=== PATIENT | female | born 1995 | race Caucasian/White ===

== ENCOUNTER → 2020-10-04 13:02 | Outpatient (CLI) | payer OTHER, SELFPAY ==
[2020-10-04 10:15] VITALS: BMI 25.7
[2020-10-06 21:06] LABS: HPV Reflexed? NOT INDICATED
== END ==
LOC: LAB 13:05 → LABSPEC 13:12
PROVIDERS: Visit Provider Nurse Practitioner Women's Health
DX: Z12.4 Encounter for screening for malignant neoplasm of cervix (principal)
CPT/HCPCS: 88175; G0145

== ENCOUNTER → 2021-01-30 18:15 | Emergency (ER) | payer OTHER, SELFPAY ==
[2020-10-04 10:15] VITALS: BMI 25.7
[2021-01-30 18:15] VITALS: BP 136/77; PULSE 85; RESP 16; TEMP 36.4; O2SAT 100; BMI 24.0
--- NOTE | 2021-01-30 18:59 | EDS_ITS ---
HPI HPI - Female History of Present Illness Chief Complaint: Vag Bld, Preg Informant: patient Narrative Narrative: Patient is a 25-year-old previous healthy female who presents to the emergency department for vaginal spotting. She is approximately 6 weeks . This is her first . She was sent in by her IMMIGRATION PATROL INSPECTOR for laboratory testing. She had some mild abdominal cramping with this. She denies any active bleeding. She denies any urinary symptoms. No back pain. No leg swelling or calf pain. She is not any blood thinning medications. She has not had an ultrasound yet due to the early gestation. She denies any chest pain, shortness of breath or lightheadedness. PFSH PFSH Allergy/AdvReac Type Severity Reaction Status Date / Time nitrofurantoin Allergy Intermediate Hives Verified 01/30/21 18:17 amoxicillin Allergy Mild Rash Verified 01/30/21 18:17 clindamycin Allergy Mild Rash Verified 01/30/21 18:17 Social History household members: spouse number of children: 0 current occupational status: employed current occupation: [employer] history of recent travel: No sexually active: Yes Smoking Status: Never smoker alcohol intake: current alcohol intake frequency: a few times a month substance use type: does not use what type of physical activity do you participate in: none seatbelt use: always do you feel safe at home: Yes additional social history: - Yordan BARNETT ROS ED Constitutional Constitutional ED: Denies chills or fever(s) Eyes Eyes: Denies change in vision ENT ENT ED: Denies epistaxis or rhinorrhea Cardiovascular Cardiovascular: Denies chest pain or palpitations Respiratory/Chest Respiratory/Chest: Denies cough, dyspnea or dyspnea on exertion Gastrointestinal Gastrointestinal: Reports abdominal pain; Denies diarrhea, nausea or vomiting Genitourinary Genitourinary ED: Denies dysuria, hematuria or urinary frequency Musculoskeletal Musculoskeletal: Denies back pain or neck pain Integumentary Denies rash Neurologic Neurologic: Denies dizziness, headache(s) or weakness EXAM Physical Exam Const Vital Signs: 01/30/21 18:15 Temperature 97.6 F L Temperature Source Temporal Pulse Rate 85 Respiratory Rate 16 Blood Pressure 136/77 H Blood Pressure Mean 96 Pulse Ox 100 Oxygen Delivery Method Room Air Positive well nourished and well developed General Appearance ED: well developed and NAD HEENT Reports normocephalic and head/scalp atraumatic Eyes PERRL and EOMs intact bilaterally Neck supple Resp normal respiratory effort and clear to auscultation bilaterally Auscultation: Negative for rales, rhonchi or wheezes Cardio regular rate, regular rhythm and no murmurs GI normal to inspection, nondistended, normoactive bowel sounds and non-tender Palpation: soft; Negative for guarding or rebound tenderness present Back/Spine no CVA tenderness Extremity normal to inspection General Extremety ED: Negative for edema or tenderness General Extremity: Negative for edema Neuro oriented x3, CN's II-XII intact bilaterally and no sensory deficits noted Sensorium / Orientation: alert Motor Exam: strength 5/5 throughout Psych mental status grossly normal Skin no rashes or lesions noted MDM MDM MDM Narrative Medical decision making narrative: Patient presents to the emerge department for vaginal spotting at 6 weeks . Upon arrival to the emergency department vital signs within normal limits. She is in no acute distress. Her IMMIGRATION PATROL INSPECTOR wanted her to have lab test done. Patient was found out actually not supposed to have come to the emergency department but just to have her lab work done. Patient had medical screening exam and she is stable for discharge to have this lab work done as an outpatient. Discharge Plan Triage Chief Complaint: Vag Bld, Preg ED Provider: Greyson Timmons Dx/Rx/DC Orders Clinical Impression: Vaginal bleeding in Disposition Disposition: Home, self care
--- NOTE | 2021-01-30 19:01 | ED.RN ---
REGISTRATION CALLED AND STATED THAT THIS PT HAS AN ORDER FOR LAB WORK FROM HER DR. PT SHOULD NOT HAVE BEEN SEEN IN THE ED.
== END | disposition home or self-care (01) ==
PROVIDERS: Emergency Provider Emergency Medicine
DX: O20.9 Hemorrhage in early pregnancy, unspecified (principal); Z3A.01 Less than 8 weeks gestation of pregnancy
CPT/HCPCS: 99281; A4216

== ENCOUNTER → 2021-01-30 19:04 | Outpatient (CLI) | payer OTHER, SELFPAY ==
[2021-01-30 18:15] VITALS: BMI 24.0
== END ==
PROVIDERS: Visit Provider Nurse Practitioner Women's Health
DX: O20.0 Threatened abortion (principal); Z3A.00 Weeks of gestation of pregnancy not specified
CPT/HCPCS: 84702; 86850; 86900; 86901

== ENCOUNTER → 2021-01-31 14:34 | Outpatient (CLI) | payer OTHER, SELFPAY ==
[2021-01-30 18:15] VITALS: BMI 24.0
--- NOTE | 2021-01-31 14:37 | US_ITS ---
STUDY: FIRST TRIMESTER OBSTETRICAL ULTRASOUND REASON FOR EXAM: Female, 25 years old viability LMP: 12/16/2020 TECHNIQUE: Transabdominal real-time exam grayscale image documentation. Transvaginal ultrasound was required for adequate visualization of the uterus and adnexal areas. TECHNICAL QUALITY: Adequate. PRIOR ULTRASOUND: None. FINDINGS: There is visualization of a single gestational sac in a normal intrauterine position. The mean sac diameter (MSD) measures 2.53 cm, indicating an estimated gestational age (EGA) of 7 weeks, 4 days. The gestational sac shape is within normal limits. There is a visualized yolk sac. The yolk sac measures 3.2 mm. The placenta is not visualized secondary to early gestational age. There is visualization of a live embryo. The crown-rump length (CRL) measures 0.42 cm, indicating an estimated gestational age (EGA) of 6 weeks, 2 days. There is demonstrated cardiac activity with a heart rate of 117 bpm. The estimated gestation age (EGA) by LMP is 6 weeks, 4 days. The estimated date of delivery (MARBIN) by LMP is 09/22/2021. The estimated gestation age (EGA) by US is 6 weeks, 6 days. The estimated date of delivery (MARBIN) by US is 09/20/2021. The uterus measures 9.0 x 7.0 x 5.7 cm. There is no demonstrated uterine fibroid. The cervix is closed. The right ovary measures 2.9 x 3.0 x 1.4 cm. There is no right ovarian cyst. There is no visualized right adnexal mass or complex lesion. Normal DOPPLER flow. The left ovary measures 3.0 x 2.2 x 1.9 cm. There is no left ovarian cyst. There is no visualized left adnexal mass or complex lesion. Normal DOPPLER flow. There is no fluid in the cul de sac. US/Transvaginal w/Preg US IMPRESSION: Single living intrauterine fetus of 6 weeks and 6 days with an MARBIN of 09/20/2021. No demonstrated intrauterine abnormality. Normal ovaries bilaterally no adnexal masses or free fluid. Electronically Signed: Soraya Flores MD at 15:59 EDT , Service support ,
== END ==
PROVIDERS: PCP Family Medicine; Referring Provider Nurse Practitioner Women's Health; Visit Provider Nurse Practitioner Women's Health
DX: O46.90 Antepartum hemorrhage, unspecified, unspecified trimester (principal); Z3A.00 Weeks of gestation of pregnancy not specified
CPT/HCPCS: 76817

== ENCOUNTER → 2021-02-01 16:51 | Outpatient (CLI) | payer OTHER, SELFPAY ==
[2021-01-30 18:15] VITALS: BMI 24.0
== END ==
PROVIDERS: PCP Family Medicine; Referring Provider Nurse Practitioner Women's Health; Visit Provider Nurse Practitioner Women's Health
DX: O20.0 Threatened abortion (principal); Z3A.00 Weeks of gestation of pregnancy not specified
CPT/HCPCS: 36415; 84702

== ENCOUNTER → 2021-02-12 13:42 | Outpatient (CLI) | payer OTHER, SELFPAY ==
[2021-01-30 18:15] VITALS: BMI 24.0
[2021-02-12 13:51] VITALS: BP 120/65; PULSE 114; RESP 16; TEMP 35.8; O2SAT 98; BMI 24.9
[2021-02-12] MEDS: 0.9% NaCl Peripheral Flush Adult/Peds IV (14:06)
[2021-02-12] MEDS: Ondansetron 4 MG/2 ML Vial IV (14:08)
[2021-02-12] MEDS: Dextrose 5%-Lactated Ringers 1,000 ML 999 ML IV (14:11)
[2021-02-12 15:21] VITALS: BP 105/55; PULSE 80; RESP 16; TEMP 35.9; O2SAT 100
== END ==
PROVIDERS: PCP Family Medicine; Referring Provider Obstetrics & Gynecology; Visit Provider Obstetrics & Gynecology
DX: E86.0 Dehydration (principal)
CPT/HCPCS: 96365; 96375; A4216; J2405

== ENCOUNTER → 2021-02-21 12:20 | Outpatient (CLI) | payer OTHER, SELFPAY ==
[2021-02-21 09:20] VITALS: BMI 24.9
[2021-02-23 03:07] LABS: Chlamydia By Nucleic Acid AMP Negative (Negative)
[2021-02-23 10:41] LABS: Gonococcus By Nucleic Acid AMP Negative (Negative)
== END ==
PROVIDERS: PCP Family Medicine; Referring Provider Obstetrics & Gynecology; Visit Provider Obstetrics & Gynecology
DX: Z34.00 Encounter for supervision of normal first pregnancy, unspecified trimester (principal)
CPT/HCPCS: 87491; 87591

== ENCOUNTER → 2021-03-07 12:30 | Outpatient (CLI) | payer OTHER, SELFPAY ==
[2021-02-21 09:20] VITALS: BMI 24.9
[2021-03-07 13:24] LABS: Absolute Lymphocyte Count 2.48 X10^3/uL (0.83-4.51); Absolute Neutrophil Count 5.4 X10^3/uL (2.0-7.7); Basophil# 0.03 X10^3/uL; Basophil% 0.4 % (0-1); Eosinophil# 0.01 X10^3/uL; Eosinophils% 0.1 % (0-5); Hematocrit 38.1 % (37-47); Hemoglobin 12.6 g/dL (12.0-15.0); Lymphocyte # 2.48 X10^3/ul (0.83-4.51); Lymphocyte % 29.6 % (19-41); Mean Corp Hgb Conc 33.1 g/dL (32-36); Mean Corpuscular Hgb 28.2 pg (27.0-32.0); Mean Corpuscular Volume 85.2 fL (81-99); Mean Platelet Vol. 10.9 fl (6.2-12.0); Monocyte# 0.47 X10^3/uL; Monocyte% 5.6 % (0-10); NRBC Flagged by Analyzer 0 % (0-5); Neutrophil # 5.38 X10^3/uL (2.7-7.7); Neutrophil % 64.1 % (47-70); Platelet Count 280 K/mm3 (150-450); RBC Distribution Width CV 11.9 % (11.6-14.6); RBC Distribution Width SD 36.6 fl (35.1-43.9); Red Blood Count 4.47 M/mm3 (4.2-5.4); White Blood Count 8.4 K/mm3 (4.4-11.0)
[2021-03-07 13:36] LABS: NATERA MAILED SPECIMEN
[2021-03-07 13:38] LABS: Prothrombin Time (Protime)PT. 12.2 SECONDS (11.7-14.9)
[2021-03-07 13:39] LABS: Partial Thromboplast Time 26.9 Seconds (24.1-36.2)
[2021-03-07 13:54] LABS: ALB/GLOB Ratio 0.9 RATIO (0.9-2.4); AST(SGOT) 13 U/L (15-37); Alanine Aminotransfer ALT/SGPT 12 U/L (13-56); Albumin, Serum 3.3 g/dL (3.2-5.0); Alkaline Phosphatase 45 U/L (45-117); Anion Gap 5 (5-15); BUN 7 mg/dL (7-18); BUN/Creat Ratio 9.7 RATIO (10-20); Calcium,Total 8.7 mg/dL (8.5-10.1); Chloride 106 mmol/L (98-107); Creatinine, Serum 0.72 mg/dL (0.55-1.02); EST Glomerular Filtration Rate 104 mL/min (>60); Est Glom Filt Rate - Afr Amer 126 mL/min (>60); Globulin 3.5 g/dL (2.2-4.2); Glucose 63 mg/dL (74-106); Potassium 3.4 mmol/L (3.5-5.1); Protein, Total 6.8 g/dL (6.4-8.2); Sodium Level 137 mmol/L (136-145)
[2021-03-07 14:00] LABS: Amphetamine Urine VISTA NEGATIVE (<1000 ng/mL); Barbiturate Urine VISTA NEGATIVE (< 200 ng/mL); Benzodiazepine Urine VISTA NEGATIVE (< 200 ng/mL); Cocaine Urine VISTA NEGATIVE (< 300 ng/mL); Ecstacy Urine VISTA NEGATIVE (< 500 ng/mL); Methadone Urine VISTA NEGATIVE (< 300 ng/mL); PCP Urine VISTA NEGATIVE (< 25 ng/mL); THC Urine VISTA NEGATIVE (< 50 ng/mL); Vista UDS pH Range 6
[2021-03-07 14:32] LABS: HIV - WCH Non-Reactive (Nonreactive); Hepatitis B Surface Antigen Non-Reactive (Nonreactive); Hepatitis C Antibody Non-Reactive (Nonreactive); Rubella IgG Reactive (Nonreactive); Syphilis Antibodies Non-reactive
== END ==
PROVIDERS: PCP Family Medicine; Referring Provider Obstetrics & Gynecology; Visit Provider Obstetrics & Gynecology
DX: Z34.00 Encounter for supervision of normal first pregnancy, unspecified trimester (principal); Z83.2 Family history of diseases of the blood and blood-forming organs and certain disorders involving the immune mechanism
CPT/HCPCS: 36415; 80053; 80307; 85025; 85610; 85730; 86703; 86762; 86780; 86803; 86850; 86900; 86901; 87086; 87088; 87340

== ENCOUNTER → 2021-06-11 11:04 | Outpatient (CLI) | payer OTHER, SELFPAY ==
[2021-06-11 11:59] LABS: Absolute Lymphocyte Count 2.29 X10^3/uL (0.83-4.51); Absolute Neutrophil Count 5.7 X10^3/uL (2.0-7.7); Basophil# 0.02 X10^3/uL; Basophil% 0.2 % (0-1); Eosinophil# 0.02 X10^3/uL; Eosinophils% 0.2 % (0-5); Hematocrit 34.2 % (37-47); Hemoglobin 11.4 g/dL (12.0-15.0); Lymphocyte # 2.29 X10^3/ul (0.83-4.51); Lymphocyte % 26.5 % (19-41); Mean Corp Hgb Conc 33.3 g/dL (32-36); Mean Corpuscular Hgb 30.2 pg (27.0-32.0); Mean Corpuscular Volume 90.7 fL (81-99); Mean Platelet Vol. 10.7 fl (6.2-12.0); Monocyte# 0.62 X10^3/uL; Monocyte% 7.2 % (0-10); NRBC Flagged by Analyzer 0 % (0-5); Neutrophil # 5.65 X10^3/uL (2.7-7.7); Neutrophil % 65.3 % (47-70); Platelet Count 230 K/mm3 (150-450); RBC Distribution Width SD 42.8 fl (35.1-43.9); Red Blood Count 3.77 M/mm3 (4.2-5.4); White Blood Count 8.7 K/mm3 (4.4-11.0)
[2021-06-11 12:09] LABS: Glucose Challenge Gest 1H 50g 106 mg/dL (70-140)
== END ==
PROVIDERS: PCP Family Medicine; Referring Provider Obstetrics & Gynecology; Visit Provider Obstetrics & Gynecology
DX: Z34.00 Encounter for supervision of normal first pregnancy, unspecified trimester (principal)
CPT/HCPCS: 36415; 82950; 85025

== ENCOUNTER 2021-06-16 22:55 | Outpatient (CLI) | payer OTHER, SELFPAY ==
[2021-06-16 23:20] VITALS: BP 110/73; PULSE 86; TEMP 35.9
[2021-06-16 23:28] VITALS: BMI 25.9
--- NOTE | 2021-06-17 21:08 | OB.TRI.PN_ITS ---
Progress Notes Date of Service: 06/16/21 Progress Note: Patient presents for triage evaluation secondary to fall with minimal abdominal involvemtn FHT: 140 Moderate variability reactive no decelerations category I tracing [place]: no regular Contractions Assessment and plan: abdominal trauma minimal, good fm was initially decrease at home Reactive NST, reassuring maternal and status patient discharged to home to follow-up as scheduled. See problem list details for additional plan information. Charges/Coding Procedures Urinary/Genital 52xxx-59xxx: 04992-57 non-stress test Interp
== END 2021-06-16 23:55 | disposition home or self-care (01) ==
LOC: WPOUT 23:15 → WP 23:16
PROVIDERS: PCP Family Medicine; Visit Provider Obstetrics & Gynecology
DX: O9A.219 Injury, poisoning and certain other consequences of external causes complicating pregnancy, unspecified trimester (principal); S39.91XA Unspecified injury of abdomen, initial encounter; Z3A.00 Weeks of gestation of pregnancy not specified; W19.XXXA Unspecified fall, initial encounter
CPT/HCPCS: 59025; 59050; 99218; G0378

== ENCOUNTER → 2021-06-26 10:34 | Outpatient (CLI) | payer OTHER, SELFPAY ==
[2021-06-26 11:08] LABS: Absolute Lymphocyte Count 2.19 X10^3/uL (0.83-4.51); Absolute Neutrophil Count 6.5 X10^3/uL (2.0-7.7); Basophil# 0.03 X10^3/uL; Basophil% 0.3 % (0-1); Eosinophil# 0.03 X10^3/uL; Eosinophils% 0.3 % (0-5); Hemoglobin 11.3 g/dL (12.0-15.0); Lymphocyte # 2.19 X10^3/ul (0.83-4.51); Lymphocyte % 23.9 % (19-41); Mean Corp Hgb Conc 33.2 g/dL (32-36); Mean Corpuscular Hgb 30.3 pg (27.0-32.0); Mean Corpuscular Volume 91.2 fL (81-99); Monocyte# 0.41 X10^3/uL; Monocyte% 4.5 % (0-10); NRBC Flagged by Analyzer 0 % (0-5); Neutrophil # 6.45 X10^3/uL (2.7-7.7); Neutrophil % 70.5 % (47-70); Platelet Count 244 K/mm3 (150-450); RBC Distribution Width CV 12.7 % (11.6-14.6); RBC Distribution Width SD 42.4 fl (35.1-43.9); Red Blood Count 3.73 M/mm3 (4.2-5.4); White Blood Count 9.2 K/mm3 (4.4-11.0)
[2021-06-26 11:29] LABS: Glucose Challenge Gest 1H 50g 142 mg/dL (70-140)
== END ==
PROVIDERS: PCP Family Medicine; Visit Provider Obstetrics & Gynecology
DX: Z34.90 Encounter for supervision of normal pregnancy, unspecified, unspecified trimester (principal)
CPT/HCPCS: 36415; 82950; 85025

== ENCOUNTER → 2021-07-02 06:53 | Outpatient (CLI) | payer OTHER, SELFPAY ==
[2021-07-02 07:59] LABS: Glucose GTT-Gestation. Fasting 85 mg/dL (<105)
[2021-07-02 10:24] LABS: Glucose GTT-Gestational 1 Hr 140 mg/dL (<190)
[2021-07-02 10:45] LABS: Glucose GTT-Gestational 2 Hr 113 mg/dL (<165)
[2021-07-02 12:40] LABS: Glucose GTT-Gestational 3 Hr 115 L (<145)
== END ==
PROVIDERS: PCP Family Medicine; Referring Provider Nurse Practitioner Women's Health; Visit Provider Nurse Practitioner Women's Health
DX: Z13.1 Encounter for screening for diabetes mellitus (principal)
CPT/HCPCS: 36415; 82951; 82952

== ENCOUNTER 2021-08-16 10:50 | Outpatient (CLI) | payer OTHER, SELFPAY ==
[2021-08-16 11:01] VITALS: BMI 28.5
[2021-08-16 11:14] VITALS: BP 126/78; PULSE 116; TEMP 36.6
[2021-08-16 11:14] LABS: Bacteria 0 SEEN /hpf (None Seen); Mucous, Urine 0 SEEN /hpf (<or=2+); Squamous Epithelial Cells - UA 0 SEEN /hpf (5-10); White Blood Cells 0 SEEN /hpf (0-5)
[2021-08-16 11:17] VITALS: PULSE 99; O2SAT 97
[2021-08-16 11:23] LABS: Color, Urine Yellow (Yellow); Glucose, Dipstick Normal (Normal); Ketone-Dipstick Negative (Negative); Leukocyte Esterase-Dipstick Negative /ul (Negative); Nitrite-Dipstick Negative (Negative); Occult Blood-Urine 10 /ul (Negative); Protein-Dipstick Negative (Negative); Specific Gravity, Urine 1.015 (1.002-1.030); Urine Bilirubin Dipstick Negative (Negative); Urine Clarity Sl. Cloudy (Clear); Urine Urobilinogen Normal (Normal)
[2021-08-16 11:31] LABS: Red Blood Cells-Urine 0-5 SEEN /hpf (0-5)
[2021-08-16 11:41] LABS: ROM Internal Control Test YES-OK TO RESULT pt. (Internal QC); ROM Patient Test Negative (Negative)
--- NOTE | 2021-08-16 12:17 | OB.TRI.HP_ITS ---
HPI - General HPI Narrative DONTE ST, is a 25 y/o F who presents@35 weeks with leaking fluid without labor contractions. Maternal Data Information MARBIN Calculator Estimated Delivery Date Method Current WG Current Estimate 09/20/21 Ultrasound #1 35w 0d Other Estimates 09/22/21 LMP (Certain) 34w 5d PFSH PFSH Medical History Abnormal glucose affecting Allergy/AdvReac Type Severity Reaction Status Date / Time nitrofurantoin Allergy Intermediate Hives Verified 08/06/21 12:10 amoxicillin Allergy Mild Rash Verified 08/06/21 12:10 clindamycin Allergy Mild Rash Verified 08/06/21 12:10 Social History adopted: No household members: spouse number of children: 0 current occupational status: employed current occupation: [employer] pets and animals: Yes pets and animals: dog(s) history of recent travel: No sexually active: Yes Smoking Status: Never smoker alcohol intake: current alcohol intake frequency: a few times a month details: none with substance use type: does not use what type of physical activity do you participate in: none seatbelt use: always do you feel safe at home: Yes additional social history: - Yordan History 1 Elective abortions Hx Para Spontaneous abortions Hx # Term Pregnancies Ectopic pregnancies Hx # Pregnancies Multiple births # of living children Visit Details Expected Delivery Route/Plan Labor Preferences- CB/BF classes: scheduled labor support person: Yordan labor intervention preferences: [] pain management options preferred: epidural cut cord/dad catch: cord : yes PP control planned: discussed discussed possible routes of delivery and associated risks: [] special requests: [] Plans covid status: non immune, counseled regarding risk of covid in vs vaccination and considering vaccination flu vaccine: given tdap vaccine: given rhogam: NA LARC form signed: yes movement and labor precautions reviewed. Problem list reviewed and updated with the most current plan of care details and appropriate orders placed. Relevant counseling for the gestational age provided. Continue routine care and follow up unless otherwise noted in visit notes/problem list details OB Flowsheet Initial Weight: 140 lb Date -?-?-?-?-?-?-?-?-?-?-?-?- EGA Weight BP Urine Prot -?-?-?-?-?-?-?-?-?-?-?-?- Glucose FHR FuHt Pres Dilation -?-?-?-?-?-?-?-?-?-?-?-?- Effaced St Visit Note 02/21/21 -?-?-?-?-?-?-?-?-?-?-?-?- 9w 6d 142 lb 4 oz (+2 lb 4 oz) 124/70 -?-?-?-?-?-?-?-?-?-?-?-?- 160 -?-?-?-?-?-?-?-?-?-?-?-?- GP - CRL 26mm co nsistent with LMP 03/21/21 -?-?-?-?-?-?-?-?-?-?-?-?- 13w 6d 140 lb 4 oz (+4 oz) 116/80 Negative -?-?-?-?-?-?-?-?-?-?-?-?- Negative 145 -?-?-?-?-?-?-?-?-?-?-?-?- GP - no bleeding . Occasional cramping. Order sent for anatomy and MFM consult. 04/16/21 -?-?-?-?-?-?-?-?-?-?-?-?- 17w 4d 142 lb (+2 lb) 118/62 -?-?-?-?-?-?-?-?-?-?-?-?- 145 -?-?-?-?-?-?-?-?-?-?-?-?- SM- strugglin wi th constipation 05/14/21 -?-?-?-?-?-?-?-?-?-?-?-?- 21w 4d 145 lb 6 oz (+5 lb 6 oz) 130/72 Negative -?-?-?-?-?-?-?-?-?-?-?-?- Negative 145 -?-?-?-?-?-?-?-?-?-?-?-?- SM- no v lof goo d fm no regular ctx 06/11/21 -?-?-?-?-?-?-?-?--?-?-?-?- 25w 4d 149 lb 4 oz (+9 lb 4 oz) 124/70 Negative -?-?-?-?-?-?-?-?-?-?-?-?- Negative 140 -?-?-?-?-?-?-?-?-?-?-?-?- SM- no vb lof go od fm nor egular ctx SM- no vb lof good fm nor eg ular ctx late blood draw and she needs a repeat 06/26/21 -?-?-?-?-?-?-?-?-?-?-?-?- 27w 5d 153 lb 2 oz (+13 lb 2 oz) 128/66 Trace -?-?-?-?-?-?-?-?-?-?-?-?- Negative 153 28 -?-?-?-?-?-?-?-?-?-?-?-?- -No VB, LOF. G ood Fm. 28 wk labs, larc, tdap. 07/09/21 -?-?-?-?-?-?-?-?-?-?-?-?- 29w 4d 154 lb (+14 lb) 112/76 Negative -?-?-?-?-?-?-?-?-?-?-?-?- Negative 145 29 -?-?-?-?-?-?-?-?-?-?-?-?- - no vb lof go od fm no regular ctx 07/23/21 -?-?-?-?-?-?-?-?-?-?-?-?- 31w 4d 160 lb 4 oz (+20 lb 4 oz) 114/70 Trace -?-?-?-?-?-?-?-?-?-?-?-?- Negative 147 31 Cephalic -?-?-?-?-?-?-?-?-?-?-?-?- -NO VB, LOF. G ood FM. No CTX 08/06/21 -?-?-?-?-?-?-?-?-?-?-?-?- 33w 4d 163 lb (+23 lb) 112/78 Negative -?-?-?-?-?-?-?-?-?-?-?-?- Negative 145 34 Cephalic -?-?-?-?-?-?-?-?-?-?-?-?- SM- n ovb lof go od fm no reuglar ctx some irregular 08/16/21 -?-?-?-?-?-?-?-?-?-?-?-?- 35w 0d 166 lb 3.657 oz (+26 lb 3.657 oz) 126/78 126/78 Negative mg/dl (Nega tive) -?-?-?-?-?-?-?-?-?-?-?-?- 140 -?-?-?-?-?-?-?-?-?-?-?-?- triage visit ROS Constitutional Constitutional: Reports systems reviewed and no addt'l complaints, except as documented Gastrointestinal Gastrointestinal: Denies bloating, constipation, cramping, diarrhea, nausea or vomiting Genitourinary Genitourinary: Reports other Details: Denies vaginal odor, vaginal bleeding, or vaginal discharge ; Denies difficulty urinating or flank pain Physical Exam HEENT normocephalic Resp normal respiratory effort and normal air movement no CVA tenderness External Female Exam: normal appearance of the urethra; Negative for external swelling Speculum Exam - Cervix: cervical os closed Amniotic Fluid: ROM+plus negative - and other Lynsey 18. no leaking on exam Extremity normal to inspection General Extremity: edema bilateral (trace ) NST FHR Rate Baby A Baseline: 140 Variability:: Moderate Accelerations:: 15 x 15 Decelerations:: None NST Reactive:: Yes FHR Category:: Category I Assessment & Plan (1) False labor: COMMENT: Lynsey 18 in triage rom + neg PLAN: Patient presents for triage evaluation secondary to leaking fluid FHT: Moderate variability reactive no decelerations category I tracing [place]: irregular Contractions Assessment and plan: Reactive NST, reassuring maternal and status patient discharged to home to follow-up in 1 week See problem list details for additional plan information. (2) Abnormal glucose affecting : COMMENT: normal 3 hr GTT (3) History of tetanus, diphtheria, and acellular pertussis booster vaccination (Tdap): COMMENT: 06/26/21 (4) Supervision of normal first , antepartum: COMMENT: PRR MARBIN 09/20/21 girl Maisyn Spouse Lars (5) : QUALIFIERS: Weeks of gestation: 29 weeks Qualified Code(s): Z3A.29 - 29 weeks gestation of COMMENT: declines carrier LR genetics girl. declined AFP screen. NL anatomy Charges/Coding Multi Select Codes Visit Charges Office Visit/Consults: 40211 OV L3 Est Urinary/Genital Urinary/Genital CPT Codes: 11657-53 non-stress test Interp
--- NOTE | 2021-08-29 21:07 | PCM.PN.OB ---
Subjective Subjective Annette is a 21 y/o @ 35 weeks 0 days presenting with the complaint of leaking fluid. no vaginal bleeding, dec fm, or frequent contractions Objective Data Objective Data Vital Signs: Vital Signs Temp Pulse BP Pulse Ox 97.8 F 99 126/78 H 97 08/16/21 11:14 08/16/21 11:17 08/16/21 11:14 08/16/21 11:17 Weight: 166 lb 3.657 oz Body Mass Index (BMI) 28.5 Lab / Micro Data Micro: Microbiology 08/16/21 12:15 Genital vaginal Group B Streptococcus Culture - Final Group B Beta Streptococcus is not isolated. ROS Constitutional Constitutional: Reports systems reviewed and no addt'l complaints, except as documented Gastrointestinal Gastrointestinal: Denies bloating, constipation, cramping, diarrhea, nausea or vomiting Genitourinary Genitourinary: Reports other Details: Denies vaginal odor, vaginal bleeding, or vaginal discharge ; Denies difficulty urinating or flank pain Physical Exam HEENT normocephalic Resp normal respiratory effort and normal air movement no CVA tenderness Extremity normal to inspection General Extremity: edema bilateral (trace ) NST FHR Rate Baby A Baseline: 140 Variability:: Moderate Accelerations:: 15 x 15 Decelerations:: None NST Reactive:: Yes FHR Category:: Category I Charges/Coding Multi Select Codes Visit Charges Office Visit/Consults: 06581 OV L3 Est Urinary/Genital Urinary/Genital CPT Codes: 76649-60 non-stress test Interp
[2021-09-24] VITALS (71 sets, daily range): BP systolic 110–181; BP diastolic 55–97; PULSE 76–169; TEMP 36.2–37.3; O2SAT 82–100
[2021-09-25 00:13] VITALS: BP 120/63; PULSE 100
[2021-09-25 03:15] VITALS: BP 123/75; PULSE 96
[2021-09-25 08:47] VITALS: BP 126/73; PULSE 93
== END 2021-08-16 12:25 | disposition home or self-care (01) ==
LOC: WPOUT 10:53 → WP 10:53
PROVIDERS: PCP Family Medicine; Visit Provider Obstetrics & Gynecology
DX: O47.00 False labor before 37 completed weeks of gestation, unspecified trimester (principal); O99.810 Abnormal glucose complicating pregnancy; Z3A.35 35 weeks gestation of pregnancy; Z23 Encounter for immunization
CPT/HCPCS: 59025; 59050; 81001; 84112; 87081; 99218; G0378

== ENCOUNTER 2021-09-24 07:45 | Inpatient (IN) | payer OTHER, SELFPAY ==
[2021-09-24 05:11] VITALS: BMI 30.2
--- NOTE | 2021-09-24 08:22 | HP.PCM.OB_ITS ---
HPI - General General Date of Admission: 09/24/21 HPI Narr[address] DONTE ST, is a 26 F who presents IAL made change to 3 cm with regualr ctx. Maternal Data Information MARBIN Calculator Estimated Delivery Date Method Current WG Current Estimate 09/20/21 Ultrasound #1 40w 4d Other Estimates 09/22/21 LMP (Certain) 40w 2d PFSH PFSH Medical History Abnormal glucose affecting Home Medications famotidine 20 mg tablet 20 mg PO BID 08/28/21 [History Last Taken Unknown] Allergy/AdvReac Type Severity Reaction Status Date / Time nitrofurantoin Allergy Intermediate Hives Verified 09/24/21 05:19 amoxicillin Allergy Mild Rash Verified 09/24/21 05:19 clindamycin Allergy Mild Rash Verified 09/24/21 05:19 Social History adopted: No household members: spouse number of children: 0 current occupational status: employed current occupation: [employer] pets and animals: Yes pets and animals: dog(s) history of recent travel: No sexually active: Yes Smoking Status: Never smoker alcohol intake: current alcohol intake frequency: a few times a month details: none with substance use type: does not use what type of physical activity do you participate in: none seatbelt use: always do you feel safe at home: Yes additional social history: - Yordan History 1 Elective abortions Hx Para Spontaneous abortions Hx # Term Pregnancies Ectopic pregnancies Hx # Pregnancies Multiple births # of living children Visit Details Expected Delivery Route/Plan Labor Preferences- CB/BF classes: scheduled labor support person: Yordan labor intervention preferences: [] pain management options preferred: epidural cut cord/dad catch: cord : yes PP control planned: discussed discussed possible routes of delivery and associated risks: [] special requests: [] Plans covid status: non immune, counseled regarding risk of covid in vs vaccination and considering vaccination flu vaccine: given tdap vaccine: given rhogam: NA LARC form signed: yes movement and labor precautions reviewed. Problem list reviewed and updated with the most current plan of care details and appropriate orders placed. Relevant counseling for the gestational age provided. Continue routine care and follow up unless otherwise noted in visit notes/problem list details OB Flowsheet Initial Weight: 140 lb Date -?-?-?-?-?-?-?-?-?-?-?-?- EGA Weight BP Urine Prot -?-?-?-?-?-?-?-?-?-?-?-?- Glucose FHR FuHt Pres Dilation -?-?-?-?-?-?-?-?-?-?-?-?- Effaced St Visit Note 02/21/21 -?-?-?-?-?-?-?-?-?-?-?-?- 9w 6d 142 lb 4 oz (+2 lb 4 oz) 124/70 -?-?-?-?-?-?-?-?-?-?-?-?- 160 -?-?-?-?-?-?-?-?-?-?-?-?- GP - CRL 26mm co nsistent with LMP 03/21/21 -?-?-?-?-?-?-?-?-?-?-?-?- 13w 6d 140 lb 4 oz (+4 oz) 116/80 Negative -?-?-?-?-?-?-?-?-?-?-?-?- Negative 145 -?-?-?-?-?-?-?-?-?-?-?-?- GP - no bleeding . Occasional cramping. Order sent for anatomy and MFM consult. 04/16/21 -?-?-?-?-?-?-?-?-?-?-?-?- 17w 4d 142 lb (+2 lb) 118/62 -?-?-?-?-?-?-?-?-?-?-?-?- 145 -?-?-?-?--?-?-?-?-?-?-?-?- SM- strugglin wi th constipation 05/14/21 -?-?-?-?-?-?-?-?-?-?-?-?- 21w 4d 145 lb 6 oz (+5 lb 6 oz) 130/72 Negative -?-?-?-?-?-?-?-?-?-?-?-?- Negative 145 -?-?-?-?-?-?-?-?-?-?-?-?- SM- no v lof goo d fm no regular ctx 06/11/21 -?-?-?-?-?-?-?-?-?-?-?-?- 25w 4d 149 lb 4 oz (+9 lb 4 oz) 124/70 Negative -?-?-?-?-?-?-?-?-?-?-?-?- Negative 140 -?-?-?-?-?-?-?-?-?-?-?-?- SM- no vb lof go od fm nor egular ctx SM- no vb lof good fm nor eg ular ctx late blood draw and she needs a repeat 06/26/21 -?-?-?-?-?-?-?-?-?-?-?-?- 27w 5d 153 lb 2 oz (+13 lb 2 oz) 128/66 Trace -?-?-?-?-?-?-?-?-?-?-?-?- Negative 153 28 -?-?-?-?-?-?-?-?-?-?-?-?- MH-No VB, LOF. G ood Fm. 28 wk labs, larc, tdap. 07/09/21 -?-?-?-?-?-?-?-?-?-?-?-?- 29w 4d 154 lb (+14 lb) 112/76 Negative -?-?-?-?-?-?-?-?-?-?-?-?- Negative 145 29 -?-?-?-?-?-?-?-?-?-?-?-?- SM- no vb lof go od fm no regular ctx 07/23/21 -?-?-?-?-?-?-?-?-?-?-?-?- 31w 4d 160 lb 4 oz (+20 lb 4 oz) 114/70 Trace -?-?-?-?-?-?-?-?-?-?-?-?- Negative 147 31 Cephalic -?-?-?-?-?-?-?-?-?-?-?-?- MH-NO VB, LOF. G ood FM. No CTX 08/06/21 -?-?-?-?-?-?-?-?-?-?-?-?- 33w 4d 163 lb (+23 lb) 112/78 Negative -?-?-?-?-?-?-?-?-?-?-?-?- Negative 145 34 Cephalic -?-?-?-?-?-?--?-?-?-?-?-?- SM- n ovb lof go od fm no reuglar ctx some irregular 08/16/21 -?-?-?-?-?-?-?-?-?-?-?-?- 35w 0d 166 lb 3.657 oz (+26 lb 3.657 oz) 126/78 126/78 135/82 122/77 Negative mg/dl (Nega tive) -?-?-?-?-?-?-?-?-?-?-?-?- 140 -?-?-?-?-?-?-?-?-?-?-?-?- triage visit 08/21/21 -?-?-?-?-?-?-?-?-?-?-?-?- 35w 5d 170 lb (+30 lb) 138/80 Negative -?-?-?-?-?-?-?-?-?-?-?-?- Negative 145 37 Cephalic -?-?-?-?-?-?-?-?-?-?-?-?- SM- no vb lof go od fm nor egular ctx 08/28/21 -?-?-?-?-?-?-?-?-?-?-?-?- 36w 5d 173 lb 2 oz (+33 lb 2 oz) 138/80 Negative -?-?-?-?-?-?-?-?-?-?-?-?- Negative 145 36 Cephalic 0 -?-?-?-?-?-?-?-?-?-?-?-?- 50 -3 JV- no lof , vaginal bleeding, or dec fm. was in triage on 08/16 with possible LOF. amnisure was neg and gbs was neg, and AUDI was normal 09/03/21 -?-?-?-?-?-?-?-?-?-?-?-?- 37w 4d 174 lb 8 oz (+34 lb 8 oz) 130/78 Negative -?-?-?-?-?-?-?-?-?-?-?-?- Negative 137 36 Cephalic 1 -?-?-?-?-?-?-?-?-?-?-?-?- 50 -3 JV- no lof ,v aginal bleeding, or dec fm GBS is negative. 09/10/21 -?-?-?-?-?-?-?-?-?-?-?-?- 38w 4d 176 lb (+36 lb) 92/70 -?-?-?-?-?-?-?-?-?-?-?-?- 125 38 Cephalic 1 -?-?-?-?-?-?-?-?-?-?-?-?- SM- no vb lof go od fm no regular ctx 09/17/21 -?-?-?-?-?-?-?-?-?-?-?-?- 39w 4d 174 lb (+34 lb) 130/82 Negative -?-?-?-?-?-?-?-?-?-?-?-?- Negative 125 39 Cephalic -?-?-?-?-?-?-?-?-?-?-?-?- SM- no vb lof go od fm no reuglar ctx 09/24/21 -?-?-?-?-?-?-?-?--?-?-?-?- 40w 4d 176 lb (+36 lb) -?-?-?-?-?-?-?-?-?-?-?-?- -?-?-?-?-?-?-?-?-?-?-?-?- NST FHR Rate Baby A Baseline: 140 Variability:: Moderate Accelerations:: 15 x 15 Decelerations:: None NST Reactive:: Yes FHR Category:: Category I Uterine Activity:: q3-5 ROS Constitutional Constitutional: Reports systems reviewed and no addt'l complaints, except as documented ENT HEENT: Reports systems reviewed and no addt'l complaints, except as documented Cardiovascular Cardiovascular: Reports systems reviewed and no addt'l complaints, except as documented Respiratory/Chest Respiratory/Chest: Reports systems reviewed and no addt'l complaints, except as documented Gastrointestinal Gastrointestinal: Reports systems reviewed and no addt'l complaints, except as documented and nausea; Denies abdominal pain Genitourinary Genitourinary: Reports systems reviewed and no addt'l complaints, except as documented, contractions Details: present and frequency (regular ) and movement Details: present Musculoskeletal Musculoskeletal: Reports systems reviewed and no addt'l complaints, except as documented Integumentary Integumentary: Reports as per HPI Neurologic Neurologic: Reports systems reviewed and no addt'l complaints, except as documented Endocrine Endocrinology: Reports systems reviewed and no addt'l complaints, except as documented Vital Signs Vital Signs Vital Signs: Weight Weight: 176 lb Body Mass Index (BMI) 30.2 Physical Exam Const alert, oriented x3 and healthy appearing Constitutional Narrative: uncomfortable with contractions HEENT normocephalic and moist oral mucous membranes Head and Scalp: atraumatic Neck full ROM, no lymphadenopathy, supple and thyroid normal General: trachea midline Thyroid: thyroid normal Lymph Lymphatic: no lymphadenopathy noted Chest inspection of chest normal Resp normal respiratory effort Cardio regular rate GI normal to inspection, nondistended, normoactive bowel sounds, soft to palpation and non-tender Inspection: gravid external exam normal Bimanual Exam - Vag & Uterus: uterus non-tender Manual OB Exam: estimated gestational size appropriate, presentation cephalic, dilated, effaced and station Extremity normal to inspection General Extremity: Negative for edema Skin no rashes or lesions noted Neuro deep tendon reflexes 2+ bilaterally Motor Exam: strength 5/5 throughout and clonus absent Psych mental status grossly normal Labs Labs Labs: Blood Type A POSITIVE Antibody Screen NEGATIVE Hct 34.0 % (37-47) L Hgb 11.3 g/dL (12.0-15.0) L Obstetrics US Syphilis Total Ab Non-reactive Rubella IgG Antibody Reactive (Nonreactive) Hep Bs Antigen Non-Reactive (Nonreactive) Neisseria gonorrhoeae DNA ([place]) Negative (Negative) HIV 1&2 Antibody Non-Reactive (Nonreactive) Glucose 1 Hr 50 gm 142 mg/dL (70-140) H Assessment & Plan (1) Abnormal glucose affecting : COMMENT: normal 3 hr GTT (2) Supervision of normal first , antepartum: COMMENT: PRR MARBIN 09/20/21 girl Maisyn Spouse Lars (3) : QUALIFIERS: Weeks of gestation: 39 weeks Qualified Code(s): Z 3A.39 - 39 weeks gestation of COMMENT: declines carrier LR genetics girl. declined AFP screen. NL anatomy; GBS NEG (4) Active labor at term: COMMENT: IAL admit exp management, AROM PRN, Pit PRN. Epi PRN
[2021-09-24] MEDS: Lactated Ringers 1,000 ML 50 ML IV (08:25)
[2021-09-24 08:36] LABS: Absolute Lymphocyte Count 2.54 X10^3/uL (0.83-4.51); Absolute Neutrophil Count 6.6 X10^3/uL (2.0-7.7); Basophil# 0.02 X10^3/uL; Basophil% 0.2 % (0-1); Eosinophil# 0.02 X10^3/uL; Eosinophils% 0.2 % (0-5); Hematocrit 35.5 % (37-47); Hemoglobin 10.9 g/dL (12.0-15.0); Lymphocyte # 2.54 X10^3/ul (0.83-4.51); Lymphocyte % 25.9 % (19-41); Mean Corp Hgb Conc 30.7 g/dL (32-36); Mean Corpuscular Volume 81.4 fL (81-99); Mean Platelet Vol. 12.2 fl (6.2-12.0); Monocyte# 0.62 X10^3/uL; Monocyte% 6.3 % (0-10); NRBC Flagged by Analyzer 0 % (0-5); Neutrophil # 6.56 X10^3/uL (2.7-7.7); Platelet Count 210 K/mm3 (150-450); RBC Distribution Width SD 41.2 fl (35.1-43.9); Red Blood Count 4.36 M/mm3 (4.2-5.4); White Blood Count 9.8 K/mm3 (4.4-11.0)
[2021-09-24] MEDS: Lactated Ringers 500 ML 999 ML IV ×4 (11:17→18:38)
[2021-09-24] MEDS: fentaNYL-bupivacaine (epidural) 100 ML BAG EPIDURAL ×2 (12:33→17:31)
[2021-09-24] MEDS: Lactated Ringers 1,000 ML 200 ML IV (16:36)
[2021-09-24] MEDS: Ondansetron 4 MG/2 ML Vial IV (16:51)
[2021-09-24] MEDS: Oxytocin 30 units/NS 500 ml 30 UNITS/500 ML IV.SOLN 334 UNITS IV (19:00)
--- NOTE | 2021-09-24 19:27 | OP.PCM_ITS ---
Assessment & Plan (1) Active labor at term: COMMENT: IAL admit exp management, AROM PRN, Pit PRN. Epi PRN (2) Abnormal glucose affecting : COMMENT: normal 3 hr GTT (3) Supervision of normal first , antepartum: COMMENT: PRR MARBIN 09/20/21 girl Ronak Spouse Lars (4) : QUALIFIERS: Weeks of gestation: 39 weeks Qualified Code(s): Z3A.39 - 39 weeks gestation of COMMENT: declines carrier LR genetics girl. declined AFP screen. NL anatomy; GBS NEG (5) Vaginal delivery: COMMENT: IAL covid SM girl Ronak (6) COVID-19 affecting , antepartum: COMMENT: pos at delivery, asymptomatic Maternal Data Information MARBIN Calculator Estimated Delivery Date Method Current WG Current Estimate 09/20/21 Ultrasound #1 40w 4d Other Estimates 09/22/21 LMP (Certain) 40w 2d Vaginal Delivery Operative Information Date of Procedure: 09/24/21 Pre-Operative Diagnosis: IAL Post-Operative Diagnosis: same Surgery / Procedure Performed: Spontaneous Vaginal Delivery Type of Anesthesia: Epidural Special Medications: none Estimated Blood Loss: 600 Fluids Replaced: crystalloid Findings Description of Procedure: Patient began pushing and delivered the head in the RYAN presentation. The head was delivered atraumatically . The anterior and posterior shoulders delivered without complication followed by the rest of the and the was placed on the maternal abdomen. Delayed cord clamping was employed for approximately 60 seconds. Cord was clamped and cut and gentle traction was applied to the cord and the placenta delivered spontaneously immediately following it was noted to be intact with three-vessel cord. The perineum and vagina were inspected and noted to have a secondd egree laceration repaired in the usual fashion, significant swelling noted with increased blood loss, but repaired. EBL was 600. Patient and tolerated delivery well. Presentation: RYAN Amniotic Membrane Rupture Type: Artificial Amniotic Fluid Description: Clear Placental Delivery Description: Spontaneous Placenta Disposition: [facility] Cord Vessel Description: 3 Vessels Cord Entanglement: None Delayed Cord Clamping: Yes Post Vaginal Delivery Medications Given After Delivery: IV Pitocin Episiotomy Description: None Laceration: None Complication Complications: None Procedures Urinary/Genital [id number]: [id number] Vaginal Delivery [facility]
--- NOTE | 2021-09-24 19:30 | PCM.DC ---
Discharge Instructions Diet Discharge Diet: No restrictions Activity Discharge Activity: Return to Normal Activity, May Not Drive (while taking narcotic pain medications.) and May Shower May resume sexual activity in: 4-6 weeks Dressing / Incision Call your doctor if your incision/area has: Continuous Slow Oozing, Sudden Increased Bleeding, Increased Pain/ Swelling, Increased Redness and Foul Smelling Discharge Follow Up Care Please Follow Up With: Chloe Reynoso MD When: Call [phone] to make an appointment with your doctor in 6 weeks. If you had elevated blood pressure or 4th degree laceration, you will need to be seen in 2 weeks. Test Results: Test results from this visit will be discussed in further detail at your follow-up appointment, if applicable. Discharge Plan Admission Admit Date/Time: 09/24/21 07:45 Attending Provider: Chloe Reynoso Primary Care Provider: José Manuel Kern Discharge Orders/Prescriptions Referrals / Follow Up: José Manuel Kern MD [Primary Care Provider] - Disposition Disposition (needs filled in before D/C Order can be placed): Home, Self Care
[2021-09-24] MEDS: Naproxen 500 MG Tablet PO (20:52)
--- NOTE | 2021-09-24 20:58 | PLAC_PTH ---
PATIENT: DONTE ST LOC: WP U#:[id number] AGE/SX: 26/F ROOM: WP011 RE09/24/[address]: Dr. Chloe Reynoso MD : 1995 BED: 1 DIS: 09/26/2021 SPEC #: [id number] RECD: 09/25/21 09:37 STATUS: JEFFREY PIERCE #: [id number] EVELYN: 09/24/21 20:[address]: Chloe Reynoso DEPT: SURGICAL PATHOLOGY RECD BY: Nereyda Riggs ENTERED: 09/25/21 09:38 SP TYPE: PLACENTA OTHR DR: Dr. José Manuel Kern MD Tissues: Placenta, NOS Procedures: Surgery Specimen Level V HEADER OPERATION: Vaginal delivery PRE-OP DIAGNOSIS: Elevated FHR TISSUE SUBMITTED: Placenta MICROSCOPIC DIAGNOSIS Scruggs placenta (482 gm): Umbilical cord ? trivascular with no evidence of inflammation. Placental membranes ? occasional macrophages suggestive of meconium staining. Placental disc ? mild Claritza-Draron change and mildly increased intraparenchymal microcalcifications and fibrin plaques. AM:fredi 09/27/2021 MICROSCOPIC DESCRIPTION Slides are reviewed. GROSS DESCRIPTION SPECIMEN: PLACENTA / CLINICAL INFORMATION: A. Weight: 3.175 kg B. Gestational Age: 40 weeks C. Sex: Female PLACENTAL WEIGHT (POST FIXATION): 482 gm PLACENTAL DIMENSIONS: 17 x 16 x 3 cm PLACENTAL SHAPE: Usual ovoid PLACENTAL WEIGHT FOR GESTATIONAL AGE: Within 10-99th percentile MEMBRANES - Present A. Insertion: Marginal B. Site of rupture from edge: At edge of placental disc C. Color of membrane: Contreras-chavez D. Abnormalities: None UMBILICAL CORD - Present A. Color: Contreras-chavez B. Insertion: Slightly eccentric C. Length: 28 cm D. Diameter: 1.5 cm E. Number of vessels: Three F. Abnormalities: None PLACENTAL DISC - Present A. Color of surface: Contreras-chavez B. surface abnormalities: None C. Maternal cotyledons: Intact with minimal tears D. Attached retro placental clot: No clot E. Cut surface: Dark red and spongy F. Lesions: None G. Separate clot: Absent SECTIONS SUBMITTED: 1. Umbilical cord ( end notched) 2. Umbilical cord, placental end 3. Membrane roll 4. Placental disc, and maternal surfaces 5. Placental disc, and maternal surfaces 6. Placental disc, and maternal surfaces AM:fredi 09/26/2021 TC:5 CPT: 11902
[2021-09-24] MEDS: 0.9% Saline Lock 10 ML Syringe IV (21:35)
[2021-09-24 22:15] LABS: Pathology Specimen OB SEE PATHOLOGY REPORT
[2021-09-25] VITALS (8 sets, daily range): BP systolic 120–133; BP diastolic 63–83; PULSE 90–100; RESP 16–18; TEMP 36.5–37.1; O2SAT 97–99
[2021-09-25] MEDS: Acetaminophen 500 MG Tablet 1000 MG PO (00:24)
[2021-09-25] MEDS: Naproxen 500 MG Tablet PO ×2 (06:33→20:35)
--- NOTE | 2021-09-25 10:39 | PCM.PN.OB ---
Subjective Subjective Patient doing well without complaints. Tolerating PO. Ambulating and voiding without difficulty. feeding well. Denies chest pain, shortness of breath, calf pain/swelling, fevers, chills, lightheadedness. Objective Data Objective Data Vital Signs: Vital Signs Temp Pulse Resp BP Pulse Ox 97.7 F L 93 18 126/73 H 99 09/25/21 08:52 09/25/21 08:52 09/25/21 08:52 09/25/21 08:52 09/25/21 08:52 Oxygen Delivery Method Room Air Weight: 176 lb Body Mass Index (BMI) 30.2 Intake & Output: Intake and Output for Last 24 Hours 09/23/21 09/24/21 09/25/21 23:59 23:59 23:59 Intake Total 4176.67 / 4176.67 Output Total 600 / 600 800 / 800 Balance 3576.67 / 3576.67 -800 / -800 Lab / Micro Data Result Diagrams: 09/24/21 07:25 Labs: Laboratory Results - last 24 hr 09/24/21 10:50: COVID-19 ([place]) Detected Micro: Microbiology 09/24/21 07:20 Nasal Secretion SARS-CoV-2 Antigen (Rapid) - Final SARS-CoV-2 (COVID 19) ROS Constitutional Constitutional: Reports systems reviewed and no addt'l complaints, except as documented Cardiovascular Cardiovascular: Reports systems reviewed and no addt'l complaints, except as documented Respiratory/Chest Respiratory/Chest: Reports systems reviewed and no addt'l complaints, except as documented Gastrointestinal Gastrointestinal: Reports systems reviewed and no addt'l complaints, except as documented Physical Exam Const alert, oriented x3 and no apparent distress HEENT Head and Scalp: atraumatic Resp normal respiratory effort GI soft to palpation and non-tender Bimanual Exam - Vag & Uterus: uterus non-tender Uterus Palpation: uterus fundus firm (below Umbilicus) Assessment & Plan (1) COVID-19 affecting , antepartum: COMMENT: pos at delivery, asymptomatic (2) Vaginal delivery: COMMENT: IAL covid SM girl Maisyn PLAN: s/p PPD # 1 1. routine post delivery care 2. breast feeding- support given 3. rh positive 4. rubella immune contact precautions for covid
[2021-09-26 01:06] VITALS: BP 137/84; PULSE 100; RESP 16; TEMP 36.6
[2021-09-26 01:07] VITALS: BP 137/84; PULSE 100
--- NOTE | 2021-09-26 07:45 | PCM.PN.OB ---
Subjective Subjective Patient doing well without complaints. Tolerating PO. Ambulating and voiding without difficulty. Feeding well. Nipple discomfort noted. Denies chest pain, shortness of breath, calf pain/swelling, fevers, chills, lightheadedness. Objective Data Objective Data Vital Signs: Vital Signs Temp Pulse Resp BP Pulse Ox 97.8 F 100 16 137/84 H 99 09/26/21 01:06 09/26/21 01:07 09/26/21 01:06 09/26/21 01:07 09/25/21 08:52 Oxygen Delivery Method Room Air Weight: 176 lb Body Mass Index (BMI) 30.2 Intake & Output: Intake and Output for Last 24 Hours 09/24/21 09/25/21 09/26/21 23:59 23:59 23:59 Intake Total 4176.67 / 4176.67 Output Total 600 / 600 800 / 800 Balance 3576.67 / 3576.67 -800 / -800 Lab / Micro Data Result Diagrams: 09/24/21 07:25 Micro: Microbiology 09/24/21 07:20 Nasal Secretion SARS-CoV-2 Antigen (Rapid) - Final SARS-CoV-2 (COVID 19) Physical Exam Const oriented x3 General Appearance: cooperative Exam Limitations: no limitations HEENT normocephalic Eyes General Eye: normal appearance of both eyes Neck full ROM General: normal visual inspection Resp normal respiratory effort Effort and Inspection: able to speak in complete sentences Psych mental status grossly normal Appearance: grossly normal Attitude: calm and engaged Activity / Motor Behavior: appropriate eye contact Speech: normal speech Mood & Affect: euthymic mood Thought Process: normal thought process Thought Content: normal thought content Judgement: judgement good Assessment & Plan (1) Vaginal delivery: COMMENT: IAL covid SM girl Maisyn (2) COVID-19 affecting , antepartum: COMMENT: pos at delivery, asymptomatic PLAN: s/p PPD # 2 1. routine post delivery care 2. breast feeding- support given 3. rh positive 4. rubella immune 5. nipple cream ordered. 6. home today
[2021-09-26 08:06] VITALS: BP 126/77; PULSE 82; RESP 16; TEMP 36.9
[2021-09-26 15:24] VITALS: BP 131/74; PULSE 102; RESP 16; TEMP 36.5
[2021-09-26 15:25] VITALS: BP 131/74; PULSE 102
== END 2021-09-26 16:00 | disposition home or self-care (01) | DRG 807 ==
LOC: WPOUT 07:49 → WP 07:49
PROVIDERS: Admitting Provider Obstetrics & Gynecology; PCP Family Medicine; Referring Provider Obstetrics & Gynecology; Visit Provider Obstetrics & Gynecology
DX: O99.814 Abnormal glucose complicating childbirth (principal); Z37.0 Single live birth; O70.1 Second degree perineal laceration during delivery; Z3A.39 39 weeks gestation of pregnancy; Z86.16 Personal history of COVID-19
CPT/HCPCS: 59025; 59050; 85025; 86850; 86900; 86901; 87426; 87635; 88307; 99218; J7120; A4216; G0378; J2405; U0003; U0005

== ENCOUNTER → 2023-03-20 | Outpatient (CLI) | payer BC, SELFPAY ==
[2023-03-20 15:40] LABS: NATERA MAILED SPECIMEN
== END | disposition home or self-care (01) ==
PROVIDERS: PCP Family Medicine; Referring Provider Obstetrics & Gynecology; Visit Provider Obstetrics & Gynecology
DX: Z34.90 Encounter for supervision of normal pregnancy, unspecified, unspecified trimester (principal)
CPT/HCPCS: 36415; 87086; 87088

== ENCOUNTER → 2023-03-25 | Outpatient (CLI) | payer BC, SELFPAY ==
--- NOTE | 2023-03-25 15:57 | US_ITS ---
INDICATION: dating EXAMINATION: Ultrasound US OB Less Than 14 Weeks TECHNIQUE: Transabdominal pelvic ultrasound was performed. Grayscale, spectral waveform, and color flow Doppler evaluation of the adnexa. COMPARISON: LMP: [Unknown Beta-hCG: Unknown FINDINGS: UTERUS: 15.2 x 10.3 x 5.9 cm. RIGHT OVARY: 2.7 x 2.8 x 1.5 cm. Normal. LEFT OVARY: 2.4 x 2.1 x 0.9 cm. Normal. FREE FLUID: None. INTRAUTERINE GESTATIONAL SAC(s) (size/shape): Single. 5.7 cm. YOLK SAC: 5 mm POLE: Identified CRL 3.5 cm. ESTIMATED GESTATION AGE: 10 weeks 1 day. HEART MOTION: 162 bpm. PLACENTA: Posterior located with a 1 cm cystic area. SUBCHORIONIC HEMORRHAGE: None. AMNIOTIC FLUID: Qualitatively normal. US/Init OB < 14Wks US IMPRESSION: Single live intrauterine . Estimated gestational age is 10 weeks 1 day. Electronically Signed: Avelino Baca DO at 17:52 EDT ,
== END | disposition home or self-care (01) ==
PROVIDERS: PCP Family Medicine; Referring Provider Obstetrics & Gynecology; Visit Provider Obstetrics & Gynecology
DX: Z34.90 Encounter for supervision of normal pregnancy, unspecified, unspecified trimester (principal); Z3A.00 Weeks of gestation of pregnancy not specified
CPT/HCPCS: 76801

== ENCOUNTER → 2023-04-14 | Outpatient (CLI) | payer BC, SELFPAY | END | disposition home or self-care (01) | LOC: LABSPEC 13:44 | PROVIDERS: PCP Family Medicine; Referring Provider Registered Nurse; Visit Provider Registered Nurse | DX: Z34.90 Encounter for supervision of normal pregnancy, unspecified, unspecified trimester (principal) | CPT/HCPCS: 87591 ==

== ENCOUNTER → 2023-04-22 | Outpatient (CLI) | payer BC, SELFPAY ==
[2023-04-22 15:11] LABS: Absolute Lymphocyte Count 3.29 X10^3/uL (0.83-4.51); Absolute Neutrophil Count 7.5 X10^3/uL (2.0-7.7); Basophil# 0.03 X10^3/uL; Basophil% 0.3 % (0-1); Eosinophil# 0.02 X10^3/uL; Eosinophils% 0.2 % (0-5); Hematocrit 38.8 % (37-47); Hemoglobin 13.1 g/dL (12.0-15.0); Lymphocyte # 3.29 X10^3/ul (0.83-4.51); Lymphocyte % 28.7 % (19-41); Mean Corp Hgb Conc 33.8 g/dL (32-36); Mean Corpuscular Volume 85.8 fL (81-99); Mean Platelet Vol. 10.4 fl (6.2-12.0); Monocyte# 0.58 X10^3/uL; Monocyte% 5.1 % (0-10); NRBC Flagged by Analyzer 0 % (0-5); Neutrophil # 7.52 X10^3/uL (2.7-7.7); Neutrophil % 65.4 % (47-70); Platelet Count 286 K/mm3 (150-450); RBC Distribution Width CV 13.3 % (11.6-14.6); RBC Distribution Width SD 41.5 fl (35.1-43.9); Red Blood Count 4.52 M/mm3 (4.2-5.4); White Blood Count 11.5 K/mm3 (4.4-11.0)
[2023-04-22 17:57] LABS: HIV - WCH Non-Reactive (Nonreactive); Hepatitis B Surface Antigen Non-Reactive (Nonreactive); Hepatitis C Antibody Non-Reactive (Nonreactive); Rubella IgG Reactive (Nonreactive); Syphilis Antibodies Non-reactive
== END | disposition home or self-care (01) ==
LOC: LAB 14:34
PROVIDERS: PCP Family Medicine; Referring Provider Obstetrics & Gynecology; Visit Provider Obstetrics & Gynecology
DX: Z34.90 Encounter for supervision of normal pregnancy, unspecified, unspecified trimester (principal)
CPT/HCPCS: 36415; 85025; 86703; 86762; 86780; 86803; 86850; 86900; 86901; 87340

== ENCOUNTER → 2023-06-09 | Outpatient (CLI) | payer BC, SELFPAY ==
[2023-06-11 22:06] LABS: Chlamydia By Nucleic Acid AMP Negative (Negative); Gonococcus By Nucleic Acid AMP Negative (Negative)
== END | disposition home or self-care (01) ==
LOC: LABSPEC 13:28
PROVIDERS: PCP Family Medicine; Referring Provider Registered Nurse; Visit Provider Registered Nurse
DX: O09.90 Supervision of high risk pregnancy, unspecified, unspecified trimester (principal); Z3A.00 Weeks of gestation of pregnancy not specified
CPT/HCPCS: 87491; 87591

== ENCOUNTER → 2023-06-18 | Outpatient (CLI) | payer BC, SELFPAY ==
--- NOTE | 2023-06-18 18:20 | US_ITS ---
STUDY: RENAL ULTRASOUND - COMPLETE REASON FOR EXAM: Female, 27 years old. GROSS HEMATURIA- RT FLANK PAIN TECHNIQUE: Ultrasound evaluation of the kidneys was performed with real-time and static ku-scale imaging. COMPARISON: None. FINDINGS: RIGHT KIDNEY: Normal location of the right kidney, which is normal in size. The right kidney measures 11.1 cm. There is a normal cortex of the right kidney. The renal cortex measures 1.2 cm. There is no right renal mass or cyst. 2 mm echogenic focus the midsection right kidney may represent nonobstructing stone. 6 mm echogenic focus lower pole right kidney may represent a nonobstructing stone. There is an extra-renal pelvis of the right kidney. There is no distention of the renal calyces. DISTAL RIGHT URETER: There is non-visualization of the distal right ureter. There is no demonstrated right ureterovesical junction calculus. There is a visualized right ureteral jet. LEFT KIDNEY: Normal location of the left kidney, which is normal in size. The left kidney measures 11.6 cm. There is a normal cortex of the left kidney. The renal cortex measures 1.3 cm. There is no left renal mass or cyst. There are no left renal calculi. There is no left hydronephrosis. DISTAL LEFT URETER: There is non-visualization of the distal left ureter. There is no demonstrated left ureterovesical junction calculus. There is a visualized left ureteral jet. BLADDER: The distended urinary bladder has a volume of 22 ml. The empty urinary bladder has a volume of 1 ml. There is a normal wall thickness of the distended urinary bladder. There is no demonstrated mass within the urinary bladder. There are no demonstrated bladder calculi. US/Kidney and Bladder IMPRESSION: Mild right hydronephrosis. Possibly nonobstructing right renal stones Electronically Signed: Jian Villa MD at 19:35 EDT ,
== END | disposition home or self-care (01) ==
PROVIDERS: PCP Family Medicine; Referring Provider Obstetrics & Gynecology; Visit Provider Obstetrics & Gynecology
DX: R10.9 Unspecified abdominal pain (principal)
CPT/HCPCS: 76770; 87086

== ENCOUNTER 2023-06-25 21:30 | Outpatient (CLI) | payer BC, SELFPAY ==
[2023-06-25] VITALS (29 sets, daily range): BP systolic 115; BP diastolic 69; PULSE 89–118; TEMP 36.9; O2SAT 80–99; BMI 28.8
[2023-06-25 22:08] LABS: Color, Urine Yellow (Yellow); Glucose, Dipstick Normal (Normal); Ketone-Dipstick Negative (Negative); Leukocyte Esterase-Dipstick 25 /ul (Negative); Nitrite-Dipstick Negative (Negative); Occult Blood-Urine 250 /ul (Negative); Protein-Dipstick 30 mg/dl (Negative); Urine Bilirubin Dipstick Negative (Negative); Urine Clarity Cloudy (Clear); Urine Urobilinogen Normal (Normal); Urine pH 6.5 (5.0 - 8.0)
[2023-06-25] MEDS: Ondansetron 4 MG/2 ML Vial IV (22:32)
[2023-06-25] MEDS: Lactated Ringers 1,000 ML 999 ML IV ×2 (22:35→23:34)
[2023-06-25] MEDS: Morphine 4 MG/ML Syringe IV (22:36)
[2023-06-26] VITALS (16 sets, daily range): BP systolic 112–123; BP diastolic 66–71; PULSE 88–119; TEMP 36.4–37.1; O2SAT 89–98
[2023-06-26 00:18] LABS: ROM Internal Control Test YES-OK TO RESULT pt. (Internal QC); ROM Patient Test Negative (Negative); Record Kit Lot#, ROM+ K1409
[2023-06-26] MEDS: Lactated Ringers 1,000 ML 150 ML IV ×2 (01:14→07:59)
[2023-06-26] MEDS: Ondansetron 4 MG/2 ML Vial IV ×2 (02:37→06:44)
[2023-06-26] MEDS: Morphine 4 MG/ML Syringe IV ×2 (02:39→06:47)
[2023-06-26] MEDS: Acetaminophen 500 MG Tablet 1000 MG PO (08:03)
[2023-06-26 08:12] LABS: Absolute Lymphocyte Count 2.24 X10^3/uL (0.83-4.51); Absolute Neutrophil Count 12.5 X10^3/uL (2.0-7.7); Basophil# 0.02 X10^3/uL; Basophil% 0.1 % (0-1); Hematocrit 30.7 % (37-47); Hemoglobin 9.8 g/dL (12.0-15.0); Lymphocyte # 2.24 X10^3/ul (0.83-4.51); Lymphocyte % 14.3 % (19-41); Mean Corp Hgb Conc 31.9 g/dL (32-36); Mean Corpuscular Hgb 27.8 pg (27.0-32.0); Mean Platelet Vol. 10.8 fl (6.2-12.0); Monocyte# 0.86 X10^3/uL; Monocyte% 5.5 % (0-10); NRBC Flagged by Analyzer 0 % (0-5); Neutrophil # 12.47 X10^3/uL (2.7-7.7); Neutrophil % 79.5 % (47-70); Platelet Count 244 K/mm3 (150-450); RBC Distribution Width CV 12.2 % (11.6-14.6); RBC Distribution Width SD 38.9 fl (35.1-43.9); Red Blood Count 3.53 M/mm3 (4.2-5.4); White Blood Count 15.7 K/mm3 (4.4-11.0)
[2023-06-26 08:25] LABS: Anion Gap 6 (5-15); BUN 7 mg/dL (7-18); BUN/Creat Ratio 10.4 RATIO (10-20); Chloride 110 mmol/L (98-107); Creatinine, Serum 0.68 mg/dL (0.55-1.02); EST Glomerular Filtration Rate 111 mL/min (>60); Est Glom Filt Rate - Afr Amer 134 mL/min (>60); Estimated Creatinine Clearance 107.31 ml/min; Glucose 102 mg/dL (74-106); Potassium 3.5 mmol/L (3.5-5.1); Sodium Level 139 mmol/L (136-145)
--- NOTE | 2023-06-26 08:39 | US_ITS ---
STUDY: RENAL ULTRASOUND - COMPLETE REASON FOR EXAM: Female, 27 years old. kidney stones? Right flank pain. TECHNIQUE: Ultrasound evaluation of the kidneys was performed with real-time and static ku-scale imaging. COMPARISON: Comparison is made with prior study dated June 18, 2023. FINDINGS: RIGHT KIDNEY: Normal location of the right kidney, which is normal in size. The right kidney measures 13.1 cm x 5.2 cm x 5 cm. There is a normal cortex of the right kidney. The renal cortex measures 1.4 cm. There is no right renal mass or cyst. There are no right renal calculi. Yrer-jh-iisemsrb right hydronephrosis. DISTAL RIGHT URETER: There is non-visualization of the distal right ureter. There is no demonstrated right ureterovesical junction calculus. There is a visualized right ureteral jet. LEFT KIDNEY: Normal location of the left kidney, which is normal in size. The left kidney measures 11.6 cm x 5.3 cm x 5.8 cm. There is a normal cortex of the left kidney. The renal cortex measures 1.6 cm. There is no left renal mass or cyst. There are no left renal calculi. There is no left hydronephrosis. DISTAL LEFT URETER: There is non-visualization of the distal left ureter. There is no demonstrated left ureterovesical junction calculus. There is a visualized left ureteral jet. BLADDER: The distended urinary bladder has a volume of 160 ml. Mild degree of bladder wall thickening. There is no demonstrated mass within the urinary bladder. There are no demonstrated bladder calculi. US/Kidney and Bladder IMPRESSION: Kydb-me-bumpnwtb degree of right hydronephrosis. Mild bladder wall thickening. Electronically Signed: Roscoe Salmeron MD at 12:29 EDT ,
[2023-06-26] MEDS: oxyCODONE 5 MG Tablet PO (10:42)
--- NOTE | 2023-06-27 10:04 | OB.TRI.HP_ITS ---
HPI - General General Date of Admission: 06/26/[address], is a 27 F who presents with right flank pain an hematuria. she has been seen by Dr Sol and renal ultrasound didn't show any kidney stones, howevere there is a high suspicion due to pain. she received IVFs and pain medicine overnight and is feeling better. she denies any vaginal bleeding or abnormal discharge. Maternal Data Information MARBIN Calculator Estimated Delivery Date Method Current WG Current Estimate 10/15/23 LMP (Certain) 24w 2d Other Estimates 10/20/23 Ultrasound #1 23w 4d PFSH PFSH Medical History Abnormal glucose affecting depression Home Medications prochlorperazine maleate 5 mg tablet (Compazine) 5 mg PO TID PRN nausea and vomiting #30 tabs 02/24/23 [Rx Last Taken Unknown] vitamins no.85-iron 10 mg-folate no.1 1 mg-dha 200 mg capsule (Prenate Pixie) 1 cap PO DAILY #30 caps 03/20/23 [Rx Last Taken 06/25/23 09:00] acetaminophen 500 mg tablet (Tylenol Extra Strength) 1,000 mg PO Q6H PRN pain 06/25/23 [History Last Taken 06/25/23] oxycodone 5 mg tablet 5 mg PO Q4H PRN pain 7 days #28 tabs 06/26/23 [Rx Last Taken Unknown] Allergy/AdvReac Type Severity Reaction Status Date / Time nitrofurantoin Allergy Intermediate Hives Verified 06/25/23 21:33 amoxicillin Allergy Mild Rash Verified 06/25/23 21:33 clindamycin Allergy Mild unknown Verified 06/25/23 21:33 Social History adopted: No household members: spouse and children number of children: 1 current occupational status: employed current occupation: [employer] pets and animals: Yes pets and animals: dog(s) history of recent travel: Yes ([place]) out of state: Yes out of country: No sexually active: Yes Smoking Status: Never smoker alcohol intake: current alcohol intake frequency: a few times a month details: none with substance use type: does not use well-balanced diet: daily or most days caffeine: Yes Type: carbonated beverages Number of servings: 1 eating out: 4 or more times/week during the past year weight has: remained stable what type of physical activity do you participate in: walking frequency: 5-6 times per week duration: 30-45 minutes/day jordyn/religious: Faith seatbelt use: always do you feel safe at home: Yes 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 Date Name GA/Weeks Outcome Route Bth Weight Infant Gen Labor Lgth Anesthesia Del Locatn Provider FOB 09/24/21 Ronak 40 live - full term Female [facility] Edgardo Delivery Date: 09/24/21 Last Updated by: Nieves Aparicio IOL Covid Visit Details Expected Delivery Route/Plan Labor Preferences- CB/BF classes: [] labor support person: [] labor intervention preferences: [] pain management options preferred: [] cut cord/dad catch: [] : [] PP control planned: [] discussed possible routes of delivery and associated risks: [] special requests: [] Plans Covid status: discussed Flu vaccine: [] Tdap vaccine: [] Rhogam: [] LARC form signed: [] Problem list reviewed and updated with the most current plan of care details and appropriate orders placed. Relevant counseling for the gestational age provided. Continue routine care and follow up unless otherwise noted in visit notes/problem list details OB Flowsheet Initial Weight: Not Recorded Date -?-?-?-?-?-?-?-?-?-?-?-?- EGA Weight BP Urine Prot -?-?-?-?-?-?-?-?-?-?-?-?- Glucose FHR FuHt Pres Dilation -?-?-?-?-?-?-?-?-?-?-?-?- Effaced St Visit Note 03/20/23 -?-?-?-?-?-?-?-?-?-?-?-?- 10w 1d 154 lb 6 oz 116/77 -?-?-?-?-?-?-?-?-?-?-?-?- -?-?-?-?-?-?-?-?-?-?-?-?- JV- handheld ult rasound shows CRL of 29.3 (9weeks 5 days) has formal ultrasound scheduled for friday. wants nIPT. JV- handheld ultrasound show s heart tones and CRL of 29.3 (9weeks 5 days) has formal ultrasound scheduled for friday. wants nIPT. 04/14/23 -?-?-?-?-?-?-?-?-?-?-?-?- 13w 5d 154 lb 114/75 Negative -?-?-?-?-?-?-?-?-?-?-?-?- Negative 150 -?-?-?-?-?-?-?-?-?-?-?-?- LC- no vb/crampi ng. discussed and declines AFP. mfm us ordered. to obtained nob labs today. normal nipt.GIRL! 05/12/23 -?-?-?-?-?-?-?-?-?-?-?-?- 17w 5d 160 lb 4 oz 124/76 Nega tive -?-?-?-?-?-?-?-?-?-?-?-?- Negative 150 -?-?-?-?-?-?-?-?-?-?-?-?- SM- no vb lof go od fm no regular ctx 06/09/23 -?-?-?-?-?-?-?-?-?-?-?-?- 21w 5d 168 lb 104/68 Negative -?-?-?-?-?-?-?-?-?-?-?-?- Negative 155 -?-?-?-?-?-?-?-?-?-?-?-?- LC- no vb/crampi ng. feeling flutters. low lying placenta, pelvic rest advised. LC- no vb/cramping. feeling flutters. low lying placenta, pelvic rest advised. gc/ct obtained today. 06/18/23 -?-?-?-?-?-?-?-?-?-?-?-?- 23w 0d 169 lb 110/70 Negative -?-?-?-?-?-?-?-?-?-?-?-?- Negative 0 -?-?-?-?-?-?-?-?-?-?-?-?- JV- no lof, vagi nal bleeding, or dec fm. pt presents for right flank pain and large blood on dip. cx closed, ordering renal ultrasound. urine sent for culture. ROS Constitutional Constitutional: Reports systems reviewed and no addt'l complaints, except as documented Gastrointestinal Gastrointestinal: Reports as per HPI Physical Exam Const alert, oriented x3 and no apparent distress HEENT Head and Scalp: normocephalic and atraumatic Neck full ROM and no lymphadenopathy Chest inspection of chest normal Resp normal respiratory effort GI GI Narrative: gravid, abdomen nontender, AGA Narrative: right lower cloth finishing range back tender to percussion, not directly over kidney NST FHR Rate Baby A Baseline: 140 Variability:: Moderate Decelerations:: None Uterine Activity:: no regular Assessment & Plan (1) Kidney stone complicating : COMMENT: not seen on renal ultrasound but high suspicion due to presentation. della Sol. dc home with oxy, recommend oral fluid and tylenol. reviewed precautions (2) Flank pain: COMMENT: s/p triage eval with IVFs repeat renal US shows mild-moderate hydronephrosis. urine culture sent, afebrile. discussed with oscar and radiologist, plan hydration and oral pain control, would order CT only if febrile or signs of increasing pain PLAN: Plan monitored overnight with IV and then oral pain control, IVFs. repeat renal ultrasound done and discussed findings with Dr Shetty and Dr Salmeron. suspect stone is passing, reviewed precautions for needing incresaed intervention or ct scan, reocmmend supportive care at this time. urine culture sent. no antibiotics recommended at this time per urology. Charges/Coding Multi Select Codes Visit Charges Office Visit/Consults: 16673 OV L3 Est
== END 2023-06-26 13:39 | disposition home or self-care (01) ==
LOC: WPOUT 21:33 → WP 21:34
PROVIDERS: Obstetrics & Gynecology; PCP Family Medicine; Referring Provider Obstetrics & Gynecology; Visit Provider Obstetrics & Gynecology
DX: O99.891 Other specified diseases and conditions complicating pregnancy (principal); N20.0 Calculus of kidney; R10.9 Unspecified abdominal pain; Z3A.24 24 weeks gestation of pregnancy
CPT/HCPCS: 96375 ×2; 96365; 96366; 59050; 76770; 80048; 81002; 84112; 85025; 87086; 87088; 99221; J7120; G0378; J2405

== ENCOUNTER 2023-06-27 10:42 | Emergency (ER) | payer BC, SELFPAY ==
[2023-06-27 10:48] VITALS: BP 128/79; PULSE 102; RESP 14; TEMP 36.6; O2SAT 97; BMI 28.3
--- NOTE | 2023-06-27 10:55 | CT_ITS ---
STUDY: CT ABDOMEN AND PELVIS WITHOUT CONTRAST REASON FOR EXAM: Female, 27 years old. Kidney stone with . The patient was shielded appropriately. RADIATION DOSAGE (If Supplied By Facility): CTDIvol = ( 7.56 ) mGy, DLP = ( 398.30 ) mGycm TECHNIQUE: Transaxial images were obtained from the dome of the diaphragm to the symphysis pubis without oral contrast, and without intravenous contrast. Sagittal and coronal images were reconstructed. Individualized dose optimization techniques were used for this CT. COMPARISON: None. FINDINGS: The visualized lung bases are unremarkable. The visualized portions of the heart are within normal limits. Normal liver. Mildly distended gallbladder. Normal spleen. Normal pancreas. Normal bilateral adrenal glands. Moderate degree of right hydronephrosis and right hydroureter due to a 5.5 mm calculus in the midportion of the right ureter. No obstructive calculus is seen. Normal left kidney. Normal visualized stomach. Normal small intestine. Normal colon. The appendix is visualized and appears normal. Normal abdominal aorta. Normal inferior vena cava. Normal retroperitoneum. Normal urinary bladder. Intrauterine gestation is seen. There is a small umbilical hernia containing fat. Normal osseous structures. CT/Abdomen/Pelvis without Cont IMPRESSION: Moderate degree of right hydronephrosis and right hydroureter due to a 5.5 mm calculus in the midportion of the right ureter. Intrauterine gestation is seen.. Electronically Signed: Roscoe Salmeron MD at 12:41 EDT ,
--- NOTE | 2023-06-27 11:04 | EDS_ITS ---
HPI History of Present Illness Chief Complaint: Flank Pain Narrative Narrative: 27-year-old female, G2, P1 at approximately 24 weeks gestation presents at the direction of her HEEL NAIL RASPER for right-sided flank pain. She has been treated as a kidney stone complicating for the last week. She is been having right flank pain. She states that 3 days ago, she was overnight on labor and delivery for nausea, vomiting, and right flank pain. She developed a fever. She states that she initially saw Dr. Edna Moss and had an ultrasound that showed nonobstructing renal stones. She had another ultrasound for her right flank pain which she states did not show anything. She has vomited 3 times without any blood in her emesis over the last 24 hours. She took Compazine prior to arrival which controlled her symptoms. Her HEEL NAIL RASPER, Dr. Matilde Aburto, called to the emergency department stating that the patient needs CT imaging for her right flank pain along with a CBC and CMP. Patient denies any exacerbating or alleviating factors. No vaginal bleeding. [facility] Medical History Abnormal glucose affecting depression Home Medications prochlorperazine maleate 5 mg tablet (Compazine) 5 mg PO TID PRN nausea and vomiting #30 tabs 02/24/23 [Rx Last Taken Unknown] vitamins no.85-iron 10 mg-folate no.1 1 mg-dha 200 mg capsule (Prenate Pixie) 1 cap PO DAILY #30 caps 03/20/23 [Rx Last Taken 06/25/23 09:00] acetaminophen 500 mg tablet (Tylenol Extra Strength) 1,000 mg PO Q6H PRN pain 06/25/23 [History Last Taken 06/25/23] oxycodone 5 mg tablet 5 mg PO Q4H PRN pain 7 days #28 tabs 06/26/23 [Rx Last Taken Unknown] Allergy/AdvReac Type Severity Reaction Status Date / Time nitrofurantoin Allergy Intermediate Hives Verified 06/27/23 10:48 amoxicillin Allergy Mild Rash Verified 06/27/23 10:48 clindamycin Allergy Mild unknown Verified 06/27/23 10:48 Social History adopted: No household members: spouse and children number of children: 1 current occupational status: employed current occupation: [employer] pets and animals: Yes pets and animals: dog(s) history of recent travel: Yes ([place]) out of state: Yes out of country: No sexually active: Yes Smoking Status: Never smoker alcohol intake: current alcohol intake frequency: a few times a month details: none with substance use type: does not use well-balanced diet: daily or most days caffeine: Yes Type: carbonated beverages Number of servings: 1 eating out: 4 or more times/week during the past year weight has: remained stable what type of physical activity do you participate in: walking frequency: 5-6 times per week duration: 30-45 minutes/day jordyn/synagogue: [employer] seatbelt use: always do you feel safe at home: Yes 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 HEENT: No sore throat. No neck pain. No loss of vision. No rhinorrhea. Cardiovascular: No chest pain. No palpitations. No pedal edema. Respiratory: No cough, no shortness of breath. Abdominal: No abdominal pain. Positive nausea and vomiting 3 times in the last 24 hours. Genitourinary: No dysuria. No hematuria. Positive right flank pain. Musculoskeletal: No myalgias. No arthralgias. Neurologic: No headaches. No dizziness. No lightheadedness. Skin: No rash. No change in color. Psychiatric: No depression. No anxiety. EXAM Physical Exam Narrative Exam Narrative: Afebrile. Vital signs noted. HEENT: Normocephalic. Atraumatic. PERRL, EOMI. Neck soft and supple. No point tenderness or step off. Cardiovascular: Regular rate and rhythm. No murmurs, rubs, or gallops appreciated. Respiratory: No tachypnea. Lungs clear to auscultation bilaterally. Gastrointestinal: Abdomen soft, nontender, with normoactive bowel sounds. Gravid uterus. No rebound or guarding. Neurological: Awake. Alert. Nonfocal, nonlateralizing. Skin: No rash. Normal color. No pallor. Musculoskeletal: No pedal edema. Full range of motion extremities. Const Vital Signs: 06/27/23 10:48 06/27/23 10:56 Temperature 98 F Temperature Source Temporal Pulse Rate 102 H Respiratory Rate 14 Respiratory Pattern Normal Blood Pressure 128/79 H Blood Pressure Mean 95 Pulse Ox 97 Oxygen Delivery Method Room Air MDM MDM MDM Narrative Medical decision making narrative: Reviewed the patient's prior records. I ordered the CT scan, CBC, and CMP and she will be bolused normal saline. She declined any antiemetics at this time. I discussed with the patient and her any radiation risk with CT scanning, but do feel that is clinically indicated as requested by her HEEL NAIL RASPER. I reviewed her laboratory work from today and she has elevated white count of 15.2 which could possibly be demargination from her nausea and vomiting. Hemoglobin stable at 10.8, platelet count normal at 287. She is slightly hypokalemic at 3.4 but has a BUN normal at 7 and creatinine 0.86. AST is slightly low at 13 as well as ALT low at 9. CT report of the abdomen pelvis without contrast is still pending. She has been unable to produce a urine sample as of yet. However, I received a call from Dr. Matilde Aburto who states that she had the urologist, Dr. Shetty reviewed the CT scan. It was thought that she requires transfer to a tertiary care [facility] because she will require intervention for her obstructing kidney stone/ureteral stone. HEEL NAIL RASPER requested that she be discharged from the emergency department and taken directly to labor and delivery for transfer. Disposition is discharged to labor and delivery in stable condition. History & Record Review Discussion w/independent historian: Patient and Family Additional record(s) reviewed:: Prior ED visit and Prior labs Lab Data Attestation: I reviewed the patient's lab results. Labs: Laboratory Results - last 24 hr 06/27/23 11:07 WBC 15.2 H RBC 3.90 L Hgb 10.8 L Hct 34.5 L MCV 88.5 MCH 27.7 MCHC 31.3 L RDW Std Deviation 40.1 RDW Coeff of Rahel 12.4 Plt Count 287 MPV 10.4 Immature Gran % (Auto) 0.600 Neut % (Auto) 81.7 H Lymph % (Auto) 12.7 L [place] % (Auto) 4.7 Eos % (Auto) 0.0 Baso % (Auto) 0.3 Absolute Neuts (auto) 12.4 H Absolute Lymphs (auto) 1.94 Nucleated RBC % 0 Sodium 140 Potassium 3.4 L Chloride 111 H Carbon Dioxide 23.0 Anion Gap 6 BUN 7 Creatinine 0.86 Estim Creat Clear Calc 84.85 Est GFR (MDRD) Af Amer 101 Est GFR (MDRD) Non-Af 83 BUN/Creatinine Ratio 8.1 L Glucose 94 Calcium 8.2 L Total Bilirubin 0.30 AST 13 L ALT 9 L Alkaline Phosphatase 70 Total Protein 6.1 L Albumin 2.5 L Globulin 3.6 Albumin/Globulin Ratio 0.7 L Discharge Plan Triage Chief Complaint: Flank Pain ED Provider: Frank Guy Dx/Rx/DC Orders Clinical Impression: , Kidney stone complicating Instructions: ED Kidney Stone w/ Colic, ED Established ... Prescriptions: No Action Prenate Pixie 10 mg iron- 1 mg-200 mg capsule 1 cap PO DAILY Qty: 30 12RF acetaminophen [Tylenol Extra Strength] 500 mg tablet 1,000 mg PO Q6H PRN (Reason: pain) prochlorperazine maleate [Compazine] 5 mg tablet 5 mg PO TID PRN (Reason: nausea and vomiting) Qty: 30 2RF oxycodone 5 mg tablet 5 mg PO Q4H PRN (Reason: pain) 7 Days Qty: 28 0RF Primary Care Provider: José Manuel Kern Referrals: José Manuel Kern MD [Primary Care Provider] - Activity Restrictions/Additional Instructions: Report immediately to labor and delivery. Disposition Disposition: Home, Self Care
[2023-06-27 11:15] LABS: Absolute Lymphocyte Count 1.94 X10^3/uL (0.83-4.51); Absolute Neutrophil Count 12.4 X10^3/uL (2.0-7.7); Basophil# 0.05 X10^3/uL; Basophil% 0.3 % (0-1); Hematocrit 34.5 % (37-47); Hemoglobin 10.8 g/dL (12.0-15.0); Lymphocyte # 1.94 X10^3/ul (0.83-4.51); Lymphocyte % 12.7 % (19-41); Mean Corp Hgb Conc 31.3 g/dL (32-36); Mean Corpuscular Hgb 27.7 pg (27.0-32.0); Mean Corpuscular Volume 88.5 fL (81-99); Mean Platelet Vol. 10.4 fl (6.2-12.0); Monocyte# 0.71 X10^3/uL; Monocyte% 4.7 % (0-10); NRBC Flagged by Analyzer 0 % (0-5); Neutrophil # 12.44 X10^3/uL (2.7-7.7); Neutrophil % 81.7 % (47-70); Platelet Count 287 K/mm3 (150-450); RBC Distribution Width CV 12.4 % (11.6-14.6); RBC Distribution Width SD 40.1 fl (35.1-43.9); White Blood Count 15.2 K/mm3 (4.4-11.0)
[2023-06-27] MEDS: 0.9% Normal Saline (1000mL) 1,000 ML 999 ML IV (11:29)
[2023-06-27 11:32] LABS: ALB/GLOB Ratio 0.7 RATIO (0.9-2.4); AST(SGOT) 13 U/L (15-37); Alanine Aminotransfer ALT/SGPT 9 U/L (13-56); Albumin, Serum 2.5 g/dL (3.2-5.0); Alkaline Phosphatase 70 U/L (45-117); Anion Gap 6 (5-15); BUN 7 mg/dL (7-18); BUN/Creat Ratio 8.1 RATIO (10-20); Calcium,Total 8.2 mg/dL (8.5-10.1); Chloride 111 mmol/L (98-107); Creatinine, Serum 0.86 mg/dL (0.55-1.02); EST Glomerular Filtration Rate 83 mL/min (>60); Est Glom Filt Rate - Afr Amer 101 mL/min (>60); Estimated Creatinine Clearance 84.85 ml/min; Globulin 3.6 g/dL (2.2-4.2); Glucose 94 mg/dL (74-106); Potassium 3.4 mmol/L (3.5-5.1); Protein, Total 6.1 g/dL (6.4-8.2); Sodium Level 140 mmol/L (136-145)
--- NOTE | 2023-06-27 12:31 | ED.RN ---
PT GOING TO OB, PER PROVIDER LEAVE IN IV ACCESS.
[2023-06-27 12:40] VITALS: BP 109/77; PULSE 101; RESP 14; O2SAT 97
== END 2023-06-27 12:41 | disposition home or self-care (01) ==
PROVIDERS: Emergency Provider Emergency Medicine; PCP Family Medicine; Visit Provider Emergency Medicine
DX: O99.891 Other specified diseases and conditions complicating pregnancy (principal); N20.0 Calculus of kidney; Z3A.24 24 weeks gestation of pregnancy
CPT/HCPCS: 74176; 80053; 85025; 99284; J7030; A4216

== ENCOUNTER 2023-06-27 12:45 | Outpatient (CLI) | payer BC, SELFPAY ==
[2023-06-27 13:05] VITALS: BP 131/79; PULSE 104; TEMP 37.2; O2SAT 98
[2023-06-27 13:14] VITALS: BMI 28.3
[2023-06-27] MEDS: 0.9% Saline Lock 10 ML Syringe IV (13:30)
[2023-06-27] MEDS: Lactated Ringers 1,000 ML 999 ML IV (13:30)
--- NOTE | 2023-06-27 13:30 | OB.TRI.HP_ITS ---
HPI - General HPI Narrative DONTE ST, is a 27 F who presents with kidney stone- increasing pain, nausea, and on ct imaging 5.5 mm stone seen. Maternal Data Information MARBIN Calculator Estimated Delivery Date Method Current WG Current Estimate 10/15/23 LMP (Certain) 24w 2d Other Estimates 10/20/23 Ultrasound #1 23w 4d PFSH PFSH Medical History Abnormal glucose affecting depression Home Medications prochlorperazine maleate 5 mg tablet (Compazine) 5 mg PO TID PRN nausea and vomiting #30 tabs 02/24/23 [Rx Last Taken 06/27/23 08:00] vitamins no.85-iron 10 mg-folate no.1 1 mg-dha 200 mg capsule (Prenate Pixie) 1 cap PO DAILY #30 caps 03/20/23 [Rx Last Taken 06/26/23 20:00] acetaminophen 500 mg tablet (Tylenol Extra Strength) 1,000 mg PO Q6H PRN pain 06/25/23 [History Last Taken 06/27/23 10:00] oxycodone 5 mg tablet 5 mg PO Q4H PRN pain 7 days #28 tabs 06/26/23 [Rx Last Taken 06/27/23 10:00] Allergy/AdvReac Type Severity Reaction Status Date / Time nitrofurantoin Allergy Intermediate Hives Verified 06/27/23 13:24 amoxicillin Allergy Mild Rash Verified 06/27/23 13:24 clindamycin Allergy Mild unknown Verified 06/27/23 13:24 Social History adopted: No household members: spouse and children number of children: 1 current occupational status: employed current occupation: [employer] pets and animals: Yes pets and animals: dog(s) history of recent travel: Yes ([place]) out of state: Yes out of country: No sexually active: Yes Smoking Status: Never smoker alcohol intake: current alcohol intake frequency: a few times a month details: none with substance use type: does not use well-balanced diet: daily or most days caffeine: Yes Type: carbonated beverages Number of servings: 1 eating out: 4 or more times/week during the past year weight has: remained stable what type of physical activity do you participate in: walking frequency: 5-6 times per week duration: 30-45 minutes/day jordyn/baptism: [employer] seatbelt use: always do you feel safe at home: Yes 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 Date Name GA/Weeks Outcome Route Bth Weight Infant Gen Labor Lgth Anesthesia Del Locatn Provider FOB 09/24/21 Ronak 40 live - full term Female [facility] Edgardo Delivery Date: 09/24/21 Last Updated by: Nieves Aparicio IOL Covid Visit Details Expected Delivery Route/Plan Labor Preferences- CB/BF classes: [] labor support person: [] labor intervention preferences: [] pain management options preferred: [] cut cord/dad catch: [] : [] PP control planned: [] discussed possible routes of delivery and associated risks: [] special requests: [] Plans Covid status: discussed Flu vaccine: [] Tdap vaccine: [] Rhogam: [] LARC form signed: [] Problem list reviewed and updated with the most current plan of care details and appropriate orders placed. Relevant counseling for the gestational age provided. Continue routine care and follow up unless otherwise noted in visit notes/problem list details OB Flowsheet Initial Weight: Not Recorded Date -?-?-?-?-?-?-?-?-?-?-?-?- EGA Weight BP Urine Prot -?-?-?-?-?-?-?-?-?-?-?-?- Glucose FHR FuHt Pres Dilation -?-?-?-?-?-?-?-?-?-?-?-?- Effaced St Visit Note 03/20/23 -?-?-?-?-?-?-?-?-?-?-?-?- 10w 1d 154 lb 6 oz 116/77 -?-?-?-?-?-?-?-?-?-?-?-?- -?-?-?-?-?-?-?-?-?-?-?-?- JV- handheld ult rasound shows CRL of 29.3 (9weeks 5 days) has formal ultrasound scheduled for friday. wants nIPT. JV- handheld ultrasound show s heart tones and CRL of 29.3 (9weeks 5 days) has formal ultrasound scheduled for friday. wants nIPT. 04/14/23 -?-?-?-?-?-?-?-?-?--?-?-?- 13w 5d 154 lb 114/75 Negative -?-?-?-?-?-?-?-?-?-?-?-?- Negative 150 -?-?-?-?-?-?-?-?-?-?-?-?- LC- no vb/crampi ng. discussed and declines AFP. mfm us ordered. to obtained nob labs today. normal nipt.GIRL! 05/12/23 -?-?-?-?-?-?-?-?-?-?-?-?- 17w 5d 160 lb 4 oz 124/76 Nega tive -?-?-?-?-?-?-?-?-?-?-?--?- Negative 150 -?-?-?-?-?-?-?-?-?-?-?-?- SM- no vb lof go od fm no regular ctx 06/09/23 -?-?-?-?-?-?-?-?-?-?-?-?- 21w 5d 168 lb 104/68 Negative -?-?-?-?-?-?-?-?-?-?-?-?- Negative 155 -?-?-?-?-?-?-?-?-?-?-?-?- LC- no vb/crampi ng. feeling flutters. low lying placenta, pelvic rest advised. LC- no vb/cramping. feeling flutters. low lying placenta, pelvic rest advised. gc/ct obtained today. 06/18/23 -?-?-?-?-?-?-?-?-?-?-?-?- 23w 0d 169 lb 110/70 Negative -?-?-?-?-?-?-?-?-?-?-?-?- Negative 0 -?-?-?-?-?-?-?-?-?-?-?-?- JV- no lof, vagi nal bleeding, or dec fm. pt presents for right flank pain and large blood on dip. cx closed, ordering renal ultrasound. urine sent for culture. ROS Constitutional Constitutional: Reports systems reviewed and no addt'l complaints, except as documented Gastrointestinal Gastrointestinal: Reports as per HPI Physical Exam Const alert, oriented x3 and no apparent distress HEENT Head and Scalp: normocephalic and atraumatic Neck full ROM and no lymphadenopathy Chest inspection of chest normal Resp normal respiratory effort GI GI Narrative: gravid, abdomen nontender, AGA Narrative: right lower lockstitch back maker to percussion, not directly over kidney Assessment & Plan (1) Kidney stone complicating : COMMENT: 5.[address] scan, urology recommending transport for possible removal (2) Flank pain: (3) Low lying placenta without hemorrhage, antepartum: COMMENT: 0.5 cm, pelvic rest, repeat US at 28 weeks (4) H/O depression, currently : COMMENT: off celexa. counseling encouraged. (5) Supervision of high-risk : COMMENT: PRR (GCC) , MARBIN 10/15/23, girl Alejandra UNIQUE Maria Victoriaarina Yordan (6) : QUALIFIERS: Weeks of gestation: 17 weeks Qualified Code(s): Z3A.17 - 17 weeks gestation of COMMENT: nl NIPT and declined carrier testing, ntd. anatomy reviewed. PLAN: Plan will transport to [facility] for further management and evaluation Charges/Coding Multi Select Codes Visit Charges Observation E&M Codin Initial observation care L3
[2023-06-27] MEDS: Lactated Ringers 1,000 ML 200 ML IV (14:29)
== END 2023-06-27 14:45 | disposition short-term general hospital (02) ==
LOC: WPOUT 12:59 → WP 12:59
PROVIDERS: PCP Family Medicine; Visit Provider Advanced Practice Midwife
DX: O99.891 Other specified diseases and conditions complicating pregnancy (principal); N20.0 Calculus of kidney; O44.42 Low lying placenta NOS or without hemorrhage, second trimester; R10.9 Unspecified abdominal pain; Z3A.17 17 weeks gestation of pregnancy
CPT/HCPCS: 96365; 96366 ×2; 59025; 59050; 99221; J7120; A4216; G0378

== ENCOUNTER → 2023-07-14 | Outpatient (CLI) | payer BC, SELFPAY ==
[2023-07-14 10:07] LABS: Absolute Lymphocyte Count 2.91 X10^3/uL (0.83-4.51); Absolute Neutrophil Count 7.1 X10^3/uL (2.0-7.7); Basophil# 0.04 X10^3/uL; Basophil% 0.4 % (0-1); Eosinophil# 0.09 X10^3/uL; Eosinophils% 0.8 % (0-5); Hematocrit 33.3 % (37-47); Hemoglobin 10.2 g/dL (12.0-15.0); Lymphocyte # 2.91 X10^3/ul (0.83-4.51); Lymphocyte % 26.8 % (19-41); Mean Corp Hgb Conc 30.6 g/dL (32-36); Mean Corpuscular Hgb 27.6 pg (27.0-32.0); Mean Corpuscular Volume 90.2 fL (81-99); Mean Platelet Vol. 9.9 fl (6.2-12.0); Monocyte# 0.54 X10^3/uL; NRBC Flagged by Analyzer 0 % (0-5); Neutrophil # 7.13 X10^3/uL (2.7-7.7); Neutrophil % 65.7 % (47-70); Platelet Count 327 K/mm3 (150-450); RBC Distribution Width CV 13.2 % (11.6-14.6); RBC Distribution Width SD 42.7 fl (35.1-43.9); Red Blood Count 3.69 M/mm3 (4.2-5.4); White Blood Count 10.9 K/mm3 (4.4-11.0)
[2023-07-14 10:26] LABS: Glucose Challenge Gest 1H 50g 162 mg/dL (70-140)
[2023-07-14 11:00] LABS: HIV - WCH Non-Reactive (Nonreactive); Syphilis Antibodies Non-reactive
== END | disposition home or self-care (01) ==
LOC: PAVLAB 09:35
PROVIDERS: PCP Family Medicine; Referring Provider Registered Nurse; Visit Provider Registered Nurse
DX: O09.90 Supervision of high risk pregnancy, unspecified, unspecified trimester (principal); Z3A.00 Weeks of gestation of pregnancy not specified
CPT/HCPCS: 36415; 82950; 85025; 86703; 86780

== ENCOUNTER → 2023-07-28 | Outpatient (CLI) | payer BC, SELFPAY ==
[2023-07-28 08:10] LABS: Glucose GTT-Gestation. Fasting 90 mg/dL (<105)
[2023-07-28 08:54] LABS: Glucose GTT-Gestational 1 Hr 179 mg/dL (<190)
[2023-07-28 10:51] LABS: Glucose GTT-Gestational 2 Hr 96 mg/dL (<165)
[2023-07-28 11:33] LABS: Glucose GTT-Gestational 3 Hr 128 L (<145)
== END | disposition home or self-care (01) ==
LOC: LAB 07:06
PROVIDERS: PCP Family Medicine; Referring Provider Nurse Practitioner Women's Health; Visit Provider Nurse Practitioner Women's Health
DX: Z13.1 Encounter for screening for diabetes mellitus (principal)
CPT/HCPCS: 36415; 82951; 82952

== ENCOUNTER → 2023-09-23 | Outpatient (CLI) | payer BC, SELFPAY ==
--- OUTSIDE RECORDS SUMMARY | 2023-09-23 17:33 | XMS RPT_ITS | CCD ---
Author Name Unknown Address [address] [facility] [address] [place] [address] Organization [facility] Care Team Providers Care Sheet Manufacturing Supervisor Name Role Phone José Manuel Espinoza Unavailable Unavailable José Manuel Espinoza Unavailable Unavailable José Manuel Espinoza Unavailable Unavailable Ms. Donte Brown Attending Unava ilable Erlin, Dr. José Manuel Adames Primary Care Unavailab le Unavailable Primary Care Provider UnavailCHRISTIANO Sterling Attending Unavailable SOPHIA ESTEVEZ Admitting Unavailable SARATH MEADE Consulting Unavailable Sarath Meade MD Unavailable [phone] José Manuel Espinoza MD Primary Care Provider [phone] Greyson Davis MD Unavailable GREYSON DAVIS Attending Unavailable JOSÉ MANUEL ESPINOZA Primary Care Unavailable GABE MURO Attending Unavailable SARATH MEADE Attending Unavailable CHRISTIANO ARCE Admitting Unavailable CHRISTIANO ARCE Attending Unavailable BRYCE PRIMARY CAREMD Primary Care Unavailable MILIND SINHA Attending Unavailable BRENNA GEE Referring UnavailLYUDMILA Johnson Attending Unavailable NO PRIMARY CAREMD Primary Care Unavailable BRENNA GEE Referring Unavailjarad reyes Allergies Allergy Classification Reported Allergen(s) Allergy Type Date of Onset Reaction(s) Facility (6 sources) amoxicillin; Translations: [amoxicillin] Drug Allergy 04-24-2021 [facility] Repository (1 source) erythromycin; Translations: [erythromycin] Drug Allergy [facility] Repository (5 sources) Clindamycin; Translations: [CLINDAMYCIN] Drug Allergy 04-24-2021 [facility] (5 sources) Nitrofurantoin; Translations: [NITROFURANTOIN] Drug Allergy 04-24-2021 [facility] Medications Current Medications Medication Drug Class(es) Dates Sig (Normalized) Sig (Original) phenazopyridine hydrochloride 100 mg oral tablet (3 sources) Start: 06-27-2023 End: 06-30-2023 phenazopyridine (Pyridium) 100 MG tablet Vit-Fe Fumarate-FA ( VITAMINS PO) (4 sources) take 1 tablet by mouth once daily Vit-Fe Fumarate-FA ( VITAMINS PO) Take 1 tablet by mouth daily. 0 Active Completed/Discontinued Medications Medication Drug Class(es) Dates Sig (Normalized) Sig (Original) acetaminophen 325 mg oral tablet (6 sources) Start: 06-27-2023 End: 06-30-2023 take 1 tablet by mouth every four hours as needed for pain 650 mg, Oral, Every 4 hours PRN, mild pain (1-3), Fever GREATER than 100.5 F (38 C), Starting on 06/27/23 at 1611, Maximum dose of acetaminophen is 4000 mg from all sources in 24 hours. Problems Problem Classification Problem Date Documented Date Episodic/Chronic Calculus of urinary tract (14 sources) Calculus of kidney; Translations: [Kidney stone] Onset: 06-27-2023 Episodic Other ear and sense organ disorders (1 source) Unspecified hearing loss, bilateral; Translations: [Unspecified hearing loss, bilateral] Onset: 10-18-2022 Chronic Other upper respiratory infections (1 source) Acute pharyngitis, unspecified; Translations: [Acute pharyngitis, unspecified] Onset: 10-18-2022 Episodic Otitis media and related conditions (1 source) Unspecified nonsuppurative otitis media, bilateral; Translations: [Unspecified nonsuppurative otitis media, bilateral] Onset: 10-18-2022 Episodic Residual codes; unclassified (2 sources) Gestation period, 26 weeks; Translations: [26 weeks gestation of ] Onset: 07-11-2023 07-11-2023 Episodic Unclassified (1 source) Cough, unspecified; Translations: [Cough, unspecified] Onset: 10-18-2022 Unclassified (2 sources) Procedure; Translations: [Procedure] Onset: 07-11-2023 Results Test Name Value Interpretation Reference Range Facil ity Vital Signs Date Time Vital Sign Value Performing Clinician Faci lity 07-11-2023 10:19-0500 Body height 162.6 cm Greyson Davis MD Work Phone: [facility] [employer] 07-11-2023 10:19-0500 Body mass index (BMI) [Ratio] 28.32 kg/m2 Greyson Davis MD Work Phone: [facility] [employer] 07-11-2023 10:19-0500 Body weight 74.84 kg Greyson Davis MD Work Phone: [facility] [employer] 07-11-2023 10:19-0500 Diastolic blood pressure 68 mm[Hg] Greyosn Davis MD Work Phone: [facility] [employer] 07-11-2023 10:19-0500 Heart rate 91 /min Greyson Davis MD Work Phone: [facility] [employer] 07-11-2023 10:19-0500 Systolic blood pressure 118 mm[Hg] Greyson Davis MD Work Phone: [facility] [employer] 06-30-2023 08:35-0500 Body temperature 98.29 [degF] Christiano Arce MD Work Phone: [facility] [employer] 06-30-2023 08:35-0500 Diastolic blood pressure 76 mm[Hg] Christiano Arce MD Work Phone: [facility] [employer] 06-30-2023 08:35-0500 Heart rate 95 /min Christiano Arce MD Work Phone: [facility] [employer] [facility] 06-30-2023 08:35-0500 Respiratory rate 16 /min Christiano Arce MD Work Phone: [facility] [employer] [facility] 06-30-2023 08:35-0500 SaO2% (BldA) [Mass fraction] 98 % Christiano Arce MD Work Phone: [facility] [employer] 06-30-2023 08:35-0500 Systolic blood pressure 120 mm[Hg] Christiano Arce MD Work Phone: [facility] [employer] 06-27-2023 18:15-0400 Body height 162.6 cm Christiano Arce MD Work Phone: [facility] [employer] [facility] 06-27-2023 18:15-0400 Body mass index (BMI) [Ratio] 28.32 kg/m2 Christiano Arce MD Work Phone: [facility] 06-27-2023 18:150400 Body weight 74.84 kg Christiano Arce MD Work Phone: [facility] Encounters Encounter Date Encounter Type Care Provider Facility Start: 07-21-2023 End: 07-21-2023 ambulatory NO PRIMARY CARE [facility] Start: 07-11-2023 End: 07-11-2023 ambulatory GREYSON DAVIS [facility] Start: 07-11-2023 End: 07-11-2023 Office outpatient visit 10 minutes Greyson Davis MD Work Phone: [facility] Procedures Date Procedure Procedure Detail Performing Clinician Start: 06-30-2023 Us preg uterus real time f/u trnsabdl per fetus Ericka Arrieta DO Work Phone: Start: 06-30-2023 Basic metabolic pane l calcium total Kay Colin MD Work Phone: Start: 06-29-2023 FL GUIDANCE OR USE O NLY - NON-RESULTABLE Kay Colin MD Work Phone: Start: 06-29-2023 End: 06-29-2023 Cysto/uretero w/lithotripsy &indwell stent insrt Sarath Meade MD Work Phone: Start: 06-29-2023 Basic metabolic pane l calcium total Kay Colin MD Work Phone: Start: 06-28-2023 Basic metabolic pane l calcium total Kay Colin MD Work Phone: Start: 06-28-2023 Basic metabolic pane l calcium total Elisabeth Faith DO Work Phone: Start: 06-27-2023 Antibody screen CHRISTIANO ARCE Plan of Treatment Date Care Activity Detail Author Start: 2055 RSV Immunization age d 60 or older (1 - 1-dose 60+ series) RSV Immunization aged 60 or older (1 - 1-dose 60+ series) [facility] Start: 2045 Zoster Vaccines (1 of 2) Zoster Vacc josiah (1 of 2) [facility] Start: 06-26-2031 DTaP/Tdap/Td Vaccine s (2 - Td or Tdap) DTaP/Tdap/Td Vaccines (2 - Td or Tdap) [facility] Start: 07-11-2023 End: 07-11-2023 Patient encounter procedure 07/11/2023 10:20 AM EST Procedure Visit [facility] [address] [place] [address] Greyson Davis MD [address] [place] [address] [facility] Start: 04-25-2023 Influenza vaccination Influenza Vacc ine (#1) [facility] Start: 2016 Screening for malign ant neoplasm of cervix Pap Smear [facility] Start: 2014 DTaP/Tdap/Td Vaccine s (1 - Tdap) DTaP/Tdap/Td Vaccines (1 - Tdap) [facility] Start: 2013 Hepatitis C screening Hepatitis C Sc reening [facility] Start: 2007 Depression Screening Depression Scre ening [facility] Start: 1996 MMR Vaccines (1 of 1 - Standard series) MMR Vaccines (1 of 1 - Standard series) [facility] Start: 1996 Varicella vaccination Varicell a Vaccines (1 of 2 - 2-dose childhood series) [facility] Start: 02-17-1996 COVID-19 Vaccine (#1) COVID-19 Vacci ne (#1) [facility] Start: 1995 Hepatitis B Vaccines (1 of 3 - 3-dose series) Hepatitis B Vaccines (1 of 3 - 3-dose series) [facility] Start: 1995 HIV screening HIV Screening [facility] alejandra Calculi Analysis(Stone) [facility] Work Phone: Payers Date Payer Category Payer Unknown [id number] 2017 Unknown 1995 Unknown [id number] 1995 Unknown [id number] 1995 Unknown 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 smoking consumption unknown [facility] Start: 1995 Sex Assigned At Not on file [facility] Start: 06-27-2023 End: 06-29-2023 Gender identity Not on file [facility] Start: 06-27-2023 Tobacco smoking status IDIS Never sm oked tobacco [facility] Start: 06-27-2023 Tobacco use and exposure Smoke less tobacco non-user [facility] Start: 06-29-2023 Alcohol intake Ex-drinker (finding) [facility] Start: 06-27-2023 End: 06-29-2023 History of Social function [facility] In the past 12 month s, has lack of transportation kept you from medical appointments or from getting medications? No [facility] In the past 12 month s, was there a time when you were not able to pay the mortgage or rent on time? No [facility] Start: 01-22-2023 [facility] Procedure Code Equipment Code Equipment Origin al Text Equipment Identifier Dates Stent Uret 6fr 2 6cm Wo Gw - [id number] Start: 06-29-2023 Clinical Notes 06-27-2023 to 07-11-2023 Greyson Davis MD - 07/11/2023 10:20 AM ESTTelephone Encounter - Peyton Mathias RN - 06/30/2023 4:40 PM ESTTelephone Encounter - Peyton Mathias RN - 06/30/2023 4:40 PM ESTDischarge Instructions Note Date & Type Note Facility 07-11-2023 Note Cystoscopy and stent removal Procedure Note Pre-operative Diagnosis: Ureteral calculus, 26 weeks (24 weeks at the time of the surgical procedure) Post-operative Diagnosis: Ureteral calculus Procedure Details The risks, benefits, complications, treatment options, and expected outcomes were discussed with the patient. The patient concurred with the proposed plan, giving informed consent. A female rn medical surgical was present for the entire procedure. A proper time-out was performed. UROJET 6 ML NDC 77648-982-31 LOT # [id number] S1 EXPIRES 02/2025 Administered by Greyson Davis MD Pt tolerated well Cystoscopy was performed without incident. The patient was placed in the lithotomy position, prepped with Betadine, and draped in the usual sterile fashion. Lidocaine jelly was instilled into the urethra to effect local anesthesia. The sheathed digital flexible cystoscope was passed into the bladder without incident Findings: Urethra: normal without stenosis or evidence for urethral diverticulum Bladder: No tumors, diverticulae, stones, or mucosal abnormalities were seen Ureteral orifices: STENT REMOVED AND DISPOSED Specimens: None Complications: None. Patient tolerated the procedure well Plan: The patient is currently 26 weeks (EDC 10/15/23). She had no identifiable evidence for labor with any of the interventions. She is to contact her vendor management specialist if she has any episodes of flank pain following the stent removal This is her first stone. Therefore we will hold off on metabolic testing at this time. Increase fluid intake Greyson Davis M.D. 07/11/2023 06/29/2023: Right ureteroscopy, laser lithotripsy, stone extraction, stent insertion (24 weeks ) [facility] 07-11-2023 History of Presen t illness Narrative Cystoscopy and stent removal Procedure Note Pre-operative Diagnosis: Ureteral calculus, 26 weeks (24 weeks at the time of the surgical procedure) Post-operative Diagnosis: Ureteral calculus Procedure Details The risks, benefits, complications, treatment options, and expected outcomes were discussed with the patient. The patient concurred with the proposed plan, giving informed consent. A female rn medical surgical was present for the entire procedure. A proper time-out was performed. UROJET 6 ML NDC [id number] LOT # [id number] S1 EXPIRES 02/2025 Administered by Greyson Davis MD Pt tolerated well Cystoscopy was performed without incident. The patient was placed in the lithotomy position, prepped with Betadine, and draped in the usual sterile fashion. Lidocaine jelly was instilled into the urethra to effect local anesthesia. The sheathed digital flexible cystoscope was passed into the bladder without incident Findings: Urethra: normal without stenosis or evidence for urethral diverticulum Bladder: No tumors, diverticulae, stones, or mucosal abnormalities were seen Ureteral orifices: STENT REMOVED AND DISPOSED Specimens: None Complications: None. Patient tolerated the procedure well Plan: The patient is currently 26 weeks (EDC 10/15/23). She had no identifiable evidence for labor with any of the interventions. She is to contact her vendor management specialist if she has any episodes of flank pain following the stent removal This is her first stone. Therefore we will hold off on metabolic testing at this time. Increase fluid intake Greyson Davis M.D. 07/11/2023 06/29/2023: Right ureteroscopy, laser lithotripsy, stone extraction, stent insertion (24 weeks ) documented in this encounter [facility] [employer] 06-30-2023 Telephone encounter Note S: Patient spoke with [facility] nurse regarding URETEROSCOPY 06/29/23- incontinence and frequency issues B: Onset of symptoms/concern: one day A: Pt had cystoscopy with ureteroscopy and stent placement yesterday. Reporting burning with urination and frequency since procedure, with intermittent episodes of incontinence (when the baby kicks her a certain way). Was given pyridium at the hospital for these symptoms. Denies fever, abdominal pain, or vaginal bleeding. Postop instructions reviewed with pt-not unusual for bladder spasms and/or painful urination after procedure. Pt would like to check with urology to be sure. R: Message to urology provider. Patient understands care advice. No further needs at this time. Patient instructed to call back with new or worsening symptoms. Reason for Disposition [1] MILD-MODERATE post-op pain (e.g., pain scale 1-7) AND [2] not controlled with pain medications Protocols used: Post-Op Symptoms and [id number] [facility] [employer] 06-30-2023 Miscellaneous Notes S: Patient spoke with [facility] nurse regarding URETEROSCOPY 06/29/23- incontinence and frequency issues B: Onset of symptoms/concern: one day A: Pt had cystoscopy with ureteroscopy and stent placement yesterday. Reporting burning with urination and frequency since procedure, with intermittent episodes of incontinence (when the baby kicks her a certain way). Was given pyridium at the hospital for these symptoms. Denies fever, abdominal pain, or vaginal bleeding. Postop instructions reviewed with pt-not unusual for bladder spasms and/or painful urination after procedure. Pt would like to check with urology to be sure. R: Message to urology provider. Patient understands care advice. No further needs at this time. Patient instructed to call back with new or worsening symptoms. Reason for Disposition [1] MILD-MODERATE post-op pain (e.g., pain scale 1-7) AND [2] not controlled with pain medications Protocols used: Post-Op Symptoms and [id number] documented in this encounter [facility] 06-30-2023 Note Attestation signed by Sophia Estevez MD at 06/30/2023 4:08 PM Maternal Medicine attending attestation: I reviewed and agree with the care provided by the resident during or immediately following the visit including the patient's medical history, the resident's findings in the physical exam, patient's diagnosis and discharge plan. @[email or web address]@ Department of Obstetrics and Gynecology [facility] Discharge Summary Admission on 06/27/2023 4:[address] is a 27 y.o. at 24w5d who was transferred from an OSH for evaluation for a kidney stone. Patient was found to have a 5 mm obstructing right kidney stone. Conservative management did not achieve adequate pain control and she was taken for lithotripsy and ureteral stent placement on 06/29/23 by Urology. Following procedure patient's pain had significantly improved. She was on a brief course of Rocephin from 06/27-06/29, but urine culture was negative and therefore it was discontinued. She was discharged home in stable condition on 06/30/23 with strict return precautions. Meds: Medication List CONTINUE taking these medications acetaminophen 500 MG tablet Commonly known as: Tylenol oxyCODONE 5 MG immediate release tablet Commonly known as: Roxicodone VITAMINS PO prochlorperazine 5 MG tablet Commonly known as: Compazine Discharge to: Home Discharge date: 06/30/23 Discharge Dx: Right ureteral nephrolithiasis Follow up appointment with your doctor/staff midwife/apprenticeship director - Call office for appointment in 7days; follow-up with Dr. Davis on 07/11/23 Activity - Normal Activity Call your doctor/staff midwife/apprenticeship director if you have: - leaking fluid - vaginal bleeding - regular contractions: More than 6 contractions in one hour - decreased movement - worsening abdominal (belly) pain - headache, blurry vision, increased swelling, upper abdominal pain TEJINDER RUDD, DO on 06/30/2023 at 2:16 PM [facility] 06-30-2023 Nurse Note 1440 discharge instructions given, papers signed [facility] 06-30-2023 Nurse Note 1440 discharge instructions given, papers signed documented in this encounter [facility] 06-30-2023 Hospital course Narrative @[email or web address]@ Department of Obstetrics and Gynecology [facility] Discharge Summary Admission on 06/27/2023 4:[address] is a 27 y.o. at 24w5d who was transferred from an OSH for evaluation for a kidney stone. Patient was found to have a 5 mm obstructing right kidney stone. Conservative management did not achieve adequate pain control and she was taken for lithotripsy and ureteral stent placement on 06/29/23 by Urology. Following procedure patient's pain had significantly improved. She was on a brief course of Rocephin from 06/27-06/29, but urine culture was negative and therefore it was discontinued. She was discharged home in stable condition on 06/30/23 with strict return precautions. Meds: Medication List CONTINUE taking these medications acetaminophen 500 MG tablet Commonly known as: Tylenol oxyCODONE 5 MG immediate release tablet Commonly known as: Roxicodone VITAMINS PO prochlorperazine 5 MG tablet Commonly known as: Compazine Discharge to: Home Discharge date: 06/30/23 Discharge Dx: Right ureteral nephrolithiasis Follow up appointment with your doctor/staff midwife/apprenticeship director - Call office for appointment in 7days; follow-up with Dr. Davis on 07/11/23 Activity - Normal Activity Call your doctor/staff midwife/apprenticeship director if you have: - leaking fluid - vaginal bleeding - regular contractions: More than 6 contractions in one hour - decreased movement - worsening abdominal (belly) pain - headache, blurry vision, increased swelling, upper abdominal pain TEJINDER RUDD DO on 06/30/2023 at 2:16 PM Associated attestation - Sophia Estevez MD - 06/30/2023 4:08 PM EST Maternal Medicine attending attestation: I reviewed and agree with the care provided by the resident during or immediately following the visit including the patient's medical history, the resident's findings in the physical exam, patient's diagnosis and discharge plan. documented in this encounter [facility] 06-30-2023 Hospital Discharg e instructions Tejinder Rudd DO - 06/30/2023 1:03 PM EST Follow up appointment with your doctor/staff midwife/apprenticeship director - Call office for appointment in 7days Activity - Normal Activity Call your doctor/staff midwife/apprenticeship director if you have: - leaking fluid - vaginal bleeding - regular contractions: More than 6 contractions in one hour - decreased movement - worsening abdominal (belly) pain - headache, blurry vision, increased swelling, upper abdominal pain If you are going home with contractions that are uncomfortable/painful- we recommend these coping strategies: rhythmic breathing, hydrotherapy, imagery or visualization, gentle massage, walking and changing your position. Treatment Verification: Donte St was assessed on Labor and Delivery for a related visit on 06/30/23 . TEJINDER RUDD DO [facility] The following attachments cannot be sent through Care Everywhere.Laser Lithotripsy for Kidney Stones Discharge Instructions (Rwandan)Ureteral Stent Discharge Instructions (Rwandan)documented in this encounter [facility] 06-30-2023 Miscellaneous Notes Date: 06/30/2023 Name: Donte St : 1995 [facility] Patient Information Primary Caregiver: Self Accompanied by/Relationship: S/O;Family Marital Status: Support System: SO/Family Protestant/Cultural Factors: none Activities of Daily Living Communication: See demographics Living Arrangements Current Residence: Private residence Lives With: S/O; Family Support System: S/O; Family Income Information Income Source: Employed Financial Resource Strain How hard is it for you to pay for the very basics like food, housing, medical care and heating? N/A Housing Stability In the last 12 months, was there a time when you did not have a steady place to sleep or slept in a mcfp (including now)? No Transportation Needs Has the lack of Transportation kept you from medical appointments? No In the past 12 months, has the lack of transportation kept you from meetings, work, or from getting things needed for daily living? No Food Insecurity Within the past 12 months, have you worried that your food would run out before you got the money to buy more? No Stress Do you feel stress - tense, restless, nervous, or anxious, or unable to sleep at night because you mind is troubled all the time? Mood stable Referral To Financial Resources: N/A Community Resources: PNU folder given upon admission to PNU Unit Social Work: N/A CLP: N/A Medical Information 27 year old admitted for nephrolithiasis. S/P cystoscopy Low lying placenta. History of depression. Mood stable. Discharge Plan Home or Community Resources: PNU Admission folder given upon admission to unit Equipment: N/A Education Given: PNU admit folder and see Education Tab Additional Information: N/A Mental Health Services: N/A Developmental Delay: N/A Children's Services: N/A Pt to floor with OB nurses, nad, resp nonlabored, alert and oriented. Pt denies any pain except for a sore throat Report called to floor, RN ax 2 to transport pt to room OB nurse at bedside to monitor baby PreOp Dx right ureteral calculus PostOp Dx Same Operation Cystoscopy, retrograde pyelogram, flouroscopy, right ureteroscopy, laser lithotripsy, ureteral stent placement Surgeon Sarath Meade MD Assist None EBL Minimal Drains 6 fr X 26cmJJ Jones none Specimen calculus Condition To PACU This is a 27 y.o. patient who presents with a ureteral calculus. After having a discussion on treatment options, risks and benefits, the patient wishes to proceed forward with surgical intervention Patient was brought to the operating room. A thorough time out was performed and everyone present was in agreement. Patient was placed on OR table. Anesthesia and lines were maintained by the anesthesia team. Patient was placed in the dorsal lithotomy position. Prepped and draped in usual fashion. Pressure points were padded. A cystourethroscope was inserted through the urethra and the bladder was inspected. A sensor wire was advanced to the level of the kidney. A single flouro image was captured to confirm wire position The 6.9fr semirigid ureteroscope was advanced alongside the wire. Care was taken to minimize injury to the ureteral orifice. The stone was able to be visualized. It was laser lithotripsied into numerous small passable fragments. These were basket extracted. One final pass of the ureteroscope did confirm there was no remaining stone. A 12/14 fr ureteral access sheath was advanced over the wire under fluoroscopy. A flexible ureteroscope was passed through the access sheath. The stone was visualized and laser lithotripsied using the holmium laser. The fragments were extracted using the stone basket. A 6 fr X 26cmJJ was advanced over the wire through the cystoscope under fluoroscopic visualization. Once in position the wire was removed. A good curl was noted in the kidney and the bladder via single flouroscopy image The bladder was emptied and patient awoken from anesthesia. documented in this encounter [facility] 06-30-2023 Note Formatting of this n ote might be different from the original. Date: 06/30/2023 Name: Donte St : 1995 [facility] Patient Information Primary Caregiver: Self Accompanied by/Relationship: S/O;Family Marital Status: Support System: SO/Family Protestant/Cultural Factors: none Activities of Daily Living Communication: See demographics Living Arrangements Current Residence: Private residence Lives With: S/O; Family Support System: S/O; Family Income Information Income Source: Employed Financial Resource Strain How hard is it for you to pay for the very basics like food, housing, medical care and heating? N/A Housing Stability In the last 12 months, was there a time when you did not have a steady place to sleep or slept in a mcfp (including now)? No Transportation Needs Has the lack of Transportation kept you from medical appointments? No In the past 12 months, has the lack of transportation kept you from meetings, work, or from getting things needed for daily living? No Food Insecurity Within the past 12 months, have you worried that your food would run out before you got the money to buy more? No Stress Do you feel stress - tense, restless, nervous, or anxious, or unable to sleep at night because you mind is troubled all the time? Mood stable Referral To Financial Resources: N/A Community Resources: PNU folder given upon admission to PNU Unit Social Work: N/A CLP: N/A Medical Information 27 year old admitted for nephrolithiasis. S/P cystoscopy Low lying placenta. History of depression. Mood stable. Discharge Plan Home or Community Resources: PNU Admission folder given upon admission to unit Equipment: N/A Education Given: PNU admit folder and see Education Tab Additional Information: N/A Mental Health Services: N/A Developmental Delay: N/A Children's Services: N/A [facility] 06-30-2023 Note Formatting of this n ote might be different from the original. Date: 06/30/2023 Name: Donte St : 1995 [facility] Patient Information Primary Caregiver: Self Accompanied by/Relationship: S/O;Family Marital Status: Support System: SO/Family Protestant/Cultural Factors: none Activities of Daily Living Communication: See demographics Living Arrangements Current Residence: Private residence Lives With: S/O; Family Support System: S/O; Family Income Information Income Source: Employed Financial Resource Strain How hard is it for you to pay for the very basics like food, housing, medical care and heating? N/A Housing Stability In the last 12 months, was there a time when you did not have a steady place to sleep or slept in a mcfp (including now)? No Transportation Needs Has the lack of Transportation kept you from medical appointments? No In the past 12 months, has the lack of transportation kept you from meetings, work, or from getting things needed for daily living? No Food Insecurity Within the past 12 months, have you worried that your food would run out before you got the money to buy more? No Stress Do you feel stress - tense, restless, nervous, or anxious, or unable to sleep at night because you mind is troubled all the time? Mood stable Referral To Financial Resources: N/A Community Resources: PNU folder given upon admission to PNU Unit Social Work: N/A CLP: N/A Medical Information 27 year old admitted for nephrolithiasis. S/P cystoscopy Low lying placenta. History of depression. Mood stable. Discharge Plan Home or Community Resources: PNU Admission folder given upon admission to unit Equipment: N/A Education Given: PNU admit folder and see Education Tab Additional Information: N/A Mental Health Services: N/A Developmental Delay: N/A Children's Services: N/A [facility] [employer] 06-30-2023 Note UROLOGY PROGRESS NOTE PATIENT NAME: Donte St DATE OF : 1995 ADMISSION DATE: 06/27/2023 TODAY'S DATE: 06/30/2023 Subjective Underwent right ureteral stent placement in the OR yesterday Pain is improved from procedure Having some light hematuria Denies fevers or chills Objective VS: BP 130/78 Pulse 98 Temp 36.7 ?C (98.1 ?F) (Temporal) Resp 18 Ht 5' 4 (1.626 m) Wt 165 lb (74.8 kg) SpO2 97% BMI 28.32 kg/m? I & O - 24hr: I/O last 3 completed shifts: In: 2987.5 (39.9 mL/kg) [I.V.:2930 (39.1 mL/kg); IV Piggyback:57.5] Out: 1500 (20 mL/kg) [Urine:1500 (0.6 mL/kg/hr)] Weight: 74.8 kg No intake/output data recorded. Physical Exam: General: Neck: Resp: Abdomen: No acute distress Supple Normal effort, no respiratory distress, on RA Gravid; Soft, non-tender, nondistended : No CVA TTP bilaterally Skin: Skin color, texture, turgor normal, no rashes or lesions Labs and Imaging Studies Labs: CBC: Lab Results Component Value Date WBC 9.7 06/30/2023 HGB 10.5 (L) 06/30/2023 HCT 31.0 (L) 06/30/2023 MCV 84.5 06/30/2023 PLT 261 06/30/2023 BMP: Lab Results Component Value Date GLUCOSE 93 06/30/2023 CALCIUM 8.2 (L) 06/30/2023 NA 135 06/30/2023 K 3.5 06/30/2023 CO2 22 06/30/2023 CL 106 06/30/2023 BUN 6 (L) 06/30/2023 CREATININE 0.54 06/30/2023 PT/INR: Lab Results Component Value Date INR <0.9 (L) 06/28/2023 PROTIME 9.7 06/28/2023 U/A: UA 26-50 RBC, 15 leukos, nitrite negative Urine Culture: in process Blood Culture: N/A Imaging Studies: See PACs for outside images Assessment and Plan ASSESSMENT: 27 y.o. female with R. Obstructing kidney stone PLAN: - Maintain R ureteral stent - Daily labs reviewed. Cr near baseline and wnl. No leukocytosis - Pain/nausea control prn - Ok for regular diet and discharge from urology standpoint - Will set up outpatient stent removal and have office call her Camden Ramírez MD Urology, PGY3 06/30/2023 The history and physical has been reviewed. The pertinent findings from the history of present illness, past medical history, family history, social history, review of systems have been noted and confirmed that are unchanged. Discussed with the urology resident. Agree with assessment and plan [facility] 06-30-2023 Note Patient: Donte munguia Procedure Summary Date: 06/29/23 Room / Location: [address] Operating Room Anesthesia Start: 1309 Anesthesia Stop: 1354 Procedure: CYSTOSCOPY WITH URETEROSCOPY WITH LITHOTRIPSY (Right: Ureter) Diagnosis: Nephrolithiasis (Nephrolithiasis [N20.0]) Surgeons: Sarath Meade MD Responsible Provider: Emir Mackenzie MD Anesthesia Type: general ASA Status: 2 Anesthesia Type: general Vitals Value Taken Time BP 120/80 06/29/23 1415 Temp 36.1 ?C (97 ?F) 06/29/23 1355 Pulse 96 06/29/23 1421 Resp 18 06/30/23 0657 SpO2 100 % 06/29/23 1421 Vitals shown include unfiled device data. Anesthesia Post Evaluation Patient location during evaluation: PACU Patient participation: complete - patient participated Level of consciousness: awake and alert Pain management: satisfactory to patient Airway patency: patent Dental Injury: no Cardiovascular status: acceptable, blood pressure returned to baseline and hemodynamically stable Respiratory status: acceptable and spontaneous ventilation Hydration status: euvolemic Nausea/Vomiting: controlled No notable events documented. Patient can be discharged once all PACU criteria has been met. [facility] 06-30-2023 Note Patient: Donte munguia Procedure Summary Date: 06/29/23 Room / Location: [address] Operating Room Anesthesia Start: 1309 Anesthesia Stop: 1354 Procedure: CYSTOSCOPY WITH URETEROSCOPY WITH LITHOTRIPSY (Right: Ureter) Diagnosis: Nephrolithiasis (Nephrolithiasis [N20.0]) Surgeons: Sarath Meade MD Responsible Provider: Emir Mackenzie MD Anesthesia Type: general ASA Status: 2 Anesthesia Type: general Vitals Value Taken Time BP 120/80 06/29/23 1415 Temp 36.1 ?C (97 ?F) 06/29/23 1355 Pulse 96 06/29/23 1421 Resp 18 06/30/23 0657 SpO2 100 % 06/29/23 1421 Vitals shown include unfiled device data. Anesthesia Post Evaluation Patient location during evaluation: PACU Patient participation: complete - patient participated Level of consciousness: awake and alert Pain management: satisfactory to patient Airway patency: patent Dental Injury: no Cardiovascular status: acceptable, blood pressure returned to baseline and hemodynamically stable Respiratory status: acceptable and spontaneous ventilation Hydration status: euvolemic Nausea/Vomiting: controlled No notable events documented. Patient can be discharged once all PACU criteria has been met. [facility] 06-30-2023 History of Presen t illness Narrative UROLOGY PROGRESS NOTE PATIENT NAME: Donte St DATE OF : 1995 ADMISSION DATE: 06/27/2023 TODAY'S DATE: 06/30/2023 Subjective Underwent right ureteral stent placement in the OR yesterday Pain is improved from procedure Having some light hematuria Denies fevers or chills Objective VS: BP 130/78 Pulse 98 Temp 36.7 C (98.1 F) (Temporal) Resp 18 Ht 5' 4 (1.626 m) Wt 165 lb (74.8 kg) SpO2 97% BMI 28.32 kg/m I & O - 24hr: I/O last 3 completed shifts: In: 2987.5 (39.9 mL/kg) [I.V.:2930 (39.1 mL/kg); IV Piggyback:57.5] Out: 1500 (20 mL/kg) [Urine:1500 (0.6 mL/kg/hr)] Weight: 74.8 kg No intake/output data recorded. Physical Exam: General: Neck: Resp: Abdomen: No acute distress Supple Normal effort, no respiratory distress, on RA Gravid; Soft, non-tender, nondistended : No CVA TTP bilaterally Skin: Skin color, texture, turgor normal, no rashes or lesions Labs and Imaging Studies Labs: CBC: Lab Results Component Value Date WBC 9.7 06/30/2023 HGB 10.5 (L) 06/30/2023 HCT 31.0 (L) 06/30/2023 MCV 84.5 06/30/2023 PLT 261 06/30/2023 BMP: Lab Results Component Value Date GLUCOSE 93 06/30/2023 CALCIUM 8.2 (L) 06/30/2023 NA 135 06/30/2023 K 3.5 06/30/2023 CO2 22 06/30/2023 CL 106 06/30/2023 BUN 6 (L) 06/30/2023 CREATININE 0.54 06/30/2023 PT/INR: Lab Results Component Value Date INR <0.9 (L) 06/28/2023 PROTIME 9.7 06/28/2023 U/A: UA 26-50 RBC, 15 leukos, nitrite negative Urine Culture: in process Blood Culture: N/A Imaging Studies: See PACs for outside images Assessment and Plan ASSESSMENT: 27 y.o. female with R. Obstructing kidney stone PLAN: - Maintain R ureteral stent - Daily labs reviewed. Cr near baseline and wnl. No leukocytosis - Pain/nausea control prn - Ok for regular diet and discharge from urology standpoint - Will set up outpatient stent removal and have office call her Camden Ramírez MD Urology, PGY3 06/30/2023 The history and physical has been reviewed. The pertinent findings from the history of present illness, past medical history, family history, social history, review of systems have been noted and confirmed that are unchanged. Discussed with the urology resident. Agree with assessment and plan Images from the original note were not included. Maternal Medicine Service Resident Progress Note 06/30/2023 6:24 AM 06/27/2023 Hospital Day: [address], 27 y.o. 24w5d Patient has been seen and examined. Pt complains of urinary frequency overnight and reports some hematuria. Denies any vaginal bleeding however. States her pain has significantly improved since procedure. Positive movement Negative vaginal bleeding Negative LOF Negative Contractions Vitals: 06/29/23 1415 06/29/23 1420 06/29/23 1442 06/29/23 1927 BP: 120/80 130/78 Pulse: 95 98 Resp: 14 18 Temp: 36.3 C (97.4 F) 36.7 C (98.1 F) TempSrc: Oral Temporal SpO2: 98% 99% 97% Weight: Height: Reviewed from [id number] on 06/29 FHT: 150, moderate variability Accels: present Decels: Variable deceleration at 1736 on 06/29 Contractions: none Physical Exam: Gen: NAD HEENT: Normocephalic, Atraumatic Resp: No increased work of breathing Abd: soft, gravid, NTND, no rebound, no guarding.negative fundal tenderness Ext: No LE edema, no calf tenderness or swelling Medications: Current Facility-Administered Medications Medication Dose Route Frequency Provider Last Rate Last Admin acetaminophen (Tylenol) tablet 650 mg 650 mg Oral q4h PRN Kay Colin MD 650 mg at 06/30/23 0215 cefTRIAXone (Rocephin) 1,000 mg in sodium chloride 0.9 % 50 mL IVPB Mini-Bag Plus 1,000 mg IntraVENous q24h Kay Colin MD Stopped at 06/29/23 1903 cyclobenzaprine (Flexeril) tablet 5 mg 5 mg Oral TID PRN Kay Colin MD 5 mg at 06/29/23 0336 docusate sodium (Colace) capsule 100 mg 100 mg Oral Daily PRN Blanca Camacho DO 100 mg at 06/29/23 2226 influenza vac subunit quadrivalent (Flucelvax) injection 0.5 mL 0.5 mL IntraMUSCular Once Kay Colin MD lactated Ringer's infusion 100 mL/hr IntraVENous Continuous Kay Colin MD Stopped at 06/29/23 1931 Lidocaine 4 % patch 1 patch 1 patch TransDERmal Daily Kay Colin MD 1 patch at 06/28/23 1621 ondansetron ODT (Zofran-ODT) disintegrating tablet 4 mg 4 mg Oral q8h PRN Kay Colin MD 4 mg at 06/28/23 194 Or ondansetron (Zofran) injection 4 mg 4 mg IntraVENous q6h PRN Kay Colin MD oxyCODONE (Roxicodone) immediate release tablet 5 mg 5 mg Oral q6h PRN Kay Colin MD 5 mg at 06/28/23 1526 phenazopyridine (Pyridium) tablet 100 mg 100 mg Oral TID PRN Kay Colin MD 100 mg at 06/29/23 1836 vitamin tablet 1 tablet Oral Daily Kay Colin MD 1 tablet at 06/29/23 1928 sodium chloride 0.9 % infusion 5-250 mL/hr IntraVENous PRN Kay Colin MD sodium chloride 0.9% (NS) flush 10 mL 10 mL IntraVENous PRN Kay Colin MD 10 mL at 06/27/23 183 sodium chloride 0.9% (NS) flush 10 mL 10 mL IntraVENous 2 times per day Ericka Arrieta DO 10 mL at 06/29/23 2100 tamsulosin (Flomax) 24 hr capsule 0.4 mg 0.4 mg Oral Daily Kay Colin MD 0.4 mg at 06/29/23 0926 Facility-Administered Medications Ordered in Other Encounters Medication Dose Route Frequency Provider Last Rate Last Admin dexAMETHasone (PF) (Decadron) injection IntraVENous PRN Ruy Henson FISH HATCHERY WORKER - RISK MANAGEMENT CONSULTANT 4 mg at 06/29/23 1315 lidocaine PF (Xylocaine) 2 % injection IntraVENous PRN Ruy Henson, FISH HATCHERY WORKER - RISK MANAGEMENT CONSULTANT 50 mg at 06/29/23 1314 ondansetron (Zofran) injection IntraVENous PRN Ruy Henson FISH HATCHERY WORKER - RISK MANAGEMENT CONSULTANT 4 mg at 06/29/23 1315 Propofol (Diprivan) injection IntraVENous PRN Ruy Henson, FISH HATCHERY WORKER - RISK MANAGEMENT CONSULTANT 150 mg at 06/29/23 1314 Succinylcholine Chloride (Anectine) injection IntraVENous PRN Ruy Escobedoent, FISH HATCHERY WORKER - RISK MANAGEMENT CONSULTANT 110 mg at 06/29/23 1314 Assessment/Plan: Donte St is a 27 y.o. female 24w5d Nephrolithiasis S/p cystoscopy, retrograde pyelogram, flouroscopy, right ureteroscopy, laser lithotripsy and ureteral stent placement - Transport from [place] after presenting with flank pain and CT demonstrated right 5.5 mm obstructing kidney stone - Underwent above procedure with urology on 06/29, pain improved since that time - Reporting urinary frequency this AM and some hematuria, but otherwise pain has largely improved - Continue PO pain medication as needed - Has been on Rocephin prior to procedure, will discuss with urology if any indication for antibiotics for PO antibiotics post-operatively - No leukocytosis this AM, BMP pending - Likely discharge home today after discussion with Urology and labs resulted Low Lying Placenta - Denies any vaginal bleeding Hx depression - No medications - Mood stable this AM IUP @ 24w5d - Dating by LMP, 9w5d US - Cephalic 06/27 - Monitoring:NSTbid - Diet:General - BMZ Deferred Further plan pending d/w attending. TEJINDER RUDD DO 06/30/2023, 6:24 AM Associated attestation - Sophia Estevez MD - 06/30/2023 4:07 PM EST Maternal Medicine attending attestation: I reviewed and agree with the care provided by the resident during or immediately following the visit including the patient's medical history, the resident's findings in the physical exam, patient's diagnosis and treatment plan. Doing much better after her lithotripsy and ureteral stent placement with some hematuria and discussed follow up with primary OB in [place] and precautions to return if needed. Dr. Cordell Lanier aware of plan and patient outcome. The total patient time of the visit was 20 minutes, of which was greater than 50% of the time was spent counseling and coordinating care. Nutrition rescreen completed. Chart reviewed. Patient NPO for procedure. Patient to be monitored and followed by the diet electronics technician apprentice. Dietitian available upon request. JANN Mejia UROLOGY PROGRESS NOTE PATIENT NAME: Donte St DATE OF : 1995 ADMISSION DATE: 06/27/2023 TODAY'S DATE: 06/29/2023 Subjective No acute events overnight. Still having R flank pain this AM NPO for OR today Objective VS: BP 108/68 Pulse 90 Temp 36.6 C (97.9 F) (Oral) Resp 16 Ht 5' 4 (1.626 m) Wt 165 lb (74.8 kg) SpO2 96% BMI 28.32 kg/m I & O - 24hr: I/O last 3 completed shifts: In: 1450 (19.4 mL/kg) [I.V.:1350 (18 mL/kg); IV Piggyback:100] Out: 5150 (68.8 mL/kg) [Urine:5150 (1.9 mL/kg/hr)] Weight: 74.8 kg No intake/output data recorded. Physical Exam: General: Neck: Resp: Abdomen: No acute distress Supple Normal effort, no respiratory distress, on RA Gravid; Soft, non-tender, nondistended : No jones, voiding spontaneously, R flank pain Skin: Skin color, texture, turgor normal, no rashes or lesions Labs and Imaging Studies Labs: CBC: Lab Results Component Value Date WBC 7.6 06/29/2023 HGB 10.3 (L) 06/29/2023 HCT 30.6 (L) 06/29/2023 MCV 83.9 06/29/2023 PLT 229 06/29/2023 BMP: Lab Results Component Value Date GLUCOSE 82 06/29/2023 CALCIUM 7.7 (L) 06/29/2023 NA 135 06/29/2023 K 3.4 (L) 06/29/2023 CO2 22 06/29/2023 CL 109 (H) 06/29/2023 BUN 5 (L) 06/29/2023 CREATININE 0.48 (L) 06/29/2023 PT/INR: Lab Results Component Value Date INR <0.9 (L) 06/28/2023 PROTIME 9.7 06/28/2023 U/A: UA 26-50 RBC, 15 leukos, nitrite negative Urine Culture: in process Blood Culture: N/A Imaging Studies: See PACs for outside images Assessment and Plan ASSESSMENT: 27 y.o. female with R. Obstructing kidney stone PLAN: - OR for ureteral stent v. URS/LL - NPO - Check Ucx neg for infection - Cr wnl, continue to monitor - Pain/nausea control per OB - Page immediately with fevers/hypotension - remainder of care per primary team Kay Colin MD PGY-2 Urology 06/29/23 8:18 AM Associated attestation - Sarath Meade MD - 06/29/2023 9:40 AM EST I saw and evaluated the patient, participating in the sepulveda portions of the service. I reviewed the resident s note. I agree with the resident s findings and plan. Discussed the surgery, including risks and benefits. Discussed risks of labor. Discussed stents vs Perc Neph She does wish to proceed with surgery Sarath Meade MD Images from the original note were not included. Maternal Medicine Service Resident Progress Note 06/29/2023 6:41 AM 06/27/2023 Hospital Day: [address], 27 y.o. 24w4d Patient has been seen and examined. Pt slept well overnight, pain controlled. Had no complaints. Has been NPO in preparation fro procedure . Positive movement Negative vaginal bleeding Negative LOF Negative Contractions Vitals: 06/28/23 0458 06/28/23 0903 06/28/23 1423 06/28/23 1950 BP: 101/62 101/65 120/79 Pulse: 89 100 90 Resp: 16 16 15 18 Temp: 36.6 C (97.9 F) 36.5 C (97.7 F) 36.6 C (97.8 F) 36.8 C (98.3 F) TempSrc: Temporal Oral Temporal Temporal SpO2: 97% 96% 96% Weight: Height: FHT: 150, moderate variability Accels: absent Decels: absent Contractions: none Physical Exam: Gen: NAD HEENT: Normocephalic, Atraumatic, EOMI, MMM Resp: no increased work of breathing Abd: soft, gravid, NTND, no rebound, no guarding. No fundal tenderness Ext: No LE edema, no calf tenderness or swelling Medications: Current Facility-Administered Medications Medication Dose Route Frequency Provider Last Rate Last Admin acetaminophen (Tylenol) tablet 650 mg 650 mg Oral q4h PRN Ericka Arrieta, DO 650 mg at 06/29/23 0101 cefTRIAXone (Rocephin) 1,000 mg in sodium chloride 0.9 % 50 mL IVPB Mini-Bag Plus 1,000 mg IntraVENous q24h Elisabeth Faith, DO Stopped at 06/28/23 1825 cyclobenzaprine (Flexeril) tablet 5 mg 5 mg Oral TID PRN Elisabeth Faith, DO 5 mg at 06/29/23 0336 influenza vac subunit quadrivalent (Flucelvax) injection 0.5 mL 0.5 mL IntraMUSCular Once Ericka Arrieta, DO lactated Ringer's infusion 100 mL/hr IntraVENous Continuous Elisabeth Faith, DO 100 mL/hr at 06/29/23 0114 100 mL/hr at 06/29/23 0114 Lidocaine 4 % patch 1 patch 1 patch TransDERmal Daily Hermelinda De La Fuente MD 1 patch at 06/28/23 1621 ondansetron ODT (Zofran-ODT) disintegrating tablet 4 mg 4 mg Oral q8h PRN Ericka Arrieta, DO 4 mg at 06/28/23 1941 Or ondansetron (Zofran) injection 4 mg 4 mg IntraVENous q6h PRN Ericka Arrieta, DO oxyCODONE (Roxicodone) immediate release tablet 5 mg 5 mg Oral q6h PRN Ericka Arrieta, DO 5 mg at 06/28/23 1526 phenazopyridine (Pyridium) tablet 100 mg 100 mg Oral TID PRN Elisabeth Faith, DO 100 mg at 06/29/23 0103 vitamin tablet 1 tablet Oral Daily Ericka Kontarovich, DO 1 tablet at 06/28/23 194 sodium chloride 0.9 % infusion 5-250 mL/hr IntraVENous PRN Ericka Kontarovich, DO sodium chloride 0.9% (NS) flush 10 mL 10 mL IntraVENous 2 times per day Ericka Kontarovich, DO sodium chloride 0.9% (NS) flush 10 mL 10 mL IntraVENous PRN Ericka Kontarovich, DO tamsulosin (Flomax) 24 hr capsule 0.4 mg 0.4 mg Oral Daily Ericka Kontarovich, DO 0.4 mg at 06/28/23 0901 Assessment/Plan: Donte St is a 27 y.o. female 24w4d Nephrolithiasis - Transport from [place], presented with flank pain and had CT that demonstrated likely 5.5mm obstructing kidney stone - flomax, IVF and tylenol/oxy PRN ordered - Urology consulted, appreciate recs, planning lithotripsy today - will obtain monitoring before and after procedure - has been NPO overnight - Cr stable and wnl, 0.45 06/28 - no leukocytosis 06/29 - Continue rocephin q24hr - Pain controlled with oral medications overnight Low lying placenta - denies vaginal bleeding Hx PP Depression - no medications - mood stable this AM IUP @ 24w4d - Dating by LMP, 9w5d US - Cephalic 06/27 - Monitoring:NST BID - Diet:NPO for procedure - BMZ deferred Further plan pending d/w attending. Kalyn Benavides MD 06/29/2023, 6:41 AM Associated attestation - Sophia Estevez MD - 06/29/2023 11:57 AM EST Maternal Medicine attending attestation: I reviewed and agree with the care provided by the resident during or immediately following the visit including the patient's medical history, the resident's findings in the physical exam, patient's diagnosis and treatment plan. Patient not seen due to in OR for laser lithotripsy, Dr. Cordell Lanier updated from [place] as well Patient admitted for nephrolithiasis. Urology consulted and recommends lithotripsy tomorrow AM. Patient 24 weeks 3d gestation and is cleared to have surgery tomorrow from a [facility] perspective. EDVIN PANDEY, 06/28/2023 7:25 PM UROLOGY PROGRESS NOTE PATIENT NAME: Donte St DATE OF : 1995 ADMISSION DATE: 06/27/2023 TODAY'S DATE: 06/28/2023 Subjective No acute events overnight. She tolerated fluids up until midnight and then has been NPO since anticipating possible procedure tonight. She denies N/V. She states that her abdominal pain is well controlled. Objective VS: BP 101/62 Pulse 89 Temp 36.6 C (97.9 F) (Temporal) Resp 16 Ht 5' 4 (1.626 m) Wt 165 lb (74.8 kg) SpO2 97% BMI 28.32 kg/m I & O - 24hr: I/O last 3 completed shifts: In: - (0 mL/kg) Out: 1550 (20.7 mL/kg) [Urine:1550 (0.6 mL/kg/hr)] Weight: 74.8 kg No intake/output data recorded. Physical Exam: General: Neck: Resp: Abdomen: No acute distress Supple Normal effort, no respiratory distress, on RA Gravid; Soft, non-tender, nondistended : No jones, voiding spontaneously Skin: Skin color, texture, turgor normal, no rashes or lesions Labs and Imaging Studies Labs: CBC: Lab Results Component Value Date WBC 12.6 (H) 06/27/2023 HGB 10.1 (L) 06/27/2023 HCT 31.2 (L) 06/27/2023 MCV 86.5 06/27/2023 PLT 236 06/27/2023 BMP: Lab Results Component Value Date GLUCOSE 79 06/28/2023 CALCIUM 7.6 (L) 06/28/2023 NA 134 (L) 06/28/2023 K 3.2 (L) 06/28/2023 CO2 23 06/28/2023 CL 107 06/28/2023 BUN 4 (L) 06/28/2023 CREATININE 0.52 06/28/2023 PT/INR: Lab Results Component Value Date INR <0.9 (L) 06/28/2023 PROTIME 9.7 06/28/2023 U/A: UA 26-50 RBC, 15 leukos, nitrite negative Urine Culture: in process Blood Culture: N/A Imaging Studies: See PACs for outside images Assessment and Plan ASSESSMENT: 27 y.o. female with R. Obstructing kidney stone PLAN: - continue medical expulsion therapy tonight and tomorrow - Flomax - maximize fluid hydration - Strain all urine - will discuss possible OR for ureteral stent v. URS/LL v. PNT Friday if stone does not pass or pain is persistent - NPO at midnight; IVFs - Check Ucx - IV Abx, adjust to cx sensitivities - Cr wnl, continue to monitor - Pain/nausea control - Check KUB later tomorrow - Check INR - Page immediately with fevers/hypotension - remainder of care per primary team - follow up outpatient. - urology will continue to follow Al Barakat MD PGY-1 Urology 06/28/23 7:44 AM Images from the original note were not included. Maternal Medicine Service Resident Progress Note 06/28/2023 4:48 AM 06/27/2023 Hospital Day: [address], 27 y.o. 24w3d Patient has been seen and examined. Pt states her pain was overall well controlled overnight. Tolerated PO last night without difficulty. Stated the pyridium was helpful with the pain. Does endorse subjective chills overnight, no fevers. Positive movement Negative vaginal bleeding Negative LOF Negative Contractions Vitals: 06/27/23 1710 06/27/23 1815 06/27/23 1945 06/28/23 0057 BP: 109/68 (!) 101/53 Pulse: 108 92 95 Resp: 16 16 Temp: 36.6 C (97.9 F) 36.6 C (97.9 F) TempSrc: Temporal Temporal SpO2: 96% 99% Weight: 165 lb (74.8 kg) Height: 5' 4 (1.626 m) FHT reviewed overnight FHT: 150, moderate variability Accels: present Decels: absent Contractions: none Physical Exam: Gen: NAD HEENT: Normocephalic, Atraumatic, EOMI, MMM Resp: no increased work of reathing Abd: soft, gravid, NTND, no rebound, no guarding. negative fundal tenderness Ext: No LE edema, no calf tenderness or swelling Medications: Current Facility-Administered Medications Medication Dose Route Frequency Provider Last Rate Last Admin acetaminophen (Tylenol) tablet 650 mg 650 mg Oral q4h PRN Ericka Arrieta, DO 650 mg at 06/27/232030 cefTRIAXone (Rocephin) 1,000 mg in sodium chloride 0.9 % 50 mL IVPB Mini-Bag Plus 1,000 mg IntraVENous q24h Elisabeth Faith, DO Stopped at 06/27/232004 cyclobenzaprine (Flexeril) tablet 5 mg 5 mg Oral TID PRN Elisabeth Faith DO influenza vac subunit quadrivalent (Flucelvax) injection 0.5 mL 0.5 mL IntraMUSCular Once Ericka Arrieta DO lactated Ringer's infusion 100 mL/hr IntraVENous Continuous Elisabeth Faith DO ondansetron ODT (Zofran-ODT) disintegrating tablet 4 mg 4 mg Oral q8h PRN Ericka Arrieta DO Or ondansetron (Zofran) injection 4 mg 4 mg IntraVENous q6h PRN Ericka Arrieta, DO oxyCODONE (Roxicodone) immediate release tablet 5 mg 5 mg Oral q6h PRN Ericka Arrieta, DO 5 mg at 06/27/23 2240 phenazopyridine (Pyridium) tablet 100 mg 100 mg Oral TID PRN Elisabeth Faith, DO 100 mg at 06/28/23 0002 vitamin tablet 1 tablet Oral Daily Ericka Arrieta, DO sodium chloride 0.9 % infusion 5-250 mL/hr IntraVENous PRN Ericka Kontarovich, DO sodium chloride 0.9% (NS) flush 10 mL 10 mL IntraVENous 2 times per day Ericka Kontarovich, DO sodium chloride 0.9% (NS) flush 10 mL 10 mL IntraVENous PRN Ericka Kontarovich, DO tamsulosin (Flomax) 24 hr capsule 0.4 mg 0.4 mg Oral Daily Ericka Kontarovich, DO 0.4 mg at 06/27/237 Assessment/Plan: Donte St is a 27 y.o. female 24w3d Nephrolithiasis - Transport from [place], presented with flank pain and had CT that demonstrated likely 5.5mm obstructing kidney stone - flomax, IVF and tylenol/oxy PRN ordered - Urology consulted, appreciate recs, recommending medical expulsion therapy overnight and today including flomax and fluid hydration with possible surgical intervention Friday if stone does not pass or pain is persistent - Urology planning KUB today - Cr stable and wnl, 0.54 on admission, BMP p - Continue rocephin q24hr - Pain controlled with oral medications overnight Low lying placenta - denies vaginal bleeding Hx PP Depression - no medications - mood stable this AM IUP @ 24w3d - Dating by LMP and 9w5d US - Cephalic 06/27 - Monitoring:CEFM - Diet:General - BMZ deferred Further plan pending d/w attending. Kalyn Benavides MD 06/28/2023, 4:48 AM Associated attestation - Sophia Estevez MD - 06/28/2023 12:20 PM EDT I independently saw and evaluated the patient. I agree with the findings and plan of care as documented in the resident's note. Reports intermittent pain, but currently very mild without any required pain medications. No N/V or vaginal bleeding no contractions 27 at 24 3/7 GA with the following: Nephrolithiasis appreciate urology consult currently very stable and normal creatinine. Continued rocephin and when urine culture is back discuss plan regarding antibiotics Low lying placenta no vaginal bleeding History of pp depression stable no medications Prematurity plan for growth ultrasound on Friday, and no BMZ unless concerns Discussed ongoing observation and off continuous monitoring. Continued IVF and encourage hydration. Hope for conservative management but defer to urology regarding final plan I spent 25 minutes in the visit today on the floor reviewing the chart, discussing the case with the residency staff and nursing Sophia Estevez MD documented in this encounter [facility] 06-29-2023 Note Patient: Donte munguia Procedure Summary Date: 06/29/23 Room / Location: [address] Operating Room Anesthesia Start: 1309 Anesthesia Stop: 1354 Procedure: CYSTOSCOPY WITH URETEROSCOPY WITH LITHOTRIPSY (Right: Ureter) Diagnosis: Nephrolithiasis (Nephrolithiasis [N20.0]) Surgeons: Sarath Meade MD Responsible Provider: Emir Mackenzie MD Anesthesia Type: general ASA Status: 2 Anesthesia Type: general Vitals Value Taken Time BP 120/80 06/29/23 1415 Temp 36.1 ?C (97 ?F) 06/29/23 1355 Pulse 96 06/29/23 1421 Resp 18 06/30/23 0649 SpO2 100 % 06/29/23 1421 Vitals shown include unfiled device data. Anesthesia Post Evaluation Patient location during evaluation: PACU Patient participation: complete - patient participated Level of consciousness: awake and alert Pain management: satisfactory to patient Multimodal analgesia pain management approach Airway patency: patent Two or more strategies used to mitigate risk of obstructive sleep apnea Cardiovascular status: acceptable and hemodynamically stable Respiratory status: acceptable Hydration status: acceptable No notable events documented. MIPS #430 PONV Patient received an inhalational anesthetic (4554F) MIPS # 424 Perioperative Temperature Management Anesthesia time was less than 60 minutes (4256F) MIPS #477 Multimodal Pain Management Not emergent case Patient was administered multimodal pain management (two or more drugs and/or interventions excluding systemic opioids) in the periopeartive period occurring at some time between 6 hours prior to anesthesia start time until discharged from PACU (G2148) MIPS #404 Anesthesiology Smoking Abstinence The patient is not a current smoker (e.g. cigarette, cigar, pipe, e-cigarette/vaping/marijuana) If no stop here (G9644) I completed my handoff to the receiving clinician during which we: 1. Identified the patient 2. Identified the responsible provider 3. Reviewed the pertinent medical history 4. Discussed the surgical course 5. Reviewed intra-op anesthesia management and issues during anesthesia 6. Set expectations for post-procedure period 7. Allowed opportunity for questions and acknowledgement of understanding. [facility] 06-29-2023 Note Patient: Donte munguia Procedure Summary Date: 06/29/23 Room / Location: [address] Operating Room Anesthesia Start: 1309 Anesthesia Stop: 1354 Procedure: CYSTOSCOPY WITH URETEROSCOPY WITH LITHOTRIPSY (Right: Ureter) Diagnosis: Nephrolithiasis (Nephrolithiasis [N20.0]) Surgeons: Sarath Meade MD Responsible Provider: Emir Mackenzie MD Anesthesia Type: general ASA Status: 2 Anesthesia Type: general Vitals Value Taken Time BP 120/80 06/29/23 1415 Temp 36.1 ?C (97 ?F) 06/29/23 1355 Pulse 96 06/29/23 1421 Resp 18 06/30/23 0649 SpO2 100 % 06/29/23 1421 Vitals shown include unfiled device data. Anesthesia Post Evaluation Patient location during evaluation: PACU Patient participation: complete - patient participated Level of consciousness: awake and alert Pain management: satisfactory to patient Multimodal analgesia pain management approach Airway patency: patent Two or more strategies used to mitigate risk of obstructive sleep apnea Cardiovascular status: acceptable and hemodynamically stable Respiratory status: acceptable Hydration status: acceptable No notable events documented. MIPS #430 PONV Patient received an inhalational anesthetic (4554F) MIPS # 424 Perioperative Temperature Management Anesthesia time was less than 60 minutes (4256F) MIPS #477 Multimodal Pain Management Not emergent case Patient was administered multimodal pain management (two or more drugs and/or interventions excluding systemic opioids) in the periopeartive period occurring at some time between 6 hours prior to anesthesia start time until discharged from PACU (G2148) MIPS #404 Anesthesiology Smoking Abstinence The patient is not a current smoker (e.g. cigarette, cigar, pipe, e-cigarette/vaping/marijuana) If no stop here (G9644) I completed my handoff to the receiving clinician during which we: 1. Identified the patient 2. Identified the responsible provider 3. Reviewed the pertinent medical history 4. Discussed the surgical course 5. Reviewed intra-op anesthesia management and issues during anesthesia 6. Set expectations for post-procedure period 7. Allowed opportunity for questions and acknowledgement of understanding. [facility] 06-29-2023 Note Nutrition rescreen c ompleted. Chart reviewed. Patient NPO for procedure. Patient to be monitored and followed by the diet electronics technician apprentice. Dietitian available upon request. JANN Mejia [facility] 06-29-2023 Note Nutrition rescreen c ompleted. Chart reviewed. Patient NPO for procedure. Patient to be monitored and followed by the diet electronics technician apprentice. Dietitian available upon request. JANN Mejia [facility] 06-29-2023 Note Airway Date/Time: 06/29/2023 1:14 PM Urgency: scheduled General Information and Staff Patient location during procedure: Procedural Resident/RISK MANAGEMENT CONSULTANT: COURTNEY Bautista CRNA Performed: RISK MANAGEMENT CONSULTANT Performed by: COURTNEY Bautista CRNA Authorized by: COURTNEY Bautista CRNA Indications and Patient Condition Indications for airway management: anesthesia Sedation level: RSI Preoxygenated: yes Patient position: sniffing MILS maintained throughout Mask difficulty assessment: 1 - vent by mask Final Airway Details Final airway type: endotracheal airway Successful airway: ETT Cuffed: yes Successful intubation technique: video laryngoscopy Endotracheal tube insertion site: oral Blade: Moreno Blade size: #3 ETT size (mm): 7.0 Cormack-Lehane Classification: grade I - full view of glottis Placement verified by: chest auscultation Measured from: teeth ETT to teeth (cm): 22 Number of attempts at approach: 1 [facility] 06-29-2023 Note Airway Date/Time: 06/29/2023 1:14 PM Urgency: scheduled General Information and Staff Patient location during procedure: Procedural Resident/RISK MANAGEMENT CONSULTANT: COURTNEY Bautista CRNA Performed: RISK MANAGEMENT CONSULTANT Performed by: COURTNEY Bautista CRNA Authorized by: COURTNEY Bautista CRNA Indications and Patient Condition Indications for airway management: anesthesia Sedation level: RSI Preoxygenated: yes Patient position: sniffing MILS maintained throughout Mask difficulty assessment: 1 - vent by mask Final Airway Details Final airway type: endotracheal airway Successful airway: ETT Cuffed: yes Successful intubation technique: video laryngoscopy Endotracheal tube insertion site: oral Blade: Moreno Blade size: #3 ETT size (mm): 7.0 Cormack-Lehane Classification: grade I - full view of glottis Placement verified by: chest auscultation Measured from: teeth ETT to teeth (cm): 22 Number of attempts at approach: 1 [facility] 06-29-2023 Note Formatting of this n ote might be different from the original. Pt to floor with OB nurses, nad, resp nonlabored, alert and oriented. Pt denies any pain except for a sore throat [facility] 06-29-2023 Note Formatting of this n ote might be different from the original. Pt to floor with OB nurses, nad, resp nonlabored, alert and oriented. Pt denies any pain except for a sore throat [facility] 06-29-2023 Note Formatting of this n ote might be different from the original. Report called to floor, RN ax 2 to transport pt to room [facility] 06-29-2023 Note Formatting of this n ote might be different from the original. Report called to floor, RN ax 2 to transport pt to room [facility] 06-29-2023 Note Formatting of this n ote might be different from the original. OB nurse at bedside to monitor baby [facility] 06-29-2023 Note Formatting of this n ote might be different from the original. OB nurse at bedside to monitor baby [facility] 06-29-2023 Note Formatting of this n ote might be different from the original. PreOp Dx right ureteral calculus PostOp Dx Same Operation Cystoscopy, retrograde pyelogram, flouroscopy, right ureteroscopy, laser lithotripsy, ureteral stent placement Surgeon Sarath Meade MD Assist None EBL Minimal Drains 6 fr X 26cmJJ Jones none Specimen calculus Condition To PACU This is a 27 y.o. patient who presents with a ureteral calculus. After having a discussion on treatment options, risks and benefits, the patient wishes to proceed forward with surgical intervention Patient was brought to the operating room. A thorough time out was performed and everyone present was in agreement. Patient was placed on OR table. Anesthesia and lines were maintained by the anesthesia team. Patient was placed in the dorsal lithotomy position. Prepped and draped in usual fashion. Pressure points were padded. A cystourethroscope was inserted through the urethra and the bladder was inspected. A sensor wire was advanced to the level of the kidney. A single flouro image was captured to confirm wire position The 6.9fr semirigid ureteroscope was advanced alongside the wire. Care was taken to minimize injury to the ureteral orifice. The stone was able to be visualized. It was laser lithotripsied into numerous small passable fragments. These were basket extracted. One final pass of the ureteroscope did confirm there was no remaining stone. A 12/14 fr ureteral access sheath was advanced over the wire under fluoroscopy. A flexible ureteroscope was passed through the access sheath. The stone was visualized and laser lithotripsied using the holmium laser. The fragments were extracted using the stone basket. A 6 fr X 26cmJJ was advanced over the wire through the cystoscope under fluoroscopic visualization. Once in position the wire was removed. A good curl was noted in the kidney and the bladder via single flouroscopy image The bladder was emptied and patient awoken from anesthesia. [employer] Phone: 06-29-2023 Note Formatting of this n ote might be different from the original. PreOp Dx right ureteral calculus PostOp Dx Same Operation Cystoscopy, retrograde pyelogram, flouroscopy, right ureteroscopy, laser lithotripsy, ureteral stent placement Surgeon Sarath Meade MD Assist None EBL Minimal Drains 6 fr X 26cmJJ Jones none Specimen calculus Condition To PACU This is a 27 y.o. patient who presents with a ureteral calculus. After having a discussion on treatment options, risks and benefits, the patient wishes to proceed forward with surgical intervention Patient was brought to the operating room. A thorough time out was performed and everyone present was in agreement. Patient was placed on OR table. Anesthesia and lines were maintained by the anesthesia team. Patient was placed in the dorsal lithotomy position. Prepped and draped in usual fashion. Pressure points were padded. A cystourethroscope was inserted through the urethra and the bladder was inspected. A sensor wire was advanced to the level of the kidney. A single flouro image was captured to confirm wire position The 6.9fr semirigid ureteroscope was advanced alongside the wire. Care was taken to minimize injury to the ureteral orifice. The stone was able to be visualized. It was laser lithotripsied into numerous small passable fragments. These were basket extracted. One final pass of the ureteroscope did confirm there was no remaining stone. A 12/14 fr ureteral access sheath was advanced over the wire under fluoroscopy. A flexible ureteroscope was passed through the access sheath. The stone was visualized and laser lithotripsied using the holmium laser. The fragments were extracted using the stone basket. A 6 fr X 26cmJJ was advanced over the wire through the cystoscope under fluoroscopic visualization. Once in position the wire was removed. A good curl was noted in the kidney and the bladder via single flouroscopy image The bladder was emptied and patient awoken from anesthesia. [employer] Phone: 06-29-2023 Note Patient: Donte munguia Procedure Information Date/Time: 06/29/23 0900 Procedure: CYSTOSCOPY WITH URETEROSCOPY WITH LITHOTRIPSY (Right: Ureter) Location: [facility] OR [address] [place] [address] Operating Room Surgeons: Sarath Meade MD Relevant Problems /Renal (+) Nephrolithiasis Clinical information reviewed: Tobacco Allergies Meds Problems Med Hx Surg Hx Fam Hx Soc Hx Physical Exam Airway Mallampati: I TM distance: >3 FB Neck ROM: full Mouth Open: normalendotracheal tube not in place Cardiovascular Dental dentition normal Pulmonary Abdominal Anesthesia Plan patient is NPO appropriate Any family history or previous problems with anesthesia no ASA 2 general Any family history or previous problems with anesthesia no The patient is not a current smoker. Anesthetic plan and risks discussed with patient. Additional Equipment Requests [facility] 06-29-2023 Note Patient: Donte munguia Procedure Information Date/Time: 06/29/23 0900 Procedure: CYSTOSCOPY WITH URETEROSCOPY WITH LITHOTRIPSY (Right: Ureter) Location: [facility] OR [address] [place] [address] Operating Room Surgeons: Sarath Meade MD Relevant Problems /Renal (+) Nephrolithiasis Clinical information reviewed: Tobacco Allergies Meds Problems Med Hx Surg Hx Fam Hx Soc Hx Physical Exam Airway Mallampati: I TM distance: >3 FB Neck ROM: full Mouth Open: normalendotracheal tube not in place Cardiovascular Dental dentition normal Pulmonary Abdominal Anesthesia Plan patient is NPO appropriate Any family history or previous problems with anesthesia no ASA 2 general Any family history or previous problems with anesthesia no The patient is not a current smoker. Anesthetic plan and risks discussed with patient. Additional Equipment Requests [facility] 06-28-2023 Note UROLOGY PROGRESS NOTE PATIENT NAME: Donte St DATE OF : 1995 ADMISSION DATE: 06/27/2023 TODAY'S DATE: 06/28/2023 Subjective No acute events overnight. She tolerated fluids up until midnight and then has been NPO since anticipating possible procedure tonight. She denies N/V. She states that her abdominal pain is well controlled. Objective VS: BP 101/62 Pulse 89 Temp 36.6 ?C (97.9 ?F) (Temporal) Resp 16 Ht 5' 4 (1.626 m) Wt 165 lb (74.8 kg) SpO2 97% BMI 28.32 kg/m? I & O - 24hr: I/O last 3 completed shifts: In: - (0 mL/kg) Out: 1550 (20.7 mL/kg) [Urine:1550 (0.6 mL/kg/hr)] Weight: 74.8 kg No intake/output data recorded. Physical Exam: General: Neck: Resp: Abdomen: No acute distress Supple Normal effort, no respiratory distress, on RA Gravid; Soft, non-tender, nondistended : No jones, voiding spontaneously Skin: Skin color, texture, turgor normal, no rashes or lesions Labs and Imaging Studies Labs: CBC: Lab Results Component Value Date WBC 12.6 (H) 06/27/2023 HGB 10.1 (L) 06/27/2023 HCT 31.2 (L) 06/27/2023 MCV 86.5 06/27/2023 PLT 236 06/27/2023 BMP: Lab Results Component Value Date GLUCOSE 79 06/28/2023 CALCIUM 7.6 (L) 06/28/2023 NA 134 (L) 06/28/2023 K 3.2 (L) 06/28/2023 CO2 23 06/28/2023 CL 107 06/28/2023 BUN 4 (L) 06/28/2023 CREATININE 0.52 06/28/2023 PT/INR: Lab Results Component Value Date INR <0.9 (L) 06/28/2023 PROTIME 9.7 06/28/2023 U/A: UA 26-50 RBC, 15 leukos, nitrite negative Urine Culture: in process Blood Culture: N/A Imaging Studies: See PACs for outside images Assessment and Plan ASSESSMENT: 27 y.o. female with R. Obstructing kidney stone PLAN: - continue medical expulsion therapy tonight and tomorrow - Flomax - maximize fluid hydration - Strain all urine - will discuss possible OR for ureteral stent v. URS/LL v. PNT Friday if stone does not pass or pain is persistent - NPO at midnight; IVFs - Check Ucx - IV Abx, adjust to cx sensitivities - Cr wnl, continue to monitor - Pain/nausea control - Check KUB later tomorrow - Check INR - Page immediately with fevers/hypotension - remainder of care per primary team - follow up outpatient. - urology will continue to follow Al Barakat MD PGY-1 Urology 06/28/23 7:44 AM [facility] 06-28-2023 Note UROLOGY PROGRESS NOTE PATIENT NAME: Donte St DATE OF : 1995 ADMISSION DATE: 06/27/2023 TODAY'S DATE: 06/28/2023 Subjective No acute events overnight. She tolerated fluids up until midnight and then has been NPO since anticipating possible procedure tonight. She denies N/V. She states that her abdominal pain is well controlled. Objective VS: BP 101/62 Pulse 89 Temp 36.6 ?C (97.9 ?F) (Temporal) Resp 16 Ht 5' 4 (1.626 m) Wt 165 lb (74.8 kg) SpO2 97% BMI 28.32 kg/m? I & O - 24hr: I/O last 3 completed shifts: In: - (0 mL/kg) Out: 1550 (20.7 mL/kg) [Urine:1550 (0.6 mL/kg/hr)] Weight: 74.8 kg No intake/output data recorded. Physical Exam: General: Neck: Resp: Abdomen: No acute distress Supple Normal effort, no respiratory distress, on RA Gravid; Soft, non-tender, nondistended : No jones, voiding spontaneously Skin: Skin color, texture, turgor normal, no rashes or lesions Labs and Imaging Studies Labs: CBC: Lab Results Component Value Date WBC 12.6 (H) 06/27/2023 HGB 10.1 (L) 06/27/2023 HCT 31.2 (L) 06/27/2023 MCV 86.5 06/27/2023 PLT 236 06/27/2023 BMP: Lab Results Component Value Date GLUCOSE 79 06/28/2023 CALCIUM 7.6 (L) 06/28/2023 NA 134 (L) 06/28/2023 K 3.2 (L) 06/28/2023 CO2 23 06/28/2023 CL 107 06/28/2023 BUN 4 (L) 06/28/2023 CREATININE 0.52 06/28/2023 PT/INR: Lab Results Component Value Date INR <0.9 (L) 06/28/2023 PROTIME 9.7 06/28/2023 U/A: UA 26-50 RBC, 15 leukos, nitrite negative Urine Culture: in process Blood Culture: N/A Imaging Studies: See PACs for outside images Assessment and Plan ASSESSMENT: 27 y.o. female with R. Obstructing kidney stone PLAN: - continue medical expulsion therapy tonight and tomorrow - Flomax - maximize fluid hydration - Strain all urine - will discuss possible OR for ureteral stent v. URS/LL v. PNT Friday if stone does not pass or pain is persistent - NPO at midnight; IVFs - Check Ucx - IV Abx, adjust to cx sensitivities - Cr wnl, continue to monitor - Pain/nausea control - Check KUB later tomorrow - Check INR - Page immediately with fevers/hypotension - remainder of care per primary team - follow up outpatient. - urology will continue to follow Al Barakat MD PGY-1 Urology 06/28/23 7:44 AM [facility] 06-27-2023 Note Attestation signed by Sophia Estevez MD at 06/27/2023 6:35 PM Maternal Medicine attending attestation: I reviewed and agree with the care provided by the resident during or immediately following the visit including the patient's medical history, the resident's findings in the physical exam, patient's diagnosis and treatment plan. Spoke with urology attending about transport and admission, appreciate urology also helping with treatment. No plan for steroids unless concerns for labor. . Department of Maternal Medicine History and Physical CHIEF COMPLAINT: kidney stone HISTORY OF PRESENT ILLNESS: The patient is a 27 y.o. female at 24w4d. OB History 1 Para Term AB Living SAB IAB Ectopic Multiple Live Births Patient presents as a transport from [facility] where she was admitted for flank pain in the setting of a right kidney stone. CT abdomen done today showed a 5.5mm nonobstructing kidney stone, urology was consulted over there and suspects obstruction. She was transferred to [facility] for urologic consultation in the setting of a 24w . Transport: Yes Prior Hospitalizations: No Estimated Due Date: Estimated Date of Delivery: None noted. CARE: Complications: See below PAST OB HISTORY: OB History 1 Para Term AB Living SAB IAB Ectopic Multiple Live Births Detailed OB History TSVD Current Past Medical History: No past medical history on file. Past Surgical History: No past surgical history on file. Allergies: Patient has no allergy information on record. Social History: Social History Socioeconomic History Marital status: Not on file Spouse name: Not on file Number of children: Not on file Years of education: Not on file Highest education level: Not on file Occupational History Not on file Tobacco Use Smoking status: Not on file Smokeless tobacco: Not on file Substance and Sexual Activity Alcohol use: Not on file Drug use: Not on file Sexual activity: Not on file Other Topics Concern Not on file Social History Narrative Not on file Social Determinants of Health Financial Resource Strain: Not on file Food Insecurity: Not on file Transportation Needs: Not on file Physical Activity: Not on file Stress: Not on file Social Connections: Not on file Intimate Partner Violence: Not on file Housing Stability: Not on file Family History: No family history on file. Medications Prior to Admission: No medications prior to admission. REVIEW OF SYSTEMS: Review of Systems Constitutional: Positive for chills. Negative for fever. Gastrointestinal: Negative for abdominal pain. Genitourinary: Positive for difficulty urinating and flank pain. Labs: CBC, BMP, urinalysis, urine culture PHYSICAL EXAM: There were no vitals filed for this visit. General appearance: awake, alert, cooperative, no apparent distress, and appears stated age Neurologic: Awake, alert, oriented to name, place and time. Lungs: No increased work of breathing, good air exchange Abdomen: Soft, non tender, gravid, consistent with her gestational age Sterile Speculum Exam: Membranes: Intact HSV Lesions: not applicable Cervix: visually closed Contraction frequency: none ASSESSMENT AND PLAN: LABOR DELIVERY ??? SCD's ONLY (labor through ambulation) SCD's PLUS Prophylactic Anticoagulation until discharge SCD's PLUS Prophylactic Anticoagulation for 6 weeks SCD's PLUS Therapeutic Anticoagulation for 6 weeks Vaginal Delivery [] BMI ? 40 kg/m2 Delivery All patients Vaginal Delivery [] BMI ? 40 kg/m2 AND [] Antepartum hospitalization ? 72 hours within the past month Delivery 1 Major Risk Factor: [] BMI ? 35 kg/m2 [] Low Risk Thrombophilia [] PPH+RBCs, IR, or operation [] Infection+Antibiotics [] Antepartum hospitalization ? 72 hours within the past month [] PMH: Sickle Cell, SLE, Cardiac Dz, Active IBD, Active Cancer, Nephrotic Syndrome OR 2 Minor Risk Factors: [] Multiple gestation [] Age > 40 [] PPH ? 1,000cc [] (+)FMH of VTE [] Smoker [] Preeclampsia [] BMI ? 40 kg/m2 AND [] Low Risk Thrombophilia OR ANY OF THE FOLLOWING: [] High Risk Thrombophilia without prior VTE [] Low Risk Thrombophilia with (+)FMH of VTE [] Any single prior VTE ANY OF THE FOLLOWING: [] Already on LMWH/UFH [] Multiple prior VTE [] High Risk Thrombophilia with prior VTE Low Risk Thrombophilia: FVL (heterozygous), Prothrombin (heterozygous), Protein C, Protein S High Risk Thrombophilia: FVL (homozygous), Prothrombin (homozygous), FVL+Prot (more content not included)... [facility] 06-27-2023 Note Attestation signed by Sophia Estevez MD at 06/27/2023 6:35 PM Maternal Medicine attending attestation: I reviewed and agree with the care provided by the resident during or immediately following the visit including the patient's medical history, the resident's findings in the physical exam, patient's diagnosis and treatment plan. Spoke with urology attending about transport and admission, appreciate urology also helping with treatment. No plan for steroids unless concerns for labor. . Department of Maternal Medicine History and Physical CHIEF COMPLAINT: kidney stone HISTORY OF PRESENT ILLNESS: The patient is a 27 y.o. female at 24w4d. OB History 1 Para Term AB Living SAB IAB Ectopic Multiple Live Births Patient presents as a transport from [facility] where she was admitted for flank pain in the setting of a right kidney stone. CT abdomen done today showed a 5.5mm nonobstructing kidney stone, urology was consulted over there and suspects obstruction. She was transferred to [facility] for urologic consultation in the setting of a 24w . Transport: Yes Prior Hospitalizations: No Estimated Due Date: Estimated Date of Delivery: None noted. CARE: Complications: See below PAST OB HISTORY: OB History 1 Para Term AB Living SAB IAB Ectopic Multiple Live Births Detailed OB History TSVD Current Past Medical History: No past medical history on file. Past Surgical History: No past surgical history on file. Allergies: Patient has no allergy information on record. Social History: Social History Socioeconomic History Marital status: Not on file Spouse name: Not on file Number of children: Not on file Years of education: Not on file Highest education level: Not on file Occupational History Not on file Tobacco Use Smoking status: Not on file Smokeless tobacco: Not on file Substance and Sexual Activity Alcohol use: Not on file Drug use: Not on file Sexual activity: Not on file Other Topics Concern Not on file Social History Narrative Not on file Social Determinants of Health Financial Resource Strain: Not on file Food Insecurity: Not on file Transportation Needs: Not on file Physical Activity: Not on file Stress: Not on file Social Connections: Not on file Intimate Partner Violence: Not on file Housing Stability: Not on file Family History: No family history on file. Medications Prior to Admission: No medications prior to admission. REVIEW OF SYSTEMS: Review of Systems Constitutional: Positive for chills. Negative for fever. Gastrointestinal: Negative for abdominal pain. Genitourinary: Positive for difficulty urinating and flank pain. Labs: CBC, BMP, urinalysis, urine culture PHYSICAL EXAM: There were no vitals filed for this visit. General appearance: awake, alert, cooperative, no apparent distress, and appears stated age Neurologic: Awake, alert, oriented to name, place and time. Lungs: No increased work of breathing, good air exchange Abdomen: Soft, non tender, gravid, consistent with her gestational age Sterile Speculum Exam: Membranes: Intact HSV Lesions: not applicable Cervix: visually closed Contraction frequency: none ASSESSMENT AND PLAN: LABOR DELIVERY ??? SCD's ONLY (labor through ambulation) SCD's PLUS Prophylactic Anticoagulation until discharge SCD's PLUS Prophylactic Anticoagulation for 6 weeks SCD's PLUS Therapeutic Anticoagulation for 6 weeks Vaginal Delivery [] BMI ? 40 kg/m2 Delivery All patients Vaginal Delivery [] BMI ? 40 kg/m2 AND [] Antepartum hospitalization ? 72 hours within the past month Delivery 1 Major Risk Factor: [] BMI ? 35 kg/m2 [] Low Risk Thrombophilia [] PPH+RBCs, IR, or operation [] Infection+Antibiotics [] Antepartum hospitalization ? 72 hours within the past month [] PMH: Sickle Cell, SLE, Cardiac Dz, Active IBD, Active Cancer, Nephrotic Syndrome OR 2 Minor Risk Factors: [] Multiple gestation [] Age > 40 [] PPH ? 1,000cc [] (+)FMH of VTE [] Smoker [] Preeclampsia [] BMI ? 40 kg/m2 AND [] Low Risk Thrombophilia OR ANY OF THE FOLLOWING: [] High Risk Thrombophilia without prior VTE [] Low Risk Thrombophilia with (+)FMH of VTE [] Any single prior VTE ANY OF THE FOLLOWING: [] Already on LMWH/UFH [] Multiple prior VTE [] High Risk Thrombophilia with prior VTE Low Risk Thrombophilia: FVL (heterozygous), Prothrombin (heterozygous), Protein C, Protein S High Risk Thrombophilia: FVL (homozygous), Prothrombin (homozygous), FVL+Prot (more content not included)... [facility] 06-27-2023 Consult note Associated Order (s): IP CONSULT TO UROLOGY Urology Inpatient Consultation 06/27/2023 HISTORY OF PRESENT ILLNESS: The patient is a 27 y.o. female with no significant past medical history who is transferred as a direct admit from [place] for right abdominal pain. She states that she initially had pain that started last Friday, localized to her right side. Since that time, it has been intermittent. She went in for evaluation where an US showed 2 non-obstructing stones. A urologist evaluated her at that time and considering her pain had resolved, she was sent home with outpatient follow up. Then, this past Wednesday she had recurrence of intense pain on that R. Side. She called her urologist who wanted her to come in for evaluation. She states that she pent the night in L&D and got another US which re-demonstrated the stones. Again, her pain resolved, so she was sent home. She has been filtering her urine at home and has noticed some sediments that she describes as sand like. Then, this morning she woke up again in pain. Additionally, she endorses nauesa, vomiting, and chills, and weak stream and difficulty to initiate voiding. The patient denies hematuria. On evaluation, they are AF and HDS. Labs are outlined below. Per outside report, a CTAP w/ IV contrast was collected at the outside hospital which shows 5.5mm obstructing kidney stone. Urology consulted for evaluation and management. ED/Hospital workup Cr 0.54 WBC 12.6 HGB 10.1 UA 26-50 RBC, 15 leukos, nitrite negative Ucx (p) PAST MEDICAL HISTORY: Past Medical History: Diagnosis Date Kidney stone depression PAST SURGICAL HISTORY: History reviewed. No pertinent surgical history. ALLERGIES: Allergies Allergen Reactions Clindamycin Macrobid [Nitrofurantoin] Hives Amoxicillin Rash HOME MEDICATIONS: Medications Prior to Admission Medication Sig Dispense Refill Last Dose acetaminophen (Tylenol) 500 MG tablet Take 1,000 mg by mouth every 6 hours as needed for mild pain (1-3). 06/27/2023 oxyCODONE (Roxicodone) 5 MG immediate release tablet Take 5 mg by mouth every 4 hours as needed for severe pain (7-10). 06/27/2023 at 1000 Vit-Fe Fumarate-FA ( VITAMINS PO) Take 1 tablet by mouth daily. 06/27/2023 prochlorperazine (Compazine) 5 MG tablet Take 5 mg by mouth every 8 hours as needed for nausea or vomiting. 06/27/2023 at 0600 FAMILY HISTORY: No family history on file. Social History: Social History Tobacco Use Smoking Status Never Smokeless Tobacco Never Social History Substance and Sexual Activity Alcohol Use Not Currently ROS: Constitutional: negative for chills and fevers HEENT: no blurry vision or eye redness Respiratory: negative for hemoptysis and shortness of breath Cardiovascular: negative for dyspnea and syncope Gastrointestinal: negative for jaundice, nausea and vomiting Genitourinary: see HPI Hematologic/lymphatic: negative for bleeding Integumentary: no new bruises or lesions Musculoskeletal:negative for muscle weakness Neurological: negative for coordination problems and seizures All other systems negative PHYSICAL EXAM: VITALS: Vitals: 06/27/23 1655 06/27/23 1700 06/27/23 1705 06/27/23 1710 BP: Pulse: 100 103 103 108 Resp: Temp: TempSrc: SpO2: General: Alert, in no acute distress Head: Normocephalic, atraumatic Neck: supple, trachea is midline, no obvious masses Respiratory: normal effort, no audible wheezes Cardiovascular: regular pulse and no cyanosis Musculoskeletal: moving all extremities, normal tone Skin: warm and dry Psych: normal mood and affect, oriented Abdomen: gravid, soft, non distended, non tender, no organomegaly, no hernias : Right flank/CVA TTP, L flank NTTP, no suprapubic ttp DATA: LABS: BMP: Lab Results Component Value Date NA 133 (L) 06/27/2023 K 3.7 06/27/2023 CL 111 (H) 06/27/2023 CO2 13 (L) 06/27/2023 BUN 4 (L) 06/27/2023 CREATININE 0.54 06/27/2023 CALCIUM 7.4 (L) 06/27/2023 GLUCOSE 85 06/27/2023 CBC: Lab Results Component Value Date WBC 12.6 (H) 06/27/2023 HGB 10.1 (L) 06/27/2023 HCT 31.2 (L) 06/27/2023 MCV 86.5 06/27/2023 PLT 236 06/27/2023 Urinalysis: No results found for: UA Urine Culture: No components found for: UCX RADIOLOGY: - uploaded in PACS No image results found. IMPRESSION: 27 y.o. female with R. Obstructing kidney stone PLAN: - labs and imaging reviewed - no acute need for urologic surgical intervention at this time - Admit to OB - Medical expulsion therapy tonight and tomorrow - Flomax - maximize fluid hydration - Strain all urine - will discuss possible OR for ureteral stent v. URS/LL v. PNT Friday if stone does not pass or pain is persistent - Check Ucx - IV Abx, adjust to cx sensitivities - Cr wnl, continue to monitor - Pain/nausea control - Check KUB later tomorrow - Check INR - Page immediately with fevers/hypotension - remainder of care per primary team - follow up outpatient. - urology will continue to follow Al Barakat MD 06/27/2023 6:10 PM Associated attestation - Sarath Meade MD - 06/28/2023 12:04 PM EDT I saw and evaluated the patient, participating in the sepulveda portions of the service. I reviewed the resident s note. I agree with the resident s findings and plan. Right sided stone with hydro and obstruction Pain improved overnight Denies passing stone NPO after midnight, may need laser lithotripsy and stent tomorrow Ureteroscopy I discussed the procedure of ureteroscopy. I discussed the risks, benefits and alternatives to this. I discussed the possible complications which could include bleeding, infection and stricture disease. I discussed the possible need for stenting. I explained the need for stent and duration will be determined at that time of surgery. A string may be left. I explained laser lithotripsy as well. I explained this and compared and contrasted it to other procedures such as ESWL and PCNL. She understands this and wishes to proceed forward. Sarath Meade MD [facility] 06-27-2023 Consult note Associated Order (s): IP CONSULT TO UROLOGY Urology Inpatient Consultation 06/27/2023 HISTORY OF PRESENT ILLNESS: The patient is a 27 y.o. female with no significant past medical history who is transferred as a direct admit from [place] for right abdominal pain. She states that she initially had pain that started last Friday, localized to her right side. Since that time, it has been intermittent. She went in for evaluation where an US showed 2 non-obstructing stones. A urologist evaluated her at that time and considering her pain had resolved, she was sent home with outpatient follow up. Then, this past Friday she had recurrence of intense pain on that R. Side. She called her urologist who wanted her to come in for evaluation. She states that she pent the night in L&D and got another US which re-demonstrated the stones. Again, her pain resolved, so she was sent home. She has been filtering her urine at home and has noticed some sediments that she describes as sand like. Then, this morning she woke up again in pain. Additionally, she endorses nauesa, vomiting, and chills, and weak stream and difficulty to initiate voiding. The patient denies hematuria. On evaluation, they are AF and HDS. Labs are outlined below. Per outside report, a CTAP w/ IV contrast was collected at the outside hospital which shows 5.5mm obstructing kidney stone. Urology consulted for evaluation and management. ED/Hospital workup Cr 0.54 WBC 12.6 HGB 10.1 UA 26-50 RBC, 15 leukos, nitrite negative Ucx (p) PAST MEDICAL HISTORY: Past Medical History: Diagnosis Date Kidney stone depression PAST SURGICAL HISTORY: History reviewed. No pertinent surgical history. ALLERGIES: Allergies Allergen Reactions Clindamycin Macrobid [Nitrofurantoin] Hives Amoxicillin Rash HOME MEDICATIONS: Medications Prior to Admission Medication Sig Dispense Refill Last Dose acetaminophen (Tylenol) 500 MG tablet Take 1,000 mg by mouth every 6 hours as needed for mild pain (1-3). 06/27/2023 oxyCODONE (Roxicodone) 5 MG immediate release tablet Take 5 mg by mouth every 4 hours as needed for severe pain (7-10). 06/27/2023 at 1000 Vit-Fe Fumarate-FA ( VITAMINS PO) Take 1 tablet by mouth daily. 06/27/2023 prochlorperazine (Compazine) 5 MG tablet Take 5 mg by mouth every 8 hours as needed for nausea or vomiting. 06/27/2023 at 0600 FAMILY HISTORY: No family history on file. Social History: Social History Tobacco Use Smoking Status Never Smokeless Tobacco Never Social History Substance and Sexual Activity Alcohol Use Not Currently ROS: Constitutional: negative for chills and fevers HEENT: no blurry vision or eye redness Respiratory: negative for hemoptysis and shortness of breath Cardiovascular: negative for dyspnea and syncope Gastrointestinal: negative for jaundice, nausea and vomiting Genitourinary: see HPI Hematologic/lymphatic: negative for bleeding Integumentary: no new bruises or lesions Musculoskeletal:negative for muscle weakness Neurological: negative for coordination problems and seizures All other systems negative PHYSICAL EXAM: VITALS: Vitals: 06/27/23 1655 06/27/23 1700 06/27/23 1705 06/27/23 1710 BP: Pulse: 100 103 103 108 Resp: Temp: TempSrc: SpO2: General: Alert, in no acute distress Head: Normocephalic, atraumatic Neck: supple, trachea is midline, no obvious masses Respiratory: normal effort, no audible wheezes Cardiovascular: regular pulse and no cyanosis Musculoskeletal: moving all extremities, normal tone Skin: warm and dry Psych: normal mood and affect, oriented Abdomen: gravid, soft, non distended, non tender, no organomegaly, no hernias : Right flank/CVA TTP, L flank NTTP, no suprapubic ttp DATA: LABS: BMP: Lab Results Component Value Date NA 133 (L) 06/27/2023 K 3.7 06/27/2023 CL 111 (H) 06/27/2023 CO2 13 (L) 06/27/2023 BUN 4 (L) 06/27/2023 CREATININE 0.54 06/27/2023 CALCIUM 7.4 (L) 06/27/2023 GLUCOSE 85 06/27/2023 CBC: Lab Results Component Value Date WBC 12.6 (H) 06/27/2023 HGB 10.1 (L) 06/27/2023 HCT 31.2 (L) 06/27/2023 MCV 86.5 06/27/2023 PLT 236 06/27/2023 Urinalysis: No results found for: UA Urine Culture: No components found for: UCX RADIOLOGY: - uploaded in PACS No image results found. IMPRESSION: 27 y.o. female with R. Obstructing kidney stone PLAN: - labs and imaging reviewed - no acute need for urologic surgical intervention at this time - Admit to OB - Medical expulsion therapy tonight and tomorrow - Flomax - maximize fluid hydration - Strain all urine - will discuss possible OR for ureteral stent v. URS/LL v. PNT Friday if stone does not pass or pain is persistent - Check Ucx - IV Abx, adjust to cx sensitivities - Cr wnl, continue to monitor - Pain/nausea control - Check KUB later tomorrow - Check INR - Page immediately with fevers/hypotension - remainder of care per primary team - follow up outpatient. - urology will continue to follow Al Barakat MD 06/27/2023 6:10 PM Associated attestation - Sarath Meade MD - 06/28/2023 12:04 PM EDT I saw and evaluated the patient, participating in the sepulveda portions of the service. I reviewed the resident s note. I agree with the resident s findings and plan. Right sided stone with hydro and obstruction Pain improved overnight Denies passing stone NPO after midnight, may need laser lithotripsy and stent tomorrow Ureteroscopy I discussed the procedure of ureteroscopy. I discussed the risks, benefits and alternatives to this. I discussed the possible complications which could include bleeding, infection and stricture disease. I discussed the possible need for stenting. I explained the need for stent and duration will be determined at that time of surgery. A string may be left. I explained laser lithotripsy as well. I explained this and compared and contrasted it to other procedures such as ESWL and PCNL. She understands this and wishes to proceed forward. Sarath Meade MD documented in this encounter [facility] 06-27-2023 History and physical note Department of Maternal Medicine History and Physical CHIEF COMPLAINT: kidney stone HISTORY OF PRESENT ILLNESS: The patient is a 27 y.o. female at 24w4d. OB History 1 Para Term AB Living SAB IAB Ectopic Multiple Live Births Patient presents as a transport from [facility] where she was admitted for flank pain in the setting of a right kidney stone. CT abdomen done today showed a 5.5mm nonobstructing kidney stone, urology was consulted over there and suspects obstruction. She was transferred to [facility] for urologic consultation in the setting of a 24w . Transport: Yes Prior Hospitalizations: No Estimated Due Date: Estimated Date of Delivery: None noted. CARE: Complications: See below PAST OB HISTORY: OB History 1 Para Term AB Living SAB IAB Ectopic Multiple Live Births Detailed OB History TSVD Current Past Medical History: No past medical history on file. Past Surgical History: No past surgical history on file. Allergies: Patient has no allergy information on record. Social History: Social History Socioeconomic History Marital status: Not on file Spouse name: Not on file Number of children: Not on file Years of education: Not on file Highest education level: Not on file Occupational History Not on file Tobacco Use Smoking status: Not on file Smokeless tobacco: Not on file Substance and Sexual Activity Alcohol use: Not on file Drug use: Not on file Sexual activity: Not on file Other Topics Concern Not on file Social History Narrative Not on file Social Determinants of Health Financial Resource Strain: Not on file Food Insecurity: Not on file Transportation Needs: Not on file Physical Activity: Not on file Stress: Not on file Social Connections: Not on file Intimate Partner Violence: Not on file Housing Stability: Not on file Family History: No family history on file. Medications Prior to Admission: No medications prior to admission. REVIEW OF SYSTEMS: Review of Systems Constitutional: Positive for chills. Negative for fever. Gastrointestinal: Negative for abdominal pain. Genitourinary: Positive for difficulty urinating and flank pain. Labs: CBC, BMP, urinalysis, urine culture PHYSICAL EXAM: There were no vitals filed for this visit. General appearance: awake, alert, cooperative, no apparent distress, and appears stated age Neurologic: Awake, alert, oriented to name, place and time. Lungs: No increased work of breathing, good air exchange Abdomen: Soft, non tender, gravid, consistent with her gestational age Sterile Speculum Exam: Membranes: Intact HSV Lesions: not applicable Cervix: visually closed Contraction frequency: none ASSESSMENT AND PLAN: LABOR DELIVERY ??? SCD's ONLY (labor through ambulation) SCD's PLUS Prophylactic Anticoagulation until discharge SCD's PLUS Prophylactic Anticoagulation for 6 weeks SCD's PLUS Therapeutic Anticoagulation for 6 weeks Vaginal Delivery [] BMI ? 40 kg/m2 Delivery All patients Vaginal Delivery [] BMI ? 40 kg/m2 AND [] Antepartum hospitalization ? 72 hours within the past month Delivery 1 Major Risk Factor: [] BMI ? 35 kg/m2 [] Low Risk Thrombophilia [] PPH+RBCs, IR, or operation [] Infection+Antibiotics [] Antepartum hospitalization ? 72 hours within the past month [] PMH: Sickle Cell, SLE, Cardiac Dz, Active IBD, Active Cancer, Nephrotic Syndrome OR 2 Minor Risk Factors: [] Multiple gestation [] Age > 40 [] PPH ? 1,000cc [] (+)FMH of VTE [] Smoker [] Preeclampsia [] BMI ? 40 kg/m2 AND [] Low Risk Thrombophilia OR ANY OF THE FOLLOWING: [] High Risk Thrombophilia without prior VTE [] Low Risk Thrombophilia with (+)FMH of VTE [] Any single prior VTE ANY OF THE FOLLOWING: [] Already on LMWH/UFH [] Multiple prior VTE [] High Risk Thrombophilia with prior VTE Low Risk Thrombophilia: FVL (heterozygous), Prothrombin (heterozygous), Protein C, Protein S High Risk Thrombophilia: FVL (homozygous), Prothrombin (homozygous), FVL+Prothrombin (heterozygous), Antithrombin III, APLS VTE Prophylaxis: Not Indicated Admission: Admit to Antepartum (PNU) FHR: pending on admission Labs: GBS not obtained GC/CT not obtained Urine collected FFN not obtained Type&Screen collected Serum Labs CBC, BMP Consults: MFM, urology Imaging: Not indicated Diet: General Testing: TBD Timing and Route of Delivery: TBD Medications: Neuroprotection Not indicated Tocolysis Not indicated Antibiotics Not indicated Steroids: Betamethasone - not indicated Nephrolithiasis - presented to [facility] with flank pain, initial renal ultrasound showed mild hydronephrosis but no stone. 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 Hermelinda De La Fuente MD 06/27/2023, 4:23 PM Cc: Christiano Arce MD Associated attestation - Sophia Estevez MD - 06/27/2023 6:35 PM EDT Maternal Medicine attending attestation: I reviewed and agree with the care provided by the resident during or immediately following the visit including the patient's medical history, the resident's findings in the physical exam, patient's diagnosis and treatment plan. Spoke with urology attending about transport and admission, appreciate urology also helping with treatment. No plan for steroids unless concerns for labor. . [facility] 06-27-2023 History and physical note Department of Maternal Medicine History and Physical CHIEF COMPLAINT: kidney stone HISTORY OF PRESENT ILLNESS: The patient is a 27 y.o. female at 24w4d. OB History 1 Para Term AB Living SAB IAB Ectopic Multiple Live Births Patient presents as a transport from [facility] where she was admitted for flank pain in the setting of a right kidney stone. CT abdomen done today showed a 5.5mm nonobstructing kidney stone, urology was consulted over there and suspects obstruction. She was transferred to [facility] for urologic consultation in the setting of a 24w . Transport: Yes Prior Hospitalizations: No Estimated Due Date: Estimated Date of Delivery: None noted. CARE: Complications: See below PAST OB HISTORY: OB History 1 Para Term AB Living SAB IAB Ectopic Multiple Live Births Detailed OB History TSVD Current Past Medical History: No past medical history on file. Past Surgical History: No past surgical history on file. Allergies: Patient has no allergy information on record. Social History: Social History Socioeconomic History Marital status: Not on file Spouse name: Not on file Number of children: Not on file Years of education: Not on file Highest education level: Not on file Occupational History Not on file Tobacco Use Smoking status: Not on file Smokeless tobacco: Not on file Substance and Sexual Activity Alcohol use: Not on file Drug use: Not on file Sexual activity: Not on file Other Topics Concern Not on file Social History Narrative Not on file Social Determinants of Health Financial Resource Strain: Not on file Food Insecurity: Not on file Transportation Needs: Not on file Physical Activity: Not on file Stress: Not on file Social Connections: Not on file Intimate Partner Violence: Not on file Housing Stability: Not on file Family History: No family history on file. Medications Prior to Admission: No medications prior to admission. REVIEW OF SYSTEMS: Review of Systems Constitutional: Positive for chills. Negative for fever. Gastrointestinal: Negative for abdominal pain. Genitourinary: Positive for difficulty urinating and flank pain. Labs: CBC, BMP, urinalysis, urine culture PHYSICAL EXAM: There were no vitals filed for this visit. General appearance: awake, alert, cooperative, no apparent distress, and appears stated age Neurologic: Awake, alert, oriented to name, place and time. Lungs: No increased work of breathing, good air exchange Abdomen: Soft, non tender, gravid, consistent with her gestational age Sterile Speculum Exam: Membranes: Intact HSV Lesions: not applicable Cervix: visually closed Contraction frequency: none ASSESSMENT AND PLAN: LABOR DELIVERY ??? SCD's ONLY (labor through ambulation) SCD's PLUS Prophylactic Anticoagulation until discharge SCD's PLUS Prophylactic Anticoagulation for 6 weeks SCD's PLUS Therapeutic Anticoagulation for 6 weeks Vaginal Delivery [] BMI ? 40 kg/m2 Delivery All patients Vaginal Delivery [] BMI ? 40 kg/m2 AND [] Antepartum hospitalization ? 72 hours within the past month Delivery 1 Major Risk Factor: [] BMI ? 35 kg/m2 [] Low Risk Thrombophilia [] PPH+RBCs, IR, or operation [] Infection+Antibiotics [] Antepartum hospitalization ? 72 hours within the past month [] PMH: Sickle Cell, SLE, Cardiac Dz, Active IBD, Active Cancer, Nephrotic Syndrome OR 2 Minor Risk Factors: [] Multiple gestation [] Age > 40 [] PPH ? 1,000cc [] (+)FMH of VTE [] Smoker [] Preeclampsia [] BMI ? 40 kg/m2 AND [] Low Risk Thrombophilia OR ANY OF THE FOLLOWING: [] High Risk Thrombophilia without prior VTE [] Low Risk Thrombophilia with (+)FMH of VTE [] Any single prior VTE ANY OF THE FOLLOWING: [] Already on LMWH/UFH [] Multiple prior VTE [] High Risk Thrombophilia with prior VTE Low Risk Thrombophilia: FVL (heterozygous), Prothrombin (heterozygous), Protein C, Protein S High Risk Thrombophilia: FVL (homozygous), Prothrombin (homozygous), FVL+Prothrombin (heterozygous), Antithrombin III, APLS VTE Prophylaxis: Not Indicated Admission: Admit to Antepartum (PNU) FHR: pending on admission Labs: GBS not obtained GC/CT not obtained Urine collected FFN not obtained Type&Screen collected Serum Labs CBC, BMP Consults: MFM, urology Imaging: Not indicated Diet: General Testing: TBD Timing and Route of Delivery: TBD Medications: Neuroprotection Not indicated Tocolysis Not indicated Antibiotics Not indicated Steroids: Betamethasone - not indicated Nephrolithiasis - presented to [facility] with flank pain, initial renal ultrasound showed mild hydronephrosis but no stone. 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 Hermelinda De La Fuente MD 06/27/2023, 4:23 PM Cc: Christiano Arce MD Associated attestation - Sophia Estevez MD - 06/27/2023 6:35 PM EDT Maternal Medicine attending attestation: I reviewed and agree with the care provided by the resident during or immediately following the visit including the patient's medical history, the resident's findings in the physical exam, patient's diagnosis and treatment plan. Spoke with urology attending about transport and admission, appreciate urology also helping with treatment. No plan for steroids unless concerns for labor. . documented in this encounter [facility] documented in this encounter [facility]* Diagnosis Calculus, ureter- Primary Calculus of ureter 26 weeks gestation of documented in this encounter [facility] Summary Purpose Family History No Family History Records FoundNo Family History Records FoundNo Family History Records FoundNo Family History Records FoundNo Family History Records Found Advance Directives No Advanced Directives Records FoundLatest Code Status on File Code Status Date Activated Date Inactivated Comments Full Code 06/27/2023 4:13 PM 06/30/2023 5:20 PM Additional Source Comments INFORMATION SOURCE (unrecogn ized section and content) DATE CREATED AUTHOR AUTHOR'S ORGANIZ ATION 10/22/2022 [facility] DATE CREATED AUTHOR AUTHOR'S ORGANIZ ATION 06/30/2023 [facility] DATE CREATED AUTHOR AUTHOR'S ORGANIZ ATION 07/13/2023 [facility] DATE CREATED AUTHOR AUTHOR'S ORGANIZ ATION 07/21/2023 [facility] Reason for Visit (unrecogniz ed section and content) Specialty Diagnoses / Procedures Referred By Gibran hutchins Referred To Contact Diagnoses Nephrolithiasis Procedures .. Sophia Estevez MD [address] [place] [address] [facility] [address] [place] [address] Referral ID Status Reason Start Date Expiration Date Visits Re quested Visits Authorized [id number] 1 Reason Onset Date Comments Post-op 06/30/2023 Reason Comments Procedure Cystoscopy, Stent re moval, Pt states stent discomfort - hx nephrolithiasis Scheduled Active and Recently Administ ered Medications (unrecognized section and content) Continuous Medication Order 06/28/2023 06/29/2023 06/30/2023 lactated Ringer's infusion 100 mL/hr, IntraVENous, Continuous, Starting on 06/28/23 at 0430 0430 (Rate/Dose Verify - Provider: Millie Clifford, KARIE)0528 (New Bag - Provider: Millie Clifford RN)1459 (New Bag - Provider: Annette Ortiz RN) 0114 (New Bag - Provider: Danuta Payton RN)1308 (Continued by Anesthesia - Provider: COURNTEY Bautista CRNA)1308 (Paused - Provider: COURTNEY Bautista CRNA - Comment: Switch to gravity)1309 (New Bag - Provider: Ruy Henson APRN - RISK MANAGEMENT CONSULTANT)1354 (Anesthesia Volume Adjustment - Provider: Ruy Henson APRN - JACOBY)1931 (Stopped - Provider: Terra Garcia RN - Comment: pt eating and drinking normally) PRN Medication Order 06/28/2023 06/29/2023 06/30/2023 acetaminophen (Tylenol) tablet 650 mg 650 mg, Oral, Every 4 hours PRN, mild pain (1-3), Fever GREATER than 100.5 F (38 C), Starting on Fri06/27/23 at 1611, Maximum dose of acetaminophen is 4000 mg from all sources in 24 hours. 0527 (Given - Provider: Millie Clifford RN)0932 (Given - Provider: Annette Ortiz RN)1333 (Given - Provider: Annette Ortiz RN)1738 (Given - Provider: Annette Ortiz RN)2119 (Given - Provider: Danuta Payton RN) 0101 (Given - Provider: Danuta Payton RN)0758 (Given - Provider: Annette Ortiz RN)1309 (MAR Hold - Provider: Automatic Transfer Provider - Reason: Patient not available)1439 (MAR Unhold - Provider: Automatic Transfer Provider)1524 (Given - Provider: Annette Ortiz RN) 0215 (Given - Provider: Amna Flaherty RN) cyclobenzaprine (Flexeril) tablet 5 mg 5 mg, Oral, 3 times daily PRN, muscle spasms, Starting on 06/28/23 at 0423 1133 (Given - Provider: Anntete Ortiz RN)1943 (Given - Provider: Danuta Payton RN) 0336 (Given - Provider: Danuta Payton RN)1309 (MAR Hold - Provider: Automatic Transfer Provider - Reason: Patient not available)1439 (MAR Unhold - Provider: Automatic Transfer Provider) docusate sodium (Colace) capsule 100 mg 100 mg, Oral, Daily PRN, constipation, Starting on Fri06/29/23 at 2215, Do not crush or break. 2226 (Given - Provider: Terra Garcia, KARIE) ondansetron (Zofran) injection 4 mg(Linked Group 1) 4 mg, IntraVENous, Every 6 hours PRN, nausea, vomiting, Starting on Fri06/27/23 at 1611, 1st Line. Give IV if patient is unable to take orally. If inadequate response within 60 minutes, proceed to next-line agent or contact provider if no further options ordered. 1940 (See Alternative - Provider: Danuta Payton RN) 1309 ([facility] Hold - Provider: Automatic Transfer Provider - Reason: Patient not available)1439 ([facility] Unhold - Provider: Automatic Transfer Provider) ondansetron ODT (Zofran-ODT) disintegrating tablet 4 mg(Linked Group 1) 4 mg, Oral, Every 8 hours PRN, nausea, vomiting, Starting on Fri06/27/23 at 1611, 1st Line. If inadequate response within 60 minutes, proceed to next-line agent or contact provider if no further options ordered. Patient should allow tablet to dissolve on tongue. Do not remove from blister pack until just before administering. 1940 (Given - Provider: Danuta Payton RN) 130 ([facility] Hold - Provider: Automatic Transfer Provider - Reason: Patient not available)1439 ([facility] Unhold - Provider: Automatic Transfer Provider) oxyCODONE (Roxicodone) immediate release tablet 5 mg 5 mg, Oral, Every 6 hours PRN, moderate pain (4-6), severe pain (7-10), Starting on Fri06/27/23 at 1612 1526 (Given - Provider: Annette Ortiz RN) 1309 ([facility] Hold - Provider: Automatic Transfer Provider - Reason: Patient not available)1439 ([facility] Unhold - Provider: Automatic Transfer Provider) phenazopyridine (Pyridium) tablet 100 mg 100 mg, Oral, 3 times daily PRN, bladder spasms, Starting on Fri06/27/23 at 2304 0002 (Given - Provider: Millie Clifford, RN)0551 (Given - Provider: Millie Clifford, RN)1459 (Given - Provider: Annette Ortiz, RN) 0103 (Given - Provider: Danuta Payton RN)1309 ([facility] Hold - Provider: Automatic Transfer Provider - Reason: Patient not available)1439 ([facility] Unhold - Provider: Automatic Transfer Provider)1836 (Given - Provider: Annette Ortiz, RN) sodium chloride 0.9 % infusion 5-250 mL/hr, IntraVENous, PRN, if patient receiving piggyback infusions and maintenance fluids are not ordered OR KVO fluids to protect IV site / prevent frequent line interruptions/ long duration, Starting on Fri06/27/23 at 1611, For piggyback infusion, administer at same rate as piggyback for a total of 25 mL. Enter 25 mL into dose field and piggyback rate into rate field of order. If piggyback is infusing at a rate less than 100 mL/hr, enter 25 mL into dose field and 100 mL/hr into rate field of order. For KVO fluids, enter rate of 20 mL/hr or less into rate field of order. 1309 ([facility] Hold - Provider: Automatic Transfer Provider - Reason: Patient not available)1439 ([facility] Unhold - Provider: Automatic Transfer Provider) sodium chloride 0.9 % irrigation solution (CANCELED) As needed, Starting on Fri06/29/23 at 1321, Intraprocedure 1321 (Given - Provider: Sarath Meade MD) sodium chloride 0.9% (NS) flush 10 mL 10 mL, IntraVENous, PRN, line care, Starting on Fri06/27/23 at 1611, After every IV line use 1309 ([facility] Hold - Provider: Automatic Transfer Provider - Reason: Patient not available)1439 ([facility] Unhold - Provider: Automatic Transfer Provider) sterile water irrigation solution (CANCELED) As needed, Starting on Fri06/29/23 at 1321, Intraprocedure 1321 (Given - Provider: Sarath Meade MD) Linked Groups Order Group 1: ondansetron ODT (Zofran-ODT) disintegrating tablet 4 mgJump to med 4 mg, Oral, Every 8 hours PRN, nausea, vomiting, Starting on Fri06/27/23 at 1611, 1st Line. If inadequate response within 60 minutes, proceed to next-line agent or contact provider if no further options ordered. Patient should allow tablet to dissolve on tongue. Do not remove from blister pack until just before administering. Or ondansetron (Zofran) injection 4 mgJump to med 4 mg, IntraVENous, Every 6 hours PRN, nausea, vomiting, Starting on Fri06/27/23 at 1611, 1st Line. Give IV if patient is unable to take orally. If inadequate response within 60 minutes, proceed to next-line agent or contact provider if no further options ordered. Care Teams (unrecognized sec tion and content) Sheet Manufacturing Supervisor Relationship Specialty Start Date End Date Sarath Meade MD [address] [place] [address] Surgeon Urology 06/29/23 Sheet Manufacturing Supervisor Relationship Specialty Start Date End Date José Manuel Espinoza MD [address] [facility] [address] [id number] PCP - General Family Medicine 07/11/23 Sarath Meade MD [address] [place] [address] Surgeon Urology 06/29/23 Greyson Davis MD [address] [place] [id number] Surgeon Urology 07/11/23 FOR RECORDS PERTAINING TO PATIENTS WHO ARE OR HAVE BEEN ENROLLED IN A CHEMICAL DEPENDENCY/SUBSTANCEABUSE PROGRAM, SOME INFORMATION MAY BE OMITTED. This clinical summary was aggregated from multiple sources. Caution should be exercised in using it in the provision of clinical care. This summary normalizes information from multiple sources, and as a consequence, information in this document may materially change the coding, format and clinical context of patient data. In addition, data may be omitted in some cases. CLINICAL DECISIONS SHOULD BE BASED ON THE PRIMARY CLINICAL RECORDS. [facility]. provides no warranty or guarantee of the accuracy or completeness of information in this document.
== END | disposition home or self-care (01) ==
LOC: LABSPEC 16:54
PROVIDERS: PCP Family Medicine; Referring Provider Advanced Practice Midwife; Visit Provider Advanced Practice Midwife
DX: Z34.90 Encounter for supervision of normal pregnancy, unspecified, unspecified trimester (principal)
CPT/HCPCS: 87081

== ENCOUNTER 2023-10-06 23:25 | Outpatient (CLI) | payer BC, SELFPAY ==
--- OUTSIDE RECORDS SUMMARY | 2023-10-06 23:35 | XMS RPT_ITS | CCD ---
Author Name Unknown Address [address] [facility] [address] [place] [address] Organization [facility] Care Team Providers Care Test Architect Name Role Phone José Manuel Espinoza Unavailable Unavailable José Manuel Espinoza Unavailable Unavailable José Manuel Espinoza Unavailable Unavailable Ms. Donte Brown Attending Unava ilable Erlin, Dr. José Manuel Adames Primary Care Unavailab le Unavailable Primary Care Provider UnavailCHRISTIANO Sterling Attending Unavailable SOPHIA ESTEVEZ Admitting Unavailable SARATH MEADE Consulting Unavailable Sarath Meade MD Unavailable José Manuel Espinoza MD Primary Care Provider [phone] Greyson Davis MD Unavailable [phone] GREYSON DAVIS Attending Unavailable JOSÉ MANUEL ESPINOZA [...] amoxicillin; Translations: [amoxicillin] Drug Allergy 04-24-2021 [facility] Repository (1 source) erythromycin; Translations: [erythromycin] Drug Allergy [facility] Repository (5 sources) Clindamycin; Translations: [CLINDAMYCIN] Drug Allergy 04-24-2021 [facility] (5 sources) Nitrofurantoin; Translations: [NITROFURANTOIN] Drug Allergy 04-24-2021 [facility] Medications Current Medications Medication Drug Class(es) Dates [...] 162.6 cm Greyson Davis MD Work Phone: [facility] 07-11-2023 10:19-0500 Body mass index (BMI) [Ratio] 28.32 kg/m2 Greyson Davis MD Work Phone: [facility] 07-11-2023 10:19-0500 Body weight 74.84 kg Greyson Davis MD Work Phone: [facility] 07-11-2023 10:19-0500 Diastolic blood pressure 68 mm[Hg] Greyson Davis MD Work Phone: [facility] 07-11-2023 10:19-0500 Heart rate 91 /min Greyson Davis MD Work Phone: [facility] 07-11-2023 10:19-0500 Systolic blood pressure 118 mm[Hg] Greyson Davis MD Work Phone: [facility] 06-30-2023 08:35-0500 Body temperature 98.29 [degF] Christiano Arce MD Work Phone: [facility] 06-30-2023 08:35-0500 Diastolic blood pressure 76 mm[Hg] Christiano Arce MD Work Phone: [facility] 06-30-2023 08:35-0500 Heart rate 95 /min Christiano Arce MD Work Phone: [facility] 06-30-2023 08:35-0500 Respiratory rate 16 /min Christiano Arce MD Work Phone: [facility] 06-30-2023 08:35-0500 SaO2% (BldA) [Mass fraction] 98 % Christiano Arce MD Work Phone: [facility] 06-30-2023 08:35-0500 Systolic blood pressure 120 mm[Hg] Christiano Arce MD Work Phone: [facility] 06-27-2023 18:15-0400 Body height 162.6 cm Christiano Arce MD Work Phone: [facility] 06-27-2023 18:15-0400 Body mass index (BMI) [Ratio] 28.32 kg/m2 Christiano Arce MD Work Phone: [facility] 06-27-2023 18:150400 Body weight 74.84 kg Christiano Arce MD Work Phone: [facility] Encounters Encounter Date Encounter Type Care Provider Facility Start: 07-21-2023 End: 07-21-2023 ambulatory NO PRIMARY CARE [facility] Start: 07-11-2023 End: 07-11-2023 ambulatory GREYSON DAVIS [facility] Start: 07-11-2023 End: 07-11-2023 Office outpatient visit 10 minutes Greyson Davis MD Work Phone: [facility] Procedures Date Procedure [...] or older (1 - 1-dose 60+ series) [facility] Start: 2045 Zoster Vaccines (1 of 2) Zoster Vacc josiah (1 of 2) [facility] Start: 06-26-2031 DTaP/Tdap/Td Vaccine s (2 - Td or Tdap) DTaP/Tdap/Td Vaccines (2 - Td or Tdap) [facility] Start: 07-11-2023 End: 07-11-2023 Patient encounter procedure 07/11/2023 10:20 AM EST Procedure Visit [facility] [address] [place] [address] Greyson Davis MD [address] [place] [address] [facility] Start: 04-25-2023 Influenza vaccination Influenza Vacc ine (#1) [facility] Start: 2016 Screening for malign ant neoplasm of cervix Pap Smear [facility] Start: 2014 DTaP/Tdap/Td Vaccine s (1 - Tdap) DTaP/Tdap/Td Vaccines (1 - Tdap) [facility] Start: 2013 Hepatitis C screening Hepatitis C Sc reening [facility] Start: 2007 Depression Screening Depression Scre ening [facility] Start: 1996 MMR Vaccines (1 of 1 - Standard series) MMR Vaccines (1 of 1 - Standard series) [facility] Start: 1996 Varicella vaccination Varicell a Vaccines (1 of 2 - 2-dose childhood series) [facility] Start: 02-17-1996 COVID-19 Vaccine (#1) COVID-19 Vacci ne (#1) [facility] Start: 1995 Hepatitis B Vaccines (1 of 3 - 3-dose series) Hepatitis B Vaccines (1 of 3 - 3-dose series) [facility] Start: 1995 HIV screening HIV Screening [facility] alejandra [employer](Stone) [facility] Work Phone: Payers Date Payer Category Payer Unknown [id number] 2017 Unknown 1995 Unknown [id number] 1995 Unknown [id number] 1995 Unknown 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 [facility] Start: 1995 Sex Assigned At Not on file [facility] Start: 06-27-2023 End: 06-29-2023 Gender identity Not on file [facility] Start: 06-27-2023 Tobacco smoking status NMIS Never sm oked tobacco [facility] Start: 06-27-2023 Tobacco use and exposure Smoke less tobacco non-user [facility] Start: 06-29-2023 Alcohol intake Ex-drinker (finding) [facility] Start: 06-27-2023 End: 06-29-2023 History of Social function [facility] In the past 12 month s, has lack of transportation kept you from medical appointments or from getting medications? No [facility] In the past 12 month s, was there a time when you were not able to pay the mortgage or rent on time? No [facility] Start: 01-22-2023 [facility] Equipment Procedure Code Equipment Code Equipment Origin al Text Equipment Identifier Dates Stent Uret 6fr 2 6cm Wo Gw - [id number] Start: 06-29-2023 Clinical Notes 06-27-2023 to [...] proposed plan, giving informed consent. A female medical affairs director was present for the entire procedure. A proper time-out was performed. UROJET 6 ML NDC [id number] LOT # [id number] EXPIRES 02/2025 Administered by Greyson Davis [...] the interventions. She is to contact her united [place] attorney if she has any episodes of flank pain following the stent removal This is her first stone. Therefore we will hold off on metabolic testing at this time. Increase fluid intake Greyson Davis M.D. 07/11/2023 06/29/2023: Right ureteroscopy, laser lithotripsy, stone extraction, stent insertion (24 weeks ) [facility] 07-11-2023 History of Presen t illness Narrative Cystoscopy and stent removal Procedure Note Pre-operative Diagnosis: Ureteral calculus, 26 weeks (24 weeks at the time of the surgical procedure) Post-operative Diagnosis: Ureteral calculus Procedure Details The risks, benefits, complications, treatment options, and expected outcomes were discussed with the patient. The patient concurred with the proposed plan, giving informed consent. A female medical affairs director was present for the entire procedure. A proper time-out was performed. UROJET 6 ML NDC [id number] LOT # [id number] EXPIRES 02/2025 Administered by Greyson Davis [...] the interventions. She is to contact her united states attorney if she has any episodes of flank pain following the stent removal This is her first stone. Therefore we will hold off on metabolic testing at this time. Increase fluid intake Greyson Davis M.D. 07/11/2023 06/29/2023: Right ureteroscopy, laser lithotripsy, stone extraction, stent insertion (24 weeks ) documented in this encounter [facility] 06-30-2023 Telephone encounter Note S: Patient spoke with [facility] nurse regarding URETEROSCOPY 06/29/23- incontinence and [...] pain medications Protocols used: Post-Op Symptoms and [id number] [facility] 06-30-2023 Miscellaneous Notes S: Patient spoke with [...] pain medications Protocols used: Post-Op Symptoms and [id number]-BLEHF-RI documented in this encounter [facility] 06-30-2023 Note Attestation signed by Sophia Estevez MD at 06/30/2023 4:08 PM Maternal Medicine attending attestation: I reviewed and agree with the care provided by the resident during or immediately following the visit including the patient's medical history, the resident's findings in the physical exam, patient's diagnosis and discharge plan. @[email or web address]@ Department of Obstetrics and Gynecology [facility] Discharge Summary Admission on 06/27/2023 4:08 [...] ureteral nephrolithiasis Follow up appointment with your doctor/blindmaker - Call office for appointment in 7days; follow-up with Dr. Davis on 07/11/23 Activity - Normal Activity Call your doctor/blindmaker if you have: - leaking fluid - vaginal bleeding - regular contractions: More than 6 contractions in one hour - decreased movement - worsening abdominal (belly) pain - headache, blurry vision, increased swelling, upper abdominal pain TEJINDER RUDD, DO on 06/30/2023 at 2:16 PM [facility] 06-30-2023 Nurse Note 1440 discharge instructions given, papers signed [facility] 06-30-2023 Nurse Note 1440 discharge instructions given, papers signed documented in this encounter [facility] 06-30-2023 Hospital course Narrative @[email or web address]@ Department [...] ureteral nephrolithiasis Follow up appointment with your doctor/blindmaker - Call office for appointment in 7days; follow-up with Dr. Davis on 07/11/23 Activity - Normal Activity Call your doctor/blindmaker if you have: - leaking fluid - [...] and discharge plan. documented in this encounter [facility] 06-30-2023 Hospital Discharg e instructions Tejinder Rudd DO - 06/30/2023 1:03 PM EST Follow up appointment with your doctor/blindmaker - Call office for appointment in 7days Activity - Normal Activity Call your doctor/blindmaker if you have: - leaking fluid - [...] visit on 06/30/23 . TEJINDER RUDD DO [facility] The following attachments cannot be sent through Care Everywhere.Laser Lithotripsy for Kidney Stones Discharge Instructions (Maltese)Ureteral Stent Discharge Instructions (Maltese)documented in this encounter [facility] 06-30-2023 Miscellaneous Notes Date: 06/30/2023 Name: Donte St : 1995 [facility] Patient Information Primary Caregiver: Self Accompanied by/Relationship: S/O;Family Marital Status: Support System: SO/Family Hoahaoism/Cultural Factors: none Activities of Daily Living Communication: [...] place to sleep or slept in a senior living (including now)? No Transportation Needs Has the [...] awoken from anesthesia. documented in this encounter [facility] 06-30-2023 Note Formatting of this n ote might be different from the original. Date: 06/30/2023 Name: Donte St : 1995 [facility] Patient Information Primary Caregiver: Self Accompanied by/Relationship: S/O;Family Marital Status: Support System: SO/Family Hoahaoism/Cultural Factors: none Activities of Daily Living Communication: [...] place to sleep or slept in a senior living (including now)? No Transportation Needs Has the [...] N/A Developmental Delay: N/A Children's Services: N/A [facility] 06-30-2023 Note Formatting of this n ote might be different from the original. Date: 06/30/2023 Name: Donte St : 1995 [facility] Patient Information Primary Caregiver: Self Accompanied by/Relationship: S/O;Family Marital Status: Support System: SO/Family Hoahaoism/Cultural Factors: none Activities of Daily Living Communication: [...] place to sleep or slept in a senior living (including now)? No Transportation Needs Has the [...] N/A Developmental Delay: N/A Children's Services: N/A [facility] 06-30-2023 Note UROLOGY PROGRESS NOTE PATIENT NAME: [...] urology resident. Agree with assessment and plan [facility] 06-30-2023 Note Patient: Donte munguia Procedure Summary Date: 06/29/23 Room / Location: [address] Operating Room Anesthesia Start: 1309 Anesthesia [...] once all PACU criteria has been met. [facility] 06-30-2023 Note Patient: Donte munguia Procedure Summary Date: 06/29/23 Room / Location: [address] Operating Room Anesthesia Start: 1309 Anesthesia [...] once all PACU criteria has been met. [facility] 06-30-2023 History of Presen t illness [...] 98% 99% 97% Weight: Height: Reviewed from [id number] on 06/29 FHT: 150, moderate variability Accels: [...] (PF) (Decadron) injection IntraVENous PRN Ruy Henson ORGANISATION AND METHODS ANALYST - LICENSED PHYSICAL THERAPY ASSISTANT 4 mg at 06/29/23 1315 lidocaine PF (Xylocaine) 2 % injection IntraVENous PRN Ruy Henson, ORGANISATION AND METHODS ANALYST - LICENSED PHYSICAL THERAPY ASSISTANT 50 mg at 06/29/23 1314 ondansetron (Zofran) injection IntraVENous PRN Ruy Henson ORGANISATION AND METHODS ANALYST - LICENSED PHYSICAL THERAPY ASSISTANT 4 mg at 06/29/23 1315 Propofol (Diprivan) injection IntraVENous PRN Ruy Henson, ORGANISATION AND METHODS ANALYST - LICENSED PHYSICAL THERAPY ASSISTANT 150 mg at 06/29/23 1314 Succinylcholine Chloride (Anectine) injection IntraVENous PRN Ruy Escobedoent, ORGANISATION AND METHODS ANALYST - LICENSED PHYSICAL THERAPY ASSISTANT 110 mg at 06/29/23 1314 Assessment/Plan: Donte St is a 27 y.o. female 24w5d Nephrolithiasis S/p cystoscopy, retrograde pyelogram, flouroscopy, right ureteroscopy, laser lithotripsy and ureteral stent placement - Transport from [place] after presenting with flank pain and CT [...] discussed follow up with primary OB in [place] and precautions to return if needed. Dr. Cordell Lanier aware of plan and patient outcome. The total patient time of the visit was 20 minutes, of which was greater than 50% of the time was spent counseling and coordinating care. Nutrition rescreen completed. Chart reviewed. Patient NPO for procedure. Patient to be monitored and followed by the diet energy conservation technician. Dietitian available upon request. JANN Mejia UROLOGY [...] y.o. female 24w4d Nephrolithiasis - Transport from [place], presented with flank pain and had CT [...] laser lithotripsy, Dr. Cordell Lanier updated from [place] as well Patient admitted for nephrolithiasis. Urology consulted and recommends lithotripsy tomorrow AM. Patient 24 weeks 3d gestation and is cleared to have surgery tomorrow from a [facility] perspective. EDVIN PANDEY, 06/28/2023 7:25 PM [...] y.o. female 24w3d Nephrolithiasis - Transport from [place], presented with flank pain and had CT [...] Sophia Estevez MD documented in this encounter [facility] 06-29-2023 Note Patient: Donte munguia Procedure Summary Date: 06/29/23 Room / Location: [address] Operating Room Anesthesia Start: 1309 Anesthesia [...] opportunity for questions and acknowledgement of understanding. [facility] 06-29-2023 Note Patient: Donte munguia Procedure Summary Date: 06/29/23 Room / Location: [address] Operating Room Anesthesia Start: 1309 Anesthesia [...] opportunity for questions and acknowledgement of understanding. [facility] 06-29-2023 Note Nutrition rescreen c ompleted. Chart reviewed. Patient NPO for procedure. Patient to be monitored and followed by the diet energy conservation technician. Dietitian available upon request. JANN Mejia [facility] 06-29-2023 Note Nutrition rescreen c ompleted. Chart reviewed. Patient NPO for procedure. Patient to be monitored and followed by the diet energy conservation technician. Dietitian available upon request. JANN Mejia [facility] 06-29-2023 Note Airway Date/Time: 06/29/2023 1:14 PM Urgency: scheduled General Information and Staff Patient location during procedure: Procedural Resident/LICENSED PHYSICAL THERAPY ASSISTANT: COURTNEY Bautista CRNA Performed: LICENSED PHYSICAL THERAPY ASSISTANT Performed by: COURTNEY Bautista CRNA Authorized by: [...] 22 Number of attempts at approach: 1 [facility] 06-29-2023 Note Airway Date/Time: 06/29/2023 1:14 PM Urgency: scheduled General Information and Staff Patient location during procedure: Procedural Resident/LICENSED PHYSICAL THERAPY ASSISTANT: COURTNEY Bautista CRNA Performed: LICENSED PHYSICAL THERAPY ASSISTANT Performed by: COURTNEY Bautista CRNA Authorized by: [...] 22 Number of attempts at approach: 1 [facility] 06-29-2023 Note Formatting of this n ote might be different from the original. Pt to floor with OB nurses, nad, resp nonlabored, alert and oriented. Pt denies any pain except for a sore throat [facility] 06-29-2023 Note Formatting of this n ote might be different from the original. Pt to floor with OB nurses, nad, resp nonlabored, alert and oriented. Pt denies any pain except for a sore throat [facility] 06-29-2023 Note Formatting of this n ote might be different from the original. Report called to floor, RN ax 2 to transport pt to room [facility] 06-29-2023 Note Formatting of this n ote might be different from the original. Report called to floor, RN ax 2 to transport pt to room [facility] 06-29-2023 Note Formatting of this n ote might be different from the original. OB nurse at bedside to monitor baby [facility] 06-29-2023 Note Formatting of this n ote might be different from the original. OB nurse at bedside to monitor baby [facility] 06-29-2023 Note Formatting of this n ote [...] was emptied and patient awoken from anesthesia. [employer] Phone: 06-29-2023 Note Formatting of this n [...] was emptied and patient awoken from anesthesia. FAD ? IO Phone: 06-29-2023 Note Patient: Donte munguia Procedure Information Date/Time: 06/29/23 0900 Procedure: CYSTOSCOPY WITH URETEROSCOPY WITH LITHOTRIPSY (Right: Ureter) Location: [facility] OR [address] [place] [address] Operating Room Surgeons: Sarath Meade MD Relevant [...] risks discussed with patient. Additional Equipment Requests [facility] 06-29-2023 Note Patient: Donte munguia Procedure Information Date/Time: 06/29/23 0900 Procedure: CYSTOSCOPY WITH URETEROSCOPY WITH LITHOTRIPSY (Right: Ureter) Location: [facility] OR [address] [place] [address] Operating Room Surgeons: Sarath Meade MD Relevant [...] risks discussed with patient. Additional Equipment Requests [facility] 06-28-2023 Note UROLOGY PROGRESS NOTE PATIENT [...] Barakat MD PGY-1 Urology 06/28/23 7:44 AM [facility] 06-28-2023 Note UROLOGY PROGRESS NOTE PATIENT [...] Barakat MD PGY-1 Urology 06/28/23 7:44 AM [facility] 06-27-2023 Note Attestation signed by Sophia [...] Births Patient presents as a transport from [facility] where she was admitted for flank pain in the setting of a right kidney stone. CT abdomen done today showed a 5.5mm nonobstructing kidney stone, urology was consulted over there and suspects obstruction. She was transferred to [facility] for urologic consultation in the setting of [...] Prothrombin (homozygous), FVL+Prot (more content not included)... [facility] 06-27-2023 Note Attestation signed by Sophia [...] Births Patient presents as a transport from [facility] where she was admitted for flank pain in the setting of a right kidney stone. CT abdomen done today showed a 5.5mm nonobstructing kidney stone, urology was consulted over there and suspects obstruction. She was transferred to [facility] for urologic consultation in the setting of [...] Prothrombin (homozygous), FVL+Prot (more content not included)... [facility] 06-27-2023 Consult note Associated Order (s): IP CONSULT TO UROLOGY Urology Inpatient Consultation 06/27/2023 HISTORY OF PRESENT ILLNESS: The patient is a 27 y.o. female with no significant past medical history who is transferred as a direct admit from [place] for right abdominal pain. She states that [...] wishes to proceed forward. Sarath Meade MD [facility] 06-27-2023 Consult note Associated Order (s): IP CONSULT TO UROLOGY Urology Inpatient Consultation 06/27/2023 HISTORY OF PRESENT ILLNESS: The patient is a 27 y.o. female with no significant past medical history who is transferred as a direct admit from [place] for right abdominal pain. She states that [...] Sarath Meade MD documented in this encounter [facility] 06-27-2023 History and physical note Department of Maternal Medicine History and Physical CHIEF COMPLAINT: kidney stone HISTORY OF PRESENT ILLNESS: The patient is a 27 y.o. female at 24w4d. OB History 1 Para Term AB Living SAB IAB Ectopic Multiple Live Births Patient presents as a transport from [facility] where she was admitted for flank pain in the setting of a right kidney stone. CT abdomen done today showed a 5.5mm nonobstructing kidney stone, urology was consulted over there and suspects obstruction. She was transferred to [facility] for urologic consultation in the setting of [...] - not indicated Nephrolithiasis - presented to [facility] with flank pain, initial renal ultrasound showed mild hydronephrosis but no stone. Due to ongoing pain, nausea and vomiting a CT scan was performed 06/27 that was reviewed by urology and think she has a 5.5mm obstructing kidney stone - she was transported 06/27 to [facility] for urology intervention - flomax, IVF and [...] for steroids unless concerns for labor. . [facility] 06-27-2023 History and physical note Department of Maternal Medicine History and Physical CHIEF COMPLAINT: kidney stone HISTORY OF PRESENT ILLNESS: The patient is a 27 y.o. female at 24w4d. OB History 1 Para Term AB Living SAB IAB Ectopic Multiple Live Births Patient presents as a transport from [facility] where she was admitted for flank pain in the setting of a right kidney stone. CT abdomen done today showed a 5.5mm nonobstructing kidney stone, urology was consulted over there and suspects obstruction. She was transferred to [facility] for urologic consultation in the setting of [...] - not indicated Nephrolithiasis - presented to [facility] with flank pain, initial renal ultrasound showed mild hydronephrosis but no stone. Due to ongoing pain, nausea and vomiting a CT scan was performed 06/27 that was reviewed by urology and think she has a 5.5mm obstructing kidney stone - she was transported 06/27 to [facility] for urology intervention - flomax, IVF and [...] for labor. . documented in this encounter [facility] Diagnosis Calculus, ureter- Primary [...] DATE CREATED AUTHOR AUTHOR'S ORGANIZ ATION 10/22/2022 [facility] DATE CREATED AUTHOR AUTHOR'S ORGANIZ ATION 06/30/2023 [facility] DATE CREATED AUTHOR AUTHOR'S ORGANIZ ATION 07/13/2023 [facility] DATE CREATED AUTHOR AUTHOR'S ORGANIZ ATION 07/21/2023 [facility] Reason for Visit (unrecogniz ed section and content) Specialty Diagnoses / Procedures Referred By Gibran hutchins Referred To Contact Diagnoses Nephrolithiasis Procedures .. Sophia Estevez MD [address] [place] [address] [facility] [place] [address] Referral ID Status Reason Start Date Expiration Date Visits Re quested Visits Authorized [id number] 1 Reason Onset Date Comments Post-op [...] Payton RN)1308 (Continued by Anesthesia - Provider: COURTNEY Bautista CRNA)1308 (Paused - Provider: COURTNEY Bautista CRNA - Comment: Switch to gravity)1309 (New Bag - Provider: Ruy Henson APRN - LICENSED PHYSICAL THERAPY ASSISTANT)1354 (Anesthesia Volume Adjustment - Provider: Ruy Henson [...] 06/28/23 at 0423 1133 (Given - Provider: Annette Ortiz RN)1943 (Given - Provider: Danuta Payton [...] Alternative - Provider: Danuta Payton RN) 1309 ([facility] Hold - Provider: Automatic Transfer Provider - Reason: Patient not available)1439 ([facility] Unhold - Provider: Automatic Transfer Provider) ondansetron [...] (Given - Provider: Danuta Payton RN) 130 ([facility] Hold - Provider: Automatic Transfer Provider - Reason: Patient not available)1439 ([facility] Unhold - Provider: Automatic Transfer Provider) oxyCODONE (Roxicodone) immediate release tablet 5 mg 5 mg, Oral, Every 6 hours PRN, moderate pain (4-6), severe pain (7-10), Starting on Fri06/27/23 at 1612 1526 (Given - Provider: Annette Ortiz RN) 1309 ([facility] Hold - Provider: Automatic Transfer Provider - Reason: Patient not available)1439 ([facility] Unhold - Provider: Automatic Transfer Provider) phenazopyridine (Pyridium) tablet 100 mg 100 mg, Oral, 3 times daily PRN, bladder spasms, Starting on Fri06/27/23 at 2304 0002 (Given - Provider: Millie Clifford, RN)0551 (Given - Provider: Millie Clifford, RN)1459 (Given - Provider: Annette Ortiz, RN) 0103 (Given - Provider: Danuta Payton RN)1309 ([facility] Hold - Provider: Automatic Transfer Provider - Reason: Patient not available)1439 ([facility] Unhold - Provider: Automatic Transfer Provider)1836 (Given [...] Care Teams (unrecognized sec tion and content) Test Architect Relationship Specialty Start Date End Date Sarath Meade MD [address] [place] [address] Surgeon Urology 06/29/23 Test Architect Relationship Specialty Start Date End Date José Manuel Espinoza MD [address] [facility], [facility] [address] [id number] PCP - General Family Medicine 07/11/23 Sarath Meade MD [address] [place] [address] Surgeon Urology 06/29/23 Greyson Davis MD [address] [place] [id number] Surgeon Urology 07/11/23 FOR RECORDS PERTAINING TO [...] BE BASED ON THE PRIMARY CLINICAL RECORDS. [employer] [facility]. provides no warranty or guarantee of the accuracy or completeness of information in this document.
[2023-10-06 23:38] VITALS: BMI 31.8
[2023-10-06 23:43] VITALS: BP 129/78; PULSE 100; TEMP 36.6; O2SAT 97; O2SAT 98
[2023-10-07 00:19] LABS: ROM Internal Control Test YES-OK TO RESULT pt. (Internal QC); ROM Patient Test Negative (Negative)
--- NOTE | 2023-10-11 05:56 | OB.TRI.PN ---
Progress Notes Date of Service: 10/06/23 Progress Note: Patient presents for triage evaluation secondary to possible SROM FHT: 135 Moderate variability reactive no decelerations category I tracing [place]: irreuglar Contractions Assessment and plan: amniotic membranes intact false labor Reactive NST, reassuring maternal and status patient discharged to home to follow-up as scheduled. See problem list details for additional plan information. Laboratory Studies: Laboratory Tests 10/06/23 Range/Units 23:47 Vag Amniotic Fld Detect Negative (Negative) Charges/Coding Procedures Urinary/Genital 52xxx-59xxx: [id number] non-stress test Interp
== END 2023-10-07 00:59 | disposition home or self-care (01) ==
LOC: WPOUT 23:32 → WP 23:33
PROVIDERS: PCP Family Medicine; Visit Provider Obstetrics & Gynecology
DX: O47.9 False labor, unspecified (principal); Z3A.00 Weeks of gestation of pregnancy not specified
CPT/HCPCS: 59025; 59050; 84112; 99221; G0378

== ENCOUNTER 2023-10-09 02:25 | Outpatient (CLI) | payer BC, SELFPAY ==
[2023-10-09 02:30] VITALS: BMI 31.4
--- OUTSIDE RECORDS SUMMARY | 2023-10-09 02:30 | XMS RPT_ITS | CCD ---
Author Name Unknown Address [address] [facility] [address] [place] [address] Organization [facility] Care Team Providers Care Sternman Name Role Phone José Manuel Espinoza Unavailable Unavailable José Manuel Espinoza Unavailable Unavailable José Manuel Espinoza Unavailable Unavailable Ms. Donte Brown Attending Unava ilable Erlin, Dr. José Manuel Adames Primary Care Unavailab le Unavailable Primary Care Provider UnavailCHRISTIANO Sterling Attending Unavailable SPOHIA ESTEVEZ Admitting Unavailable SARATH MEADE Consulting Unavailable Sarath Meade MD Unavailable José Manuel Espinoza MD Primary Care Provider Greyson Davis MD Unavailable [phone] GREYSON DAVIS Attending Unavailable JOSÉ MANUEL [...] amoxicillin; Translations: [amoxicillin] Drug Allergy 04-24-2021 Rash [facility] Repository (1 source) erythromycin; Translations: [erythromycin] Drug Allergy [facility] Repository (5 sources) Clindamycin; Translations: [CLINDAMYCIN] Drug Allergy 04-24-2021 [facility] (5 sources) Nitrofurantoin; Translations: [NITROFURANTOIN] Drug Allergy 04-24-2021 [facility] Medications Current Medications Medication Drug Class(es) Dates [...] 162.6 cm Greyson Davis MD Work Phone: [facility] [employer] 07-11-2023 10:19-0500 Body mass index (BMI) [Ratio] 28.32 kg/m2 Greyson Davis MD Work Phone: [facility] [employer] 07-11-2023 10:19-0500 Body weight 74.84 kg Greyson Davis MD Work Phone: [facility] [employer] 07-11-2023 10:19-0500 Diastolic blood pressure 68 mm[Hg] Greyson Davis MD Work Phone: [facility] [employer] 07-11-2023 10:19-0500 Heart rate 91 /min Greyson Davis MD Work Phone: [facility] [employer] 07-11-2023 10:19-0500 Systolic blood pressure 118 mm[Hg] Greyson Davis MD Work Phone: [facility] [employer] 06-30-2023 08:35-0500 Body temperature 98.29 [degF] Christiano Arce MD Work Phone: [facility] [employer] 06-30-2023 08:35-0500 Diastolic blood pressure 76 mm[Hg] Christiano Arce MD Work Phone: [facility] [employer] 06-30-2023 08:35-0500 Heart rate 95 /min Christiano Arce MD Work Phone: [facility] [employer] 06-30-2023 08:35-0500 Respiratory rate 16 /min Christiano Arce MD Work Phone: [facility] [employer] 06-30-2023 08:35-0500 SaO2% (BldA) [Mass fraction] 98 % Christiano Arce MD Work Phone: [facility] [employer] 06-30-2023 08:35-0500 Systolic blood pressure 120 mm[Hg] Christiano Arce MD Work Phone: [facility] [employer] 06-27-2023 18:15-0400 Body height 162.6 cm Christiano Arce MD Work Phone: [facility] [employer] 06-27-2023 18:15-0400 Body mass index (BMI) [Ratio] 28.32 kg/m2 Christiano Arce MD Work Phone: [facility] 06-27-2023 18:150400 Body weight 74.84 kg Christiano Arce MD Work Phone: [facility] Encounters Encounter Date Encounter Type Care Provider Facility Start: 07-21-2023 End: 07-21-2023 ambulatory NO PRIMARY CARE [facility] Start: 07-11-2023 End: 07-11-2023 ambulatory GREYSON DAVIS [facility] Start: 07-11-2023 End: 07-11-2023 Office outpatient visit 10 minutes Greyson Davis MD Work Phone: [facility] Procedures Date Procedure Procedure [...] or older (1 - 1-dose 60+ series) [facility] Start: 2045 Zoster Vaccines (1 of 2) Zoster Vacc josiah (1 of 2) [facility] Start: 06-26-2031 DTaP/Tdap/Td Vaccine s (2 - Td or Tdap) DTaP/Tdap/Td Vaccines (2 - Td or Tdap) [facility] Start: 07-11-2023 End: 07-11-2023 Patient encounter procedure 07/11/2023 10:20 AM EST Procedure Visit [facility] [address] [place] [address] Greyson Davis MD [address] [place] [address] [facility] Start: 04-25-2023 Influenza vaccination Influenza Vacc ine (#1) [facility] Start: 2016 Screening for malign ant neoplasm of cervix Pap Smear [facility] Start: 2014 DTaP/Tdap/Td Vaccine s (1 - Tdap) DTaP/Tdap/Td Vaccines (1 - Tdap) [facility] Start: 2013 Hepatitis C screening Hepatitis C Sc reening [facility] Start: 2007 Depression Screening Depression Scre ening [facility] Start: 1996 MMR Vaccines (1 of 1 - Standard series) MMR Vaccines (1 of 1 - Standard series) [facility] Start: 1996 Varicella vaccination Varicell a Vaccines (1 of 2 - 2-dose childhood series) [facility] Start: 02-17-1996 COVID-19 Vaccine (#1) COVID-19 Vacci ne (#1) [facility] Start: 1995 Hepatitis B Vaccines (1 of 3 - 3-dose series) Hepatitis B Vaccines (1 of 3 - 3-dose series) [facility] Start: 1995 HIV screening HIV Screening [facility] alejandra [employer](Stone) [facility] Work Phone: Payers Date Payer Category Payer Unknown [id number] 2017 Unknown 1995 Unknown [id number] 1995 Unknown [id number] 1995 Unknown 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 [facility] Start: 1995 Sex Assigned At Not on file [facility] Start: 06-27-2023 End: 06-29-2023 Gender identity Not on file [facility] Start: 06-27-2023 Tobacco smoking status WVIS Never sm oked tobacco [facility] Start: 06-27-2023 Tobacco use and exposure Smoke less tobacco non-user [facility] Start: 06-29-2023 Alcohol intake Ex-drinker (finding) [facility] Start: 06-27-2023 End: 06-29-2023 History of Social function [facility] In the past 12 month s, has lack of transportation kept you from medical appointments or from getting medications? No [facility] In the past 12 month s, was there a time when you were not able to pay the mortgage or rent on time? No [facility] Start: 01-22-2023 [facility] Medical Equipment Procedure Code Equipment Code Equipment Origin al Text Equipment Identifier Dates Stent Uret 6fr 2 6cm Wo Gw - [id number] Start: 06-29-2023 Clinical Notes 06-27-2023 to [...] plan, giving informed consent. A female medical professionals was present for the entire procedure. A proper time-out was performed. UROJET 6 ML NDC [id number] LOT # [id number] EXPIRES 02/2025 Administered by Greyson Davis [...] the interventions. She is to contact her cell tester if she has any episodes of flank pain following the stent removal This is her first stone. Therefore we will hold off on metabolic testing at this time. Increase fluid intake Greyson Davis M.D. 07/11/2023 06/29/2023: Right ureteroscopy, laser lithotripsy, stone extraction, stent insertion (24 weeks ) [facility] 07-11-2023 History of Presen t illness Narrative Cystoscopy and stent removal Procedure Note Pre-operative Diagnosis: Ureteral calculus, 26 weeks (24 weeks at the time of the surgical procedure) Post-operative Diagnosis: Ureteral calculus Procedure Details The risks, benefits, complications, treatment options, and expected outcomes were discussed with the patient. The patient concurred with the proposed plan, giving informed consent. A female medical professionals was present for the entire procedure. A proper time-out was performed. UROJET 6 ML NDC [id number] LOT # [id number] S1 EXPIRES 02/2025 Administered by Greyson Davis [...] the interventions. She is to contact her cell tester if she has any episodes of flank pain following the stent removal This is her first stone. Therefore we will hold off on metabolic testing at this time. Increase fluid intake Greyson Davis M.D. 07/11/2023 06/29/2023: Right ureteroscopy, laser lithotripsy, stone extraction, stent insertion (24 weeks ) documented in this encounter [facility] [email or web address] 06-30-2023 Telephone encounter Note S: Patient spoke with [facility] nurse regarding URETEROSCOPY 06/29/23- incontinence and frequency [...] pain medications Protocols used: Post-Op Symptoms and [id number] [facility] [email or web address] 06-30-2023 Miscellaneous Notes S: Patient spoke with [...] pain medications Protocols used: Post-Op Symptoms and [id number] documented in this encounter [facility] 06-30-2023 Note Attestation signed by Sophia Estevez MD at 06/30/2023 4:08 PM Maternal Medicine attending attestation: I reviewed and agree with the care provided by the resident during or immediately following the visit including the patient's medical history, the resident's findings in the physical exam, patient's diagnosis and discharge plan. @[email or web address]@ Department of Obstetrics and Gynecology [facility] Discharge Summary Admission on 06/27/2023 4:08 [...] ureteral nephrolithiasis Follow up appointment with your doctor/geophysics scientist - Call office for appointment in 7days; follow-up with Dr. Davis on 07/11/23 Activity - Normal Activity Call your doctor/geophysics scientist if you have: - leaking fluid - vaginal bleeding - regular contractions: More than 6 contractions in one hour - decreased movement - worsening abdominal (belly) pain - headache, blurry vision, increased swelling, upper abdominal pain TEJINDER RUDD, DO on 06/30/2023 at 2:16 PM [facility] 06-30-2023 Nurse Note 1440 discharge instructions given, papers signed [facility] 06-30-2023 Nurse Note 1440 discharge instructions given, papers signed documented in this encounter [facility] 06-30-2023 Hospital course Narrative @[email or web address]@ Department of [...] ureteral nephrolithiasis Follow up appointment with your doctor/geophysics scientist - Call office for appointment in 7days; follow-up with Dr. Davis on 07/11/23 Activity - Normal Activity Call your doctor/geophysics scientist if you have: - leaking fluid - [...] and discharge plan. documented in this encounter [facility] 06-30-2023 Hospital Discharg e instructions Tejinder Rudd DO - 06/30/2023 1:03 PM EST Follow up appointment with your doctor/geophysics scientist - Call office for appointment in 7days Activity - Normal Activity Call your doctor/geophysics scientist if you have: - leaking fluid - [...] visit on 06/30/23 . TEJINDER RUDD DO [facility] The following attachments cannot be sent through Care Everywhere.Laser Lithotripsy for Kidney Stones Discharge Instructions (Arabic)Ureteral Stent Discharge Instructions (Arabic)documented in this encounter [facility] 06-30-2023 Miscellaneous Notes Date: 06/30/2023 Name: Donte St : 1995 [facility] Patient Information Primary Caregiver: Self Accompanied by/Relationship: S/O;Family Marital Status: Support System: SO/Family Methodist/Cultural Factors: none Activities of Daily Living Communication: [...] place to sleep or slept in a detention (including now)? No Transportation Needs Has the [...] awoken from anesthesia. documented in this encounter [facility] 06-30-2023 Note Formatting of this n ote might be different from the original. Date: 06/30/2023 Name: Donte St : 1995 [facility] Patient Information Primary Caregiver: Self Accompanied by/Relationship: S/O;Family Marital Status: Support System: SO/Family Methodist/Cultural Factors: none Activities of Daily Living Communication: [...] place to sleep or slept in a detention (including now)? No Transportation Needs Has the [...] N/A Developmental Delay: N/A Children's Services: N/A [facility] 06-30-2023 Note Formatting of this n ote might be different from the original. Date: 06/30/2023 Name: Donte St : 1995 [facility] Patient Information Primary Caregiver: Self Accompanied by/Relationship: S/O;Family Marital Status: Support System: SO/Family Methodist/Cultural Factors: none Activities of Daily Living Communication: [...] place to sleep or slept in a detention (including now)? No Transportation Needs Has the [...] N/A Developmental Delay: N/A Children's Services: N/A [facility] [email or web address] 06-30-2023 Note UROLOGY PROGRESS NOTE PATIENT NAME: [...] removal and have office call her Camden Ramríez MD Urology, PGY3 06/30/2023 The history and physical has been reviewed. The pertinent findings from the history of present illness, past medical history, family history, social history, review of systems have been noted and confirmed that are unchanged. Discussed with the urology resident. Agree with assessment and plan [facility] 06-30-2023 Note Patient: Donte munguia Procedure Summary Date: 06/29/23 Room / Location: [address] Operating Room Anesthesia Start: 1309 Anesthesia [...] PACU criteria has been met. [facility] 06-30-2023 Note Patient: Donte munguia Procedure Summary Date: 06/29/23 Room / Location: [address] Operating Room Anesthesia Start: 1309 Anesthesia [...] PACU criteria has been met. [facility] 06-30-2023 History of Presen t illness [...] 98% 99% 97% Weight: Height: Reviewed from [id number] on 06/29 FHT: 150, moderate variability Accels: [...] (PF) (Decadron) injection IntraVENous PRN Ruy Henson [employer] - GUIDE SETTER 4 mg at 06/29/23 1315 lidocaine PF (Xylocaine) 2 % injection IntraVENous PRN Ruy Henson, [employer] - GUIDE SETTER 50 mg at 06/29/23 1314 ondansetron (Zofran) injection IntraVENous PRN Ruy Henson [employer] - GUIDE SETTER 4 mg at 06/29/23 1315 Propofol (Diprivan) injection IntraVENous PRN Ruy Henson, [employer] - GUIDE SETTER 150 mg at 06/29/23 1314 Succinylcholine Chloride (Anectine) injection IntraVENous PRN Ruy Escobedoent, [employer] - GUIDE SETTER 110 mg at 06/29/23 1314 Assessment/Plan: Donte St is a 27 y.o. female 24w5d Nephrolithiasis S/p cystoscopy, retrograde pyelogram, flouroscopy, right ureteroscopy, laser lithotripsy and ureteral stent placement - Transport from [place] after presenting with flank pain and CT [...] discussed follow up with primary OB in [place] and precautions to return if needed. Dr. Cordell Lanier aware of plan and patient outcome. The total patient time of the visit was 20 minutes, of which was greater than 50% of the time was spent counseling and coordinating care. Nutrition rescreen completed. Chart reviewed. Patient NPO for procedure. Patient to be monitored and followed by the diet shop technician. Dietitian available upon request. JANN Mejia [...] y.o. female 24w4d Nephrolithiasis - Transport from [place], presented with flank pain and had CT [...] laser lithotripsy, Dr. Cordell Lanier updated from [place] as well Patient admitted for nephrolithiasis. Urology consulted and recommends lithotripsy tomorrow AM. Patient 24 weeks 3d gestation and is cleared to have surgery tomorrow from a [facility] perspective. EDVIN PANDEY, 06/28/2023 7:25 PM [...] y.o. female 24w3d Nephrolithiasis - Transport from [place], presented with flank pain and had CT [...] Sophia Estevez MD documented in this encounter [facility] 06-29-2023 Note Patient: Donte munguia Procedure Summary Date: 06/29/23 Room / Location: [address] Operating Room Anesthesia Start: 1309 Anesthesia [...] questions and acknowledgement of understanding. [facility] 06-29-2023 Note Patient: Donte munguia Procedure Summary Date: 06/29/23 Room / Location: [address] Operating Room Anesthesia Start: 1309 Anesthesia [...] questions and acknowledgement of understanding. [facility] 06-29-2023 Note Nutrition rescreen c ompleted. Chart reviewed. Patient NPO for procedure. Patient to be monitored and followed by the diet shop technician. Dietitian available upon request. JANN Mejia [facility] 06-29-2023 Note Nutrition rescreen c ompleted. Chart reviewed. Patient NPO for procedure. Patient to be monitored and followed by the diet shop technician. Dietitian available upon request. JANN Mejia [facility] 06-29-2023 Note Airway Date/Time: 06/29/2023 1:14 PM Urgency: scheduled General Information and Staff Patient location during procedure: Procedural Resident/GUIDE SETTER: COURTNEY Bautista CRNA Performed: GUIDE SETTER Performed by: COURTNEY Bautista CRNA Authorized by: [...] of attempts at approach: 1 [facility] 06-29-2023 Note Airway Date/Time: 06/29/2023 1:14 PM Urgency: scheduled General Information and Staff Patient location during procedure: Procedural Resident/GUIDE SETTER: COURTNEY Bautista CRNA Performed: GUIDE SETTER Performed by: COURTNEY Bautista CRNA Authorized by: [...] of attempts at approach: 1 [facility] 06-29-2023 Note Formatting of this n ote might be different from the original. Pt to floor with OB nurses, nad, resp nonlabored, alert and oriented. Pt denies any pain except for a sore throat [facility] 06-29-2023 Note Formatting of this n ote might be different from the original. Pt to floor with OB nurses, nad, resp nonlabored, alert and oriented. Pt denies any pain except for a sore throat [facility] 06-29-2023 Note Formatting of this n ote might be different from the original. Report called to floor, RN ax 2 to transport pt to room [facility] 06-29-2023 Note Formatting of this n ote might be different from the original. Report called to floor, RN ax 2 to transport pt to room [facility] 06-29-2023 Note Formatting of this n ote might be different from the original. OB nurse at bedside to monitor baby [facility] 06-29-2023 Note Formatting of this n ote might be different from the original. OB nurse at bedside to monitor baby [facility] 06-29-2023 Note Formatting of this n ote [...] was emptied and patient awoken from anesthesia. [facility] Phone: 06-29-2023 Note Formatting of this n [...] was emptied and patient awoken from anesthesia. [employer] Phone: 06-29-2023 Note Patient: oDnte munguia Procedure Information Date/Time: 06/29/23 0900 Procedure: CYSTOSCOPY WITH URETEROSCOPY WITH LITHOTRIPSY (Right: Ureter) Location: [facility] OR [address] [place] [address] Operating Room Surgeons: Sarath Meade MD Relevant [...] with patient. Additional Equipment Requests [facility] 06-29-2023 Note Patient: Donte munguia Procedure Information Date/Time: 06/29/23 0900 Procedure: CYSTOSCOPY WITH URETEROSCOPY WITH LITHOTRIPSY (Right: Ureter) Location: [facility] OR [address] [place] [address] Operating Room Surgeons: Sarath Meade MD Relevant [...] with patient. Additional Equipment Requests [facility] 06-28-2023 Note UROLOGY PROGRESS NOTE PATIENT [...] PGY-1 Urology 06/28/23 7:44 AM [facility] 06-28-2023 Note UROLOGY PROGRESS NOTE PATIENT [...] PGY-1 Urology 06/28/23 7:44 AM [facility] 06-27-2023 Note Attestation signed by Sophia [...] Births Patient presents as a transport from [facility] where she was admitted for flank pain in the setting of a right kidney stone. CT abdomen done today showed a 5.5mm nonobstructing kidney stone, urology was consulted over there and suspects obstruction. She was transferred to [facility] for urologic consultation in the setting of [...] FVL+Prot (more content not included)... [facility] 06-27-2023 Note Attestation signed by Sophia [...] Births Patient presents as a transport from [facility] where she was admitted for flank pain in the setting of a right kidney stone. CT abdomen done today showed a 5.5mm nonobstructing kidney stone, urology was consulted over there and suspects obstruction. She was transferred to [facility] for urologic consultation in the setting of [...] FVL+Prot (more content not included)... [facility] 06-27-2023 Consult note Associated Order (s): IP CONSULT TO UROLOGY Urology Inpatient Consultation 06/27/2023 HISTORY OF PRESENT ILLNESS: The patient is a 27 y.o. female with no significant past medical history who is transferred as a direct admit from [place] for right abdominal pain. She states that [...] wishes to proceed forward. Sarath Meade MD [facility] 06-27-2023 Consult note Associated Order (s): IP CONSULT TO UROLOGY Urology Inpatient Consultation 06/27/2023 HISTORY OF PRESENT ILLNESS: The patient is a 27 y.o. female with no significant past medical history who is transferred as a direct admit from [place] for right abdominal pain. She states that [...] Sarath Meade MD documented in this encounter [facility] 06-27-2023 History and physical note Department of Maternal Medicine History and Physical CHIEF COMPLAINT: kidney stone HISTORY OF PRESENT ILLNESS: The patient is a 27 y.o. female at 24w4d. OB History 1 Para Term AB Living SAB IAB Ectopic Multiple Live Births Patient presents as a transport from [facility] where she was admitted for flank pain in the setting of a right kidney stone. CT abdomen done today showed a 5.5mm nonobstructing kidney stone, urology was consulted over there and suspects obstruction. She was transferred to [facility] for urologic consultation in the setting of [...] - not indicated Nephrolithiasis - presented to [facility] with flank pain, initial renal ultrasound showed mild hydronephrosis but no stone. Due to ongoing pain, nausea and vomiting a CT scan was performed 06/27 that was reviewed by urology and think she has a 5.5mm obstructing kidney stone - she was transported 06/27 to [facility] for urology intervention - flomax, IVF and [...] for steroids unless concerns for labor. . [facility] 06-27-2023 History and physical note Department of Maternal Medicine History and Physical CHIEF COMPLAINT: kidney stone HISTORY OF PRESENT ILLNESS: The patient is a 27 y.o. female at 24w4d. OB History 1 Para Term AB Living SAB IAB Ectopic Multiple Live Births Patient presents as a transport from [facility] where she was admitted for flank pain in the setting of a right kidney stone. CT abdomen done today showed a 5.5mm nonobstructing kidney stone, urology was consulted over there and suspects obstruction. She was transferred to [facility] for urologic consultation in the setting of [...] - not indicated Nephrolithiasis - presented to [facility] with flank pain, initial renal ultrasound showed mild hydronephrosis but no stone. Due to ongoing pain, nausea and vomiting a CT scan was performed 06/27 that was reviewed by urology and think she has a 5.5mm obstructing kidney stone - she was transported 06/27 to [facility] for urology intervention - flomax, IVF and [...] for labor. . documented in this encounter [facility] documented in this encounter [facility] note* Diagnosis Calculus, ureter- Primary Calculus [...] DATE CREATED AUTHOR AUTHOR'S ORGANIZ ATION 10/22/2022 [facility] DATE CREATED AUTHOR AUTHOR'S ORGANIZ ATION 06/30/2023 [facility] DATE CREATED AUTHOR AUTHOR'S ORGANIZ ATION 07/13/2023 [facility] DATE CREATED AUTHOR AUTHOR'S ORGANIZ ATION 07/21/2023 [facility] Reason for Visit (unrecogniz ed section and content) Specialty Diagnoses / Procedures Referred By Gibran hutchins Referred To Contact Diagnoses Nephrolithiasis Procedures .. Sophia Estevez MD [address] [place] [address] Ach [address] [place] [address] Referral ID Status Reason Start Date Expiration Date Visits Re quested Visits Authorized [id number] 1 1 Reason Onset Date Comments Post-op [...] Bag - Provider: Ruy Henson APRN - GUIDE SETTER)1354 (Anesthesia Volume Adjustment - Provider: Ruy Henson [...] Automatic Transfer Provider)1524 (Given - Provider: Annette Otriz RN) 0215 (Given - Provider: Amna Flaherty [...] Alternative - Provider: Danuta Payton RN) 1309 ([facility] Hold - Provider: Automatic Transfer Provider - Reason: Patient not available)1439 ([facility] Unhold - Provider: Automatic Transfer [...] (Given - Provider: Danuta Payton RN) 130 ([facility] Hold - Provider: Automatic Transfer Provider - Reason: Patient not available)1439 ([facility] Unhold - Provider: Automatic Transfer Provider) oxyCODONE (Roxicodone) immediate release tablet 5 mg 5 mg, Oral, Every 6 hours PRN, moderate pain (4-6), severe pain (7-10), Starting on Fri06/27/23 at 1612 1526 (Given - Provider: Annette Ortiz RN) 1309 ([facility] Hold - Provider: Automatic Transfer Provider - Reason: Patient not available)1439 ([facility] Unhold - Provider: Automatic Transfer Provider) phenazopyridine (Pyridium) tablet 100 mg 100 mg, Oral, 3 times daily PRN, bladder spasms, Starting on Fri06/27/23 at 2304 0002 (Given - Provider: Millie Clifford, RN)0551 (Given - Provider: Millie Clifford, RN)1459 (Given - Provider: Annette Ortiz, RN) 0103 (Given - Provider: Danuta Payton RN)1309 ([facility] Hold - Provider: Automatic Transfer Provider - Reason: Patient not available)1439 ([facility] Unhold - Provider: Automatic Transfer [...] Care Teams (unrecognized sec tion and content) Sternman Relationship Specialty Start Date End Date Sarath Meade MD [address] [place] [address] Surgeon Urology 06/29/23 Sternman Relationship Specialty Start Date End Date José Manuel Espinoza MD [address] [facility], [facility] [address] [id number] PCP - General Family Medicine 07/11/23 Sarath Meade MD [address] [place] [address] Surgeon Urology 06/29/23 Greyson Davis MD [address] [place] [id number] Surgeon Urology 07/11/23 FOR RECORDS PERTAINING TO [...] BE BASED ON THE PRIMARY CLINICAL RECORDS. [employer] [facility]. provides no warranty or guarantee of the accuracy or completeness of information in this document.
[2023-10-09 02:40] VITALS: BP 129/79; PULSE 105; PULSE 114; TEMP 36.8; O2SAT 97
--- NOTE | 2023-10-09 17:34 | OB.TRI.NOTE ---
HPI - General HPI Narrative DONTE ST, is a 28 y/po 2p1@39 weeks 1 day who presents to L&D with contractions. she denies loss of fluid, vaginal bleeding, or dec fm. PFSH PFS Medical History (Updated 10/15/23 @ 17:[address] Matilde Robles, DO) Abnormal glucose affecting depression Home Medications acetaminophen 500 mg tablet (Tylenol Extra Strength) 1,000 mg PO Q6H PRN pain 06/25/23 [History Last Taken 06/27/23 10:00] famotidine 20 mg tablet (Acid-Pep) 20 mg PO QHS heartburn 10/06/23 [History Last Taken 10/13/23] ferrous sulfate 300 mg (60 mg iron)/5 mL oral liquid 300 mg PO DAILY anemia in 10/06/23 [History Last Taken 10/05/23 08:00] Allergy/AdvReac Type Severity Reaction Status Date / Time nitrofurantoin Allergy Intermediate Hives Verified 10/06/23 23:40 amoxicillin Allergy Mild Rash Verified 10/06/23 23:40 clindamycin Allergy Mild unknown Verified 10/06/23 23:40 Surgical History S/P ureteral stent placement Social History adopted: No household members: spouse and children number of children: 1 current occupational status: employed current occupation: [employer] pets and animals: Yes pets and animals: dog(s) history of recent travel: Yes ([place]) out of state: Yes out of country: No sexually active: Yes Smoking Status: Never smoker alcohol intake: current alcohol intake frequency: a few times a month details: none with substance use type: does not use well-balanced diet: daily or most days caffeine: Yes Type: carbonated beverages Number of servings: 1 eating out: 4 or more times/week during the past year weight has: remained stable what type of physical activity do you participate in: walking frequency: 5-6 times per week duration: 30-45 minutes/day jordyn/episcopal: Mu-Ism seatbelt use: always do you feel safe at home: Yes 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 Date Name GA/Weeks Outcome Route Bth Weight Infant Gen Labor Lgth Anesthesia Del Locatn Provider FOB 09/24/21 Ronak 40 live - full term Female [facility] Edgardo 10/14/23 Alejandra 39 live - full term [facility] SM/KW Delivery Date: 09/24/21 Last Updated by: Nieves Aparicio IOL Covid Delivery Date: 10/14/23 Last Updated by: Nieves PALM advanced dilation ROS Constitutional Constitutional: Reports systems reviewed and no addt'l complaints, except as documented Gastrointestinal Gastrointestinal: Denies bloating, constipation, cramping, diarrhea, nausea or vomiting Genitourinary Genitourinary: Reports other Details: Denies vaginal odor, vaginal bleeding, or vaginal discharge ; Denies difficulty urinating or flank pain NST FHR Rate Baby A Baseline: 140 Variability:: Moderate Accelerations:: 15 x 15 Decelerations:: None NST Reactive:: Yes FHR Category:: Category I Assessment & Plan (1) False labor after 37 completed weeks of gestation: PLAN: cervix is unchanged after 2 hours. ok to dc to home with labor precautions Charges/Coding Multi Select Codes Urinary/Genital Urinary/Genital CPT Codes: 01922-51 non-stress test Interp
== END 2023-10-09 04:03 | disposition home or self-care (01) ==
LOC: WPOUT 02:27 → WP 02:28
PROVIDERS: PCP Family Medicine; Referring Provider Obstetrics & Gynecology; Visit Provider Obstetrics & Gynecology
DX: Z00.00 Encounter for general adult medical examination without abnormal findings (principal)
CPT/HCPCS: 59025; 59050; 99221; G0378

== ENCOUNTER 2023-10-14 16:20 | Inpatient (IN) | payer BC, SELFPAY ==
[2023-10-14] VITALS (31 sets, daily range): BP systolic 102–134; BP diastolic 55–85; PULSE 82–138; TEMP 36.4–37.1; O2SAT 89–100; BMI 31.0
[2023-10-14] MEDS: Lactated Ringers 1,000 ML 50 ML IV (17:05)
[2023-10-14 17:37] LABS: Absolute Lymphocyte Count 1.97 X10^3/uL (0.83-4.51); Absolute Neutrophil Count 5.8 X10^3/uL (2.0-7.7); Basophil# 0.02 X10^3/uL; Basophil% 0.2 % (0-1); Eosinophil# 0.01 X10^3/uL; Eosinophils% 0.1 % (0-5); Hematocrit 33.5 % (37-47); Hemoglobin 10.1 g/dL (12.0-15.0); Lymphocyte # 1.97 X10^3/ul (0.83-4.51); Lymphocyte % 23.7 % (19-41); Mean Corp Hgb Conc 30.1 g/dL (32-36); Mean Corpuscular Hgb 23.2 pg (27.0-32.0); Mean Corpuscular Volume 76.8 fL (81-99); Mean Platelet Vol. 11.9 fl (6.2-12.0); NRBC Flagged by Analyzer 0 % (0-5); Neutrophil # 5.75 X10^3/uL (2.7-7.7); Neutrophil % 69.4 % (47-70); Platelet Count 217 K/mm3 (150-450); RBC Distribution Width CV 15.1 % (11.6-14.6); Red Blood Count 4.36 M/mm3 (4.2-5.4); White Blood Count 8.3 K/mm3 (4.4-11.0)
[2023-10-14] MEDS: LACTATED RINGERS 500 ML 999 ML IV ×2 (17:52→23:18)
--- NOTE | 2023-10-14 18:19 | HP.PCM.OB_ITS ---
HPI - General General Date of Admission: 10/14/23 Date of Service: 10/15/[address], is a 28 F 39.6 weeks who presents to unit from office for induction of labor for advanced dilation. 5-/-2 in the office today Maternal Data Information MARBIN Calculator Estimated Delivery Date Method Current WG Current Estimate 10/15/23 LMP (Certain) 39w 6d Other Estimates 10/20/23 Ultrasound #1 39w 1d Final MARBIN: 10/15/23 Final MARBIN Source: US >20 weeks Gestational age: 36.9 weeks [facility] Medical History Abnormal glucose Abnormal glucose affecting depression Home Medications acetaminophen 500 mg tablet (Tylenol Extra Strength) 1,000 mg PO Q6H PRN pain 06/25/23 [History Last Taken 06/27/23 10:00] famotidine 20 mg tablet (Acid-Pep) 20 mg PO QHS heartburn 10/06/23 [History Last Taken 10/13/23] ferrous sulfate 300 mg (60 mg iron)/5 mL oral liquid 300 mg PO DAILY anemia in 10/06/23 [History Last Taken 10/05/23 08:00] Allergy/AdvReac Type Severity Reaction Status Date / Time nitrofurantoin Allergy Intermediate Hives Verified 10/06/23 23:40 amoxicillin Allergy Mild Rash Verified 10/06/23 23:40 clindamycin Allergy Mild unknown Verified 10/06/23 23:40 Surgical History S/P ureteral stent placement Social History adopted: No household members: spouse and children number of children: 1 current occupational status: employed current occupation: [employer] pets and animals: Yes pets and animals: dog(s) history of recent travel: Yes ([place]) out of state: Yes out of country: No sexually active: Yes Smoking Status: Never smoker alcohol intake: current alcohol intake frequency: a few times a month details: none with substance use type: does not use well-balanced diet: daily or most days caffeine: Yes Type: carbonated beverages Number of servings: 1 eating out: 4 or more times/week during the past year weight has: remained stable what type of physical activity do you participate in: walking frequency: 5-6 times per week duration: 30-45 minutes/day jordyn/mormon: Episcopal seatbelt use: always do you feel safe at home: Yes 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 Date Name GA/Weeks Outcome Route Bth Weight Infant Gen Labor Lgth Anesthesia Del Locatn Provider FOB 09/24/21 Ronak 40 live - full term Female [facility] Edgardo Delivery Date: 09/24/21 Last Updated by: Nieves PALM Covid Visit Details Expected Delivery Route/Plan Labor Preferences- CB/BF classes: [] labor support person: [] labor intervention preferences: [] pain management options preferred: epidural cut cord/dad catch: yes : [] PP control planned: [] discussed possible routes of delivery and associated risks: [] special requests: [] Plans Covid status: discussed Flu vaccine: Tdap vaccine: Rhogam: na LARC form signed: declined movement and labor precautions reviewed. Problem list reviewed and updated with the most current plan of care details and appropriate orders placed. Relevant counseling for the gestational age provided. Continue routine care and follow up unless otherwise noted in visit notes/problem list details OB Flowsheet Initial Weight: Not Recorded Date -?-?-?-?-?-?-?-?-?-?-?-?- EGA Weight BP Urine Prot -?-?-?-?-?-?-?-?-?-?-?-?- Glucose FHR FuHt Pres Dilation -?-?-?-?-?-?-?-?-?-?-?-?- Effaced St Visit Note 03/20/23 -?-?-?-?-?-?-?-?-?-?-?-?- 10w 1d 154 lb 6 oz 116/77 -?-?-?-?-?-?-?-?--?-?-?-?- -?-?-?-?-?-?-?-?-?-?-?-?- JV- handheld ult rasound shows CRL of 29.3 (9weeks 5 days) has formal ultrasound scheduled for friday. wants nIPT. JV- handheld ultrasound show s heart tones and CRL of 29.3 (9weeks 5 days) has formal ultrasound scheduled for friday. wants nIPT. 04/14/23 -?-?-?-?-?-?-?-?-?-?-?-?- 13w 5d 154 lb 114/75 Negative -?-?-?-?-?-?-?-?-?-?-?-?- Negative 150 -?-?-?-?-?-?-?-?-?-?-?-?- LC- no vb/crampi ng. discussed and declines AFP. mfm us ordered. to obtained nob labs today. normal nipt.GIRL! 05/12/23 -?-?-?-?-?-?-?-?-?-?-?-?- 17w 5d 160 lb 4 oz 124/76 Nega tive -?-?-?-?-?-?-?-?-?-?-?-?- Negative 150 -?-?-?-?-?-?-?-?-?-?-?-?- SM- no vb lof go od fm no regular ctx 06/09/23 -?-?-?-?-?-?-?-?-?-?-?-?- 21w 5d 168 lb 104/68 Negative -?-?-?-?-?--?-?-?-?-?-?-?- Negative 155 -?-?-?-?-?-?-?-?-?-?-?-?- LC- no vb/crampi ng. feeling flutters. low lying placenta, pelvic rest advised. LC- no vb/cramping. feeling flutters. low lying placenta, pelvic rest advised. gc/ct obtained today. 06/18/23 -?-?-?-?-?-?-?-?-?-?-?-?- 23w 0d 169 lb 110/70 Negative -?-?-?-?-?-?-?-?-?-?-?-?- Negative 0 -?-?-?-?-?-?-?-?-?-?-?-?- JV- no lof, vagi nal bleeding, or dec fm. pt presents for right flank pain and large blood on dip. cx closed, ordering renal ultrasound. urine sent for culture. 07/09/23 -?-?-?-?-?-?-?-?-?-?-?-?- 26w 0d 165 lb 8 oz 132/88 -?-?-?-?-?-?-?-?-?-?-?-?- 150 -?-?-?-?-?-?-?-?-?-?-?-?- JV- no lof, vagi nal bleeding, or dec fm. has follow up in 2 days for removal of stent. 07/21/23 -?-?-?-?-?-?-?-?-?-?-?-?- 27w 5d 170 lb 8 oz 115/81 Nega tive -?-?-?-?-?-?-?-?-?-?-?-?- Negative 156 27 -?-?-?-?-?-?-?-?-?-?-?-?- LC- no lof/vb/ct x. good fm. had f/u ultrasound for placenta. report pending. LC- no lof/vb/ctx. good fm. had f/u ultrasound for placenta. report pending. larc signed. has 3 hour glucose scheduled. started on slow release iron. repeat cbc in 4 weeks. 08/11/23 -?-?-?-?-?-?-?-?-?-?-?-?- 30w 5d 172 lb 2 oz 111/69 Nega tive -?-?-?-?-?-?-?-?-?-?-?-?- Negative 150 30 -?-?-?-?-?-?-?-?-?-?-?-?- LC- no lof/vb/ct x. good fm. passed 3 hour glucose. cbc ordered LC- no lof/vb/ctx. good fm. passed 3 hour glucose. cbc ordered. placenta no longer low lying. 08/22/23 -?-?-?-?-?-?-?-?-?-?-?-?- 32w 2d 175 lb 4 oz 125/73 Nega tive -?-?-?-?-?-?-?-?-?-?-?-?- Negative 140 32 Cephalic -?-?-?-?-?-?-?-?-?-?-?-?- SM- no vb lof go od fm n oregular ctx 09/01/23 -?-?-?-?-?-?-?-?-?-?-?-?- 33w 5d 176 lb 2 oz 113/74 Nega tive -?-?-?-?-?-?-?-?-?-?-?-?- Negative 144 33.5 -?-?-?-?-?-?-?-?-?-?-?-?- JV- no lof, vagi nal bleeding, or dec fm. 09/15/23 -?-?-?-?-?-?-?-?-?-?-?-?- 35w 5d 181 lb 109/72 Negative -?-?-?-?-?-?-?-?-?-?-?-?- Negative 150 36 -?-?-?-?-?-?-?-?-?-?-?-?- JV- no lof, vagi nal bleeding, or dec fm. plans to hand express colostrum after 37 weeks 09/23/23 -?-?-?-?-?-?-?-?-?-?-?-?- 36w 6d 181 lb 2 oz 114/71 Nega tive -?-?-?-?-?-?-?-?-?-?-?-?- Negative 140 37 Cephalic 2 .5 -?-?-?-?-?-?-?-?-?-?-?-?- 60 -2 Kw- no vb/ lof/ctx. good fm. gbs today. no concerns today. 09/29/23 -?-?-?-?-?-?-?-?-?-?-?-?- 37w 5d 182 lb 4 oz 118/81 Nega tive -?-?-?-?-?-?-?-?-?-?-?-?- Negative 145 38 Cephalic 2 .5 -?-?-?-?-?-?-?-?-?-?-?-?- SM-- no vb lof g ood fm n oregular ctx 10/06/23 -?-?-?-?-?-?-?-?-?-?-?-?- 38w 5d 185 lb 132/81 Trace -?-?-?-?-?-?-?-?-?-?-?-?- Negative 150 38 Cephalic 3 .5 -?-?-?-?-?-?-?-?-?-?-?-?- 60 -2 SM- no vb lof good fm no regualr ctx SM- no vb lof good fm no reg ualr ctx membranes swept 10/14/23 -?-?-?-?-?-?-?-?-?-?-?-?- 39w 6d 165 lb 132/88 Negative -?-?-?-?-?-?-?-?-?-?-?-?- Negative 140 38 Cephalic 5 .5 -?-?-?-?-?-?-?-?-?-?-?-?- 70 -1 KW-no vb/l of. irregular contractions. good fm. To WP for labor NST FHR Rate Baby A Baseline: 145 Variability:: Moderate Accelerations:: 15 x 15 Decelerations:: None NST Reactive:: Yes FHR Category:: Category I Uterine Activity:: irregular Vital Signs Vital Signs Vital Signs: 10/14/23 17:55 10/14/23 17:55 10/14/23 17:55 Temperature Temperature Source Temporal Pulse Rate 93 Blood Pressure 125/85 H BP Systolic 125 BP Diastolic 85 Pulse Ox 10/14/23 17:55 10/14/23 17:55 10/14/23 17:55 Temperature 98.8 F Temperature Source Pulse Rate 92 Blood Pressure BP Systolic BP Diastolic Pulse Ox 98 Weight Weight: 180 lb 15.992 oz Body Mass Index (BMI) 31.0 Labs Labs Labs: Blood Type A POSITIVE Antibody Screen NEGATIVE Hct 33.5 % (37-47) L Hgb 10.1 g/dL (12.0-15.0) L Obstetrics Ultrasound Syphilis Total Ab Non-reactive Rubella IgG Antibody Reactive (Nonreactive) Hep Bs Antigen Non-Reactive (Nonreactive) Hepatitis C Antibody Non-Reactive (Nonreactive) Chlamydia DNA ([place]) Negative (Negative) N.gonorrhoeae DNA ([place]) Negative (Negative) HIV 1&2 Antibody Non-Reactive (Nonreactive) Glucose 1 Hr 50 gm 162 mg/dL (70-140) H Gest Glucose Tolerance MG/DL Assessment & Plan (1) Encounter for induction of labor: COMMENT: advanced dilation PLAN: Patient presents IAL, plan expectant management for , pitocin/AROM PRN if needed. Pain management: plans epidural. GBS negative. Management of any complications: none I have reviewed the [facility] and made any clinically relevant updates. (2) Anemia affecting : COMMENT: slow release iron. repeat cbc in 4 weeks (3) Abnormal glucose: COMMENT: normal 3 hr. GTT (4) Kidney stone complicating : COMMENT: 5.[address] [facility] (5) H/O depression, currently : COMMENT: off celexa. counseling encouraged. (6) Supervision of high-risk : COMMENT: PRR , MARBIN 10/15/23, girl Alejandra Simons Yordan (7) : QUALIFIERS: Weeks of gestation: 39 weeks Qualified Code(s): Z3A.39 - 39 weeks gestation of COMMENT: GBS neg,nl NIPT and declined carrier testing, ntd. anatomy reviewed. Charges/Coding Multi Select Codes Urinary/Genital Urinary/Genital CPT Codes: No Charge
--- NOTE | 2023-10-14 18:19 | PCM.HP.OB ---
HPI - General General Date of Admission: 10/14/23 Date of Service: 10/15/[address], is a 28 F 39.6 weeks who presents to unit from office for induction of labor for advanced dilation. 5-/-2 in the office today Maternal Data Information MARBIN Calculator Estimated Delivery Date Method Current WG Current Estimate 10/15/23 LMP (Certain) 39w 6d Other Estimates 10/20/23 Ultrasound #1 39w 1d Final MARBIN: 10/15/23 Final MARBIN Source: [place] >20 weeks Gestational age: 36.9 weeks [facility] Medical History Abnormal glucose Abnormal glucose affecting depression Home Medications acetaminophen 500 mg tablet (Tylenol Extra Strength) 1,000 mg PO Q6H PRN pain 06/25/23 [History Last Taken 06/27/23 10:00] famotidine 20 mg tablet (Acid-Pep) 20 mg PO QHS heartburn 10/06/23 [History Last Taken 10/13/23] ferrous sulfate 300 mg (60 mg iron)/5 mL oral liquid 300 mg PO DAILY anemia in 10/06/23 [History Last Taken 10/05/23 08:00] Allergy/AdvReac Type Severity Reaction Status Date / Time nitrofurantoin Allergy Intermediate Hives Verified 10/06/23 23:40 amoxicillin Allergy Mild Rash Verified 10/06/23 23:40 clindamycin Allergy Mild unknown Verified 10/06/23 23:40 Surgical History S/P ureteral stent placement Social History adopted: No household members: spouse and children number of children: 1 current occupational status: employed current occupation: [employer] pets and animals: Yes pets and animals: dog(s) history of recent travel: Yes ([place]) out of state: Yes out of country: No sexually active: Yes Smoking Status: Never smoker alcohol intake: current alcohol intake frequency: a few times a month details: none with substance use type: does not use well-balanced diet: daily or most days caffeine: Yes Type: carbonated beverages Number of servings: 1 eating out: 4 or more times/week during the past year weight has: remained stable what type of physical activity do you participate in: walking frequency: 5-6 times per week duration: 30-45 minutes/day jordyn/mandaeism: Buddhist seatbelt use: always do you feel safe at home: Yes 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 Date Name GA/Weeks Outcome Route Bth Weight Infant Gen Labor Lgth Anesthesia Del Locatn Provider FOB 09/24/21 Ronak 40 live - full term Female [facility] Edgardo Delivery Date: 09/24/21 Last Updated by: Nieves Kumar Visit Details Expected Delivery Route/Plan Labor Preferences- CB/BF classes: [] labor support person: [] labor intervention preferences: [] pain management options preferred: epidural cut cord/dad catch: yes : [] PP control planned: [] discussed possible routes of delivery and associated risks: [] special requests: [] Plans Covid status: discussed Flu vaccine: Tdap vaccine: Rhogam: na LARC form signed: declined movement and labor precautions reviewed. Problem list reviewed and updated with the most current plan of care details and appropriate orders placed. Relevant counseling for the gestational age provided. Continue routine care and follow up unless otherwise noted in visit notes/problem list details OB Flowsheet Initial Weight: Not Recorded Date <del>?</del> EGA Weight BP Urine Prot <del>?</del> Glucose FHR FuHt Pres Dilation <del>?</del> Effaced St Visit Note 03/20/23 <del>?</del> 10w 1d 154 lb 6 oz 116/77 <del>?</del> <del>?</del> JV- handheld ultrasound shows CRL of 29.3 (9weeks 5 days) has formal ultrasound scheduled for friday. wants nIPT. JV- handheld ultrasound shows heart tones and CRL of 29.3 (9weeks 5 days) has formal ultrasound scheduled for friday. wants nIPT. 04/14/23 <del>?</del> 13w 5d 154 lb 114/75 Negative <del>?</del> Negative 150 <del>?</del> LC- no vb/cramping. discussed and declines AFP. mfm us ordered. to obtained nob labs today. normal nipt.GIRL! 05/12/23 <del>?</del> 17w 5d 160 lb 4 oz 124/76 Negative <del>?</del> Negative 150 <del>?</del> SM- no vb lof good fm no regular ctx 06/09/23 <del>?</del> 21w 5d 168 lb 104/68 Negative <del>?</del> Negative 155 <del>?</del> LC- no vb/cramping. feeling flutters. low lying placenta, pelvic rest advised. LC- no vb/cramping. feeling flutters. low lying placenta, pelvic rest advised. gc/ct obtained today. 06/18/23 <del>?</del> 23w 0d 169 lb 110/70 Negative <del>?</del> Negative 0 <del>?</del> JV- no lof, vaginal bleeding, or dec fm. pt presents for right flank pain and large blood on dip. cx closed, ordering renal ultrasound. urine sent for culture. 07/09/23 <del>?</del> 26w 0d 165 lb 8 oz 132/88 <del>?</del> 150 <del>?</del> JV- no lof, vaginal bleeding, or dec fm. has follow up in 2 days for removal of stent. 07/21/23 <del>?</del> 27w 5d 170 lb 8 oz 115/81 Negative <del>?</del> Negative 156 27 <del>?</del> LC- no lof/vb/ctx. good fm. had f/u ultrasound for placenta. report pending. LC- no lof/vb/ctx. good fm. had f/u ultrasound for placenta. report pending. larc signed. has 3 hour glucose scheduled. started on slow release iron. repeat cbc in 4 weeks. 08/11/23 <del>?</del> 30w 5d 172 lb 2 oz 111/69 Negative <del>?</del> Negative 150 30 <del>?</del> LC- no lof/vb/ctx. good fm. passed 3 hour glucose. cbc ordered LC- no lof/vb/ctx. good fm. passed 3 hour glucose. cbc ordered. placenta no longer low lying. 08/22/23 <del>?</del> 32w 2d 175 lb 4 oz 125/73 Negative <del>?</del> Negative 140 32 Cephalic <del>?</del> SM- no vb lof good fm n oregular ctx 09/01/23 <del>?</del> 33w 5d 176 lb 2 oz 113/74 Negative <del>?</del> Negative 144 33.5 <del>?</del> JV- no lof, vaginal bleeding, or dec fm. 09/15/23 <del>?</del> 35w 5d 181 lb 109/72 Negative <del>?</del> Negative 150 36 <del>?</del> JV- no lof, vaginal bleeding, or dec fm. plans to hand express colostrum after 37 weeks 09/23/23 <del>?</del> 36w 6d 181 lb 2 oz 114/71 Negative <del>?</del> Negative 140 37 Cephalic 2.5 <del>?</del> 60 -2 Kw- no vb/lof/ctx. good fm. gbs today. no concerns today. 09/29/23 <del>?</del> 37w 5d 182 lb 4 oz 118/81 Negative <del>?</del> Negative 145 38 Cephalic 2.5 <del>?</del> SM-- no vb lof good fm n oregular ctx 10/06/23 <del>?</del> 38w 5d 185 lb 132/81 Trace <del>?</del> Negative 150 38 Cephalic 3.5 <del>?</del> 60 -2 SM- no vb lof good fm no regualr ctx SM- no vb lof good fm no regualr ctx membranes swept 10/14/23 <del>?</del> 39w 6d 165 lb 132/88 Negative <del>?</del> Negative 140 38 Cephalic 5.5 <del>?</del> 70 -1 KW-no vb/lof. irregular contractions. good fm. To WP for labor NST FHR Rate Baby A Baseline: 145 Variability:: Moderate Accelerations:: 15 x 15 Decelerations:: None NST Reactive:: Yes FHR Category:: Category I Uterine Activity:: irregular Vital Signs Vital Signs Vital Signs: 10/14/23 17:55 10/14/23 17:55 10/14/23 17:55 Temperature Temperature Source Temporal Pulse Rate 93 Blood Pressure 125/85 H BP Systolic 125 BP Diastolic 85 Pulse Ox 10/14/23 17:55 10/14/23 17:55 10/14/23 17:55 Temperature 98.8 F Temperature Source Pulse Rate 92 Blood Pressure BP Systolic BP Diastolic Pulse Ox 98 Weight Weight: 180 lb 15.992 oz Body Mass Index (BMI) 31.0 Labs Labs Labs: Blood Type A POSITIVE Antibody Screen NEGATIVE Hct 33.5 % (37-47) L Hgb 10.1 g/dL (12.0-15.0) L Obstetrics Ultrasound Syphilis Total Ab Non-reactive Rubella IgG Antibody Reactive (Nonreactive) Hep Bs Antigen Non-Reactive (Nonreactive) Hepatitis C Antibody Non-Reactive (Nonreactive) Chlamydia DNA ([place]) Negative (Negative) N.gonorrhoeae DNA ([place]) Negative (Negative) HIV 1&2 Antibody Non-Reactive (Nonreactive) Glucose 1 Hr 50 gm 162 mg/dL (70-140) H Gest Glucose Tolerance MG/DL Assessment & Plan (1) Encounter for induction of labor: COMMENT: advanced dilation PLAN: Patient presents IAL, plan expectant management for , pitocin/AROM PRN if needed. Pain management: plans epidural. GBS negative. Management of any complications: none I have reviewed the [facility] and made any clinically relevant updates. (2) Anemia affecting : COMMENT: slow release iron. repeat cbc in 4 weeks (3) Abnormal glucose: COMMENT: normal 3 hr. GTT (4) Kidney stone complicating : COMMENT: 5.[address] scan, s/p removal at [facility] (5) H/O depression, currently : COMMENT: off celexa. counseling encouraged. (6) Supervision of high-risk : COMMENT: PRR , MARBIN 10/15/23, girl Alejandra Simons Yordan (7) : QUALIFIERS: Weeks of gestation: 39 weeks Qualified Code(s): Z3A.39 - 39 weeks gestation of COMMENT: GBS neg,nl NIPT and declined carrier testing, ntd. anatomy reviewed. Charges/Coding Multi Select Codes Urinary/Genital Urinary/Genital CPT Codes: No Charge
[2023-10-14] MEDS: Oxytocin 15 Units/NS 250ml 15 UNITS/250 ML IV.SOLN 2 UNITS IV (18:27)
[2023-10-14 18:48] LABS: Syphilis Antibodies Non-reactive
[2023-10-14] MEDS: fentaNYL-bupivacaine (epidural) 100 ML BAG EPIDURAL (19:48)
--- NOTE | 2023-10-14 20:43 | PN_ITS ---
Progress Note comfortable with epidural current tracing: FHT: 135 Moderate variability reactive no decelerations category I tracing [place]: 2-4 minute Contractions Membranes:ruptured at 2040 for clear fluid SVE:7/70/-2 A/P: Continue with position changes Titrate pitocin per protocol Epidural per anesthesia Anticipate Dr Reynoso aware of above assessment and agrees with plan of care Assessment & Plan Assessment/Plan (1) Encounter for induction of labor: (2) Anemia affecting : (3) Kidney stone complicating : (4) H/O depression, currently : (5) Supervision of high-risk : (6) : QUALIFIERS: Weeks of gestation: 39 weeks Qualified Code(s): Z3A.39 - 39 weeks gestation of (7) Abnormal glucose: Multi Select Codes Urinary/Genital Urinary/Genital CPT Codes: No Charge
[2023-10-14] MEDS: Ondansetron 4 MG/2 ML Vial IV (22:23)
[2023-10-14] MEDS: Lactated Ringers 1,000 ML 200 ML IV (23:18)
--- NOTE | 2023-10-14 23:35 | PCM.PN.BLA ---
Progress Note comfortable with epidural current tracing: FHT: 170 minimal to Moderate variability reactive variable and late decelerations category II tracing [place]: 1-3 minutes Contractions Membranes:ruptured remains clear SVE:/- reviewed tracing abnormalities since last note: phone collaboration with Dr Reynoso at this time for Cat II FHT tracing. Requesting bedside evaluation for possible kiwi delivery. In route to hospital A/P: Continue with position changes Titrate pitocin per protocol Epidural per anesthesia Anticipate kiwi delivery vs P CS Dr Reynoso aware of above assessment and agrees with plan of care Assessment & Plan Assessment/Plan (1) Encounter for induction of labor: (2) Anemia affecting : (3) Kidney stone complicating : (4) H/O depression, currently : (5) Supervision of high-risk : (6) : QUALIFIERS: Weeks of gestation: 39 weeks Qualified Code(s): Z3A.39 - 39 weeks gestation of (7) Abnormal glucose: Multi Select Codes Urinary/Genital Urinary/Genital CPT Codes: No Charge
[2023-10-15] VITALS (35 sets, daily range): BP systolic 79–115; BP diastolic 44–75; PULSE 87–144; RESP 16–18; TEMP 36.1–36.7; O2SAT 96–99
--- NOTE | 2023-10-15 00:35 | EX.PCM.OBRPT ---
Assessment & Plan (1) Encounter for induction of labor: COMMENT: advanced dilation (2) Anemia affecting : COMMENT: slow release iron. repeat cbc in 4 weeks (3) Kidney stone complicating : COMMENT: 5.[address] scan, s/p removal at [facility] (4) H/O depression, currently : COMMENT: off celexa. counseling encouraged. (5) Supervision of high-risk : COMMENT: PRR , MARBIN 10/15/23, girl Alejandra Simons Yordan (6) : QUALIFIERS: Weeks of gestation: 39 weeks Qualified Code(s): Z3A.39 - 39 weeks gestation of COMMENT: GBS neg,nl NIPT and declined carrier testing, ntd. anatomy reviewed. (7) Abnormal glucose: COMMENT: normal 3 hr. GTT (8) Category II heart rate tracing during maternal care in third trimester: (9) Vacuum-assisted vaginal delivery: (10) Shoulder dystocia during labor and delivery: COMMENT: Jared suprapubic delivery of the posterior arm 60 seconds, moderate to severe Maternal Data Information MARBIN Calculator Estimated Delivery Date Method Current WG Current Estimate 10/15/23 LMP (Certain) 40w 0d Other Estimates 10/20/23 Ultrasound #1 39w 2d Vaginal Delivery Operative Information Date of Procedure: 10/15/23 Pre-Operative Diagnosis: see a/p diagnoses Post-Operative Diagnosis: same Surgery / Procedure Performed: Vacuum Assisted Vaginal Delivery (secondary to cat II tracing) Type of Anesthesia: Epidural Special Medications: none Estimated Blood Loss: 300 Fluids Replaced: crystalloid Findings Description of Procedure: Patient began pushing and developed a category 2 tracing with recurrent variable decelerations and tachycardia with minimal to moderate variability. Head was asynclitic and ROP. 's head was rotated to DARRELL. Was found to be the +1 to +2 station. Patient was counseled regarding risks of vacuum versus proceeding with a primary and the decision was made to proceed with attempted vacuum extraction. Vacuum applied and there was good descent with the first pole with a loss of suction with 1 pop-off. There was full descent and rotation of the head with the second pole with no further pop offs and the infant delivered on this attempt for total duration of the vacuum less than 2 minutes for 2 contractions. The head was delivered atraumatically and noted to have rotated into the RYAN presentation. It was clear that there was going to be a shoulder dystocia with initial downward traction on the head and therefore Jared was employed and an attempt at suprapubic pressure. Rubins maneuver was employed to rotate the shoulders and the left shoulder was anterior the right shoulder was posterior. Attempt was made to deliver the posterior arm but the arm was noted to be extended. Additional time noted but then with a gentle rocking motion the posterior arm was able to be delivered and followed by the anterior shoulders the rest the delivered within 60 seconds total duration of the shoulder dystocia. The rest of the infant delivered onto the maternal abdomen and cord was clamped and cut and gentle traction was applied to the cord and the placenta delivered spontaneously immediately following it was noted to be intact with three-vessel cord. The perineum and vagina were inspected and noted to have a second degree perineal laceration which was repaired in the usual fashion with 3-0 vicryl rapide. . EBL was 300. Patient and tolerated delivery well. Amniotic Fluid Description: Clear Placental Delivery Description: Spontaneous Placenta Disposition: [facility] Cord Vessel Description: 3 Vessels Cord Entanglement: None Delayed Cord Clamping: No Post Vaginal Delivery Medications Given After Delivery: IV Pitocin Episiotomy Description: None Complication Complications: None Procedures Urinary/Genital [id number]: [id number] Vaginal Delivery [facility]
--- NOTE | 2023-10-15 00:57 | DCINST_ITS ---
Discharge Instructions Diet Discharge Diet: No restrictions Activity Discharge Activity: Return to Normal Activity, May Not Drive (while taking narcotic pain medications.) and May Shower May resume sexual activity in: 4-6 weeks Dressing / Incision Call your doctor if your incision/area has: Continuous Slow Oozing, Sudden Increased Bleeding, Increased Pain/ Swelling, Increased Redness and Foul Smelling Discharge Follow Up Care Please Follow Up With: Chloe Reynoso MD When: Call [phone] to make an appointment with your doctor in 6 weeks. If you had elevated blood pressure or 4th degree laceration, you will need to be seen in 2 weeks. Test Results: Test results from this visit will be discussed in further detail at your follow- up appointment, if applicable. Discharge Plan Admission Admit Date/Time: 10/14/23 16:20 Attending Provider: Chloe Reynoso Primary Care Provider: José Manuel Kern Discharge Orders/Prescriptions Prescriptions: No Action ferrous sulfate 300 mg (60 mg iron)/5 mL liquid 300 mg PO DAILY famotidine [Acid-Pep] 20 mg tablet 20 mg PO QHS acetaminophen [Tylenol Extra Strength] 500 mg tablet 1,000 mg PO Q6H PRN (Reason: pain) Referrals / Follow Up: José Manuel Kern MD [Primary Care Provider] -
[2023-10-15] MEDS: Oxytocin 15 Units/NS 250ml 15 UNITS/250 ML IV.SOLN 83 UNITS IV (01:38)
--- NOTE | 2023-10-15 07:56 | PCM.PN.OB ---
Subjective Subjective Patient doing well without complaints. Tolerating PO. Has not ambulated or voided yet due to epidural. Feeding well. Denies chest pain, shortness of breath, calf pain/swelling, fevers, chills, lightheadedness. Objective Data Objective Data Vital Signs: Vital Signs Temp Pulse Resp BP Pulse Ox O2 Del Method 98.1 F 91 16 111/64 96 Room Air 10/15/23 03:45 10/15/23 03:45 10/15/23 03:45 10/15/23 03:45 10/15/23 03:45 10/15/23 03:45 Oxygen Delivery Method Room Air Weight: 180 lb 15.992 oz Body Mass Index (BMI) 31.0 Intake & Output: Intake and Output for Last 24 Hours 10/13/23 10/14/23 10/15/23 23:59 23:59 23:59 Intake Total 1516.30 / 1516.30 1733.7 / 1733.7 Output Total 800 / 800 Balance 1516.30 / 1516.30 933.7 / 933.7 Lab / Micro Data 10/14/23 17:05 Labs: Laboratory Results - last 24 hr 10/14/23 17:05: WBC 8.3, RBC 4.36, Hgb 10.1 L, Hct 33.5 L, MCV 76.8 L, MCH 23.2 L, MCHC 30.1 L, RDW Std Deviation 42.0, RDW Coeff of Rahel 15.1 H, Plt Count 217, MPV 11.9, Immature Gran % (Auto) 0.600, Neut % (Auto) 69.4, Lymph % (Auto) 23.7, [place] % (Auto) 6.0, Eos % (Auto) 0.1, Baso % (Auto) 0.2, Absolute Neuts (auto) 5.8, Absolute Lymphs (auto) 1.97, Nucleated RBC % 0, Syphilis Total Ab Non-reactive, Blood Type A POSITIVE, Antibody Screen NEGATIVE Physical Exam Const alert and oriented x3 HEENT normocephalic Eyes PERRL Neck full ROM Resp normal respiratory effort GI soft to palpation GI Narrative: FF below U Assessment & Plan (1) Vacuum-assisted vaginal delivery: (2) Shoulder dystocia during labor and delivery: COMMENT: Jared suprapubic delivery of the posterior arm 60 seconds, moderate to severe (3) Anemia affecting : QUALIFIERS: Trimester: unspecified trimester Qualified Code(s): O99.019 - Anemia complicating , unspecified trimester COMMENT: slow release iron. repeat cbc in 4 weeks (4) H/O depression, currently : COMMENT: off celexa. counseling encouraged. PLAN: Plan s/p PPD # 1 1. routine post delivery care 2. breast feeding- support given 3. rh positive 4. rubella immune
[2023-10-15] MEDS: Senna/Docusate Sodium 1 Tablet PO (08:30)
[2023-10-15] MEDS: Ibuprofen 600 MG Tablet PO ×2 (08:30→15:11)
--- NOTE | 2023-10-15 09:30 | NURSING ---
Assisted pt to get up to the toilet to attempt to void, pt unable to void.
--- NOTE | 2023-10-15 11:00 | NURSING ---
Pt in shower and instructed to attempt to void in shower. Pt reports that she was unable to void.
--- NOTE | 2023-10-15 12:50 | NURSING ---
Pt up to toilet and states I felt like urine dribbled out . Pt voided 20 ml. Spoke with Janet, ore charger and she states to bladder scan pt.
--- NOTE | 2023-10-15 13:15 | NURSING ---
Bedside bladder scan performed shows 691 ml urine in bladder. Call placed to Dr. Aburto to confirm if she wants indwelling catheter placed. Awaiting return call.
--- NOTE | 2023-10-15 13:40 | NURSING ---
Discussed with pt that standing order is to place jones catheter if unable to void at this time. Pt wishes to attempt to void on toilet again before placing catheter.
[2023-10-15] MEDS: Acetaminophen 500 MG Tablet 1000 MG PO (17:09)
[2023-10-16] MEDS: Acetaminophen 500 MG Tablet 1000 MG PO (01:47)
[2023-10-16 02:00] VITALS: BP 109/60; PULSE 100; RESP 16; TEMP 36.6; O2SAT 97
--- NOTE | 2023-10-16 08:17 | PCM.PN.OB ---
Subjective Subjective Patient doing well without complaints. Tolerating PO. Ambulating and voiding without difficulty. feeding well. Denies chest pain, shortness of breath, calf pain/swelling, fevers, chills, lightheadedness. Objective Data Objective Data Vital Signs: Vital Signs Temp Pulse Resp BP Pulse Ox O2 Del Method 97.9 F 100 16 109/60 97 Room Air 10/16/23 02:00 10/16/23 02:00 10/16/23 02:00 10/16/23 02:00 10/16/23 02:00 10/16/23 02:00 Oxygen Delivery Method Room Air Weight: 180 lb 15.992 oz Body Mass Index (BMI) 31.0 Intake & Output: Intake and Output for Last 24 Hours 10/14/23 10/15/23 10/16/23 23:59 23:59 23:59 Intake Total 1516.30 / 1516.30 1982.7 / 1982. Output Total 2240 / 2240 Balance 1516.30 / 1516.30 -256.3 / -256.3 Lab / Micro Data 10/14/23 17:05 ROS Constitutional Constitutional: Reports systems reviewed and no addt'l complaints, except as documented Cardiovascular Cardiovascular: Reports systems reviewed and no addt'l complaints, except as documented Respiratory/Chest Respiratory/Chest: Reports systems reviewed and no addt'l complaints, except as documented Gastrointestinal Gastrointestinal: Reports systems reviewed and no addt'l complaints, except as documented Physical Exam Const alert, oriented x3 and no apparent distress HEENT Head and Scalp: atraumatic Resp normal respiratory effort GI soft to palpation and non-tender Bimanual Exam - Vag & Uterus: uterus non-tender Uterus Palpation: uterus fundus firm (below Umbilicus) Assessment & Plan (1) Shoulder dystocia during labor and delivery: COMMENT: Jared suprapubic delivery of the posterior arm 60 seconds, moderate to severe (2) Vacuum-assisted vaginal delivery: COMMENT: (3) Anemia affecting : QUALIFIERS: Trimester: unspecified trimester Qualified Code(s): O99.019 - Anemia complicating , unspecified trimester COMMENT: slow release iron. repeat cbc in 4 weeks (4) H/O depression, currently : COMMENT: off celexa. counseling encouraged. PLAN: Plan s/p PPD # 2 1. routine post delivery care 2. breast feeding- support given 3. rh positive 4. rubella immune
[2023-10-16 08:52] VITALS: BP 116/76; PULSE 100; RESP 16; TEMP 36.8; O2SAT 97
[2023-10-16] MEDS: Senna/Docusate Sodium 1 Tablet PO (09:00)
--- NOTE | 2023-10-17 08:53 | CASEMGMT ---
Labor and Delivery Vamp Marker Date of Referral: 10/15/23 Time of Referral: 0412 Date of Assessment: 10/17/23 Time of Assessment: 1130 Intervention: Sw consult received due to maternal mental health history positive for history of depression, and maternal grandfather has history of alcoholism. Sw presented to bedside and introduced self to mother of baby (MOB- Lydia) and father of baby (FOB- Lars). Sw explained reason for sw involvement and completed assessment with both parents. MOB stated that she did experience depression following the delivery of her first child. MOB stated at that time she was sad and overwhelmed. MOB states that she never had thoughts of hurting herself or her baby, and never felt as though she was not bonded with her. MOB reports that at this time she feels a connection with baby, and feels more secure and ready for this journey. FOB states that he would be able to recognize a change in MOB and would know how to support her if she were to struggle during this period. Both parents are gainfully employed, connected to natural supports and have obtained all necessary items for baby (safe sleep space, clothes, diapers, wipes and a breast pump). Sw utilized active listening and provided parents with list of community resources and literature for their review regarding signs and symptoms of baby blues and depression and anxiety to be on the lookout for. Assessment: Parents were engaged and talkative during psychosocial assessment. MOB open to discuss her experience with anxiety/ depression following the last delivery. Parents have two children together and have been together since 7th/ 8th grade. They were observed to be very close and supportive of one another. FOB was observed holding baby and providing appropriate hands on care- holding her in loving manner. Parents feel eager for discharge and do not express any needs or concerns at this time. Plan: MOB and baby to be discharged when medically ready. Justyn Pearson, DOCK BOSS, [employer] G[employer]
--- NOTE | 2023-10-20 13:17 | NURSING ---
Attempted follow up phone call. No answer, voicemail left for pt. with unit phone number if she has questions or concerns.
== END 2023-10-16 12:00 | disposition home or self-care (01) | DRG 807 ==
PROVIDERS: Admitting Provider Advanced Practice Midwife; PCP Family Medicine; Referring Provider Advanced Practice Midwife; Visit Provider Obstetrics & Gynecology
DX: O76 Abnormality in fetal heart rate and rhythm complicating labor and delivery (principal); Z37.0 Single live birth; O66.0 Obstructed labor due to shoulder dystocia; O70.1 Second degree perineal laceration during delivery; O99.02 Anemia complicating childbirth; Z3A.39 39 weeks gestation of pregnancy; Z87.59 Personal history of other complications of pregnancy, childbirth and the puerperium
CPT/HCPCS: 59025; 59050; 85025; 86780; 86850; 86900; 86901; 99221; J7120; G0378; J2405

== ENCOUNTER → 2023-10-30 | Outpatient (CLI) | payer BC, SELFPAY ==
[2023-10-30 13:11] LABS: Color, Urine Yellow (Yellow); Glucose, Dipstick Normal (Normal); Ketone-Dipstick Negative (Negative); Leukocyte Esterase-Dipstick 500 /ul (Negative); Nitrite-Dipstick Negative (Negative); Occult Blood-Urine 25 /ul (Negative); Protein-Dipstick 30 mg/dl (Negative); Specific Gravity, Urine 1.015 (1.002-1.030); Urine Bilirubin Dipstick Negative (Negative); Urine Clarity Cloudy (Clear); Urine Urobilinogen Normal (Normal)
== END | disposition home or self-care (01) ==
LOC: LAB 12:32
PROVIDERS: PCP Family Medicine; Referring Provider Obstetrics & Gynecology; Visit Provider Obstetrics & Gynecology
DX: R30.0 Dysuria (principal)
CPT/HCPCS: 81002; 87077; 87086; 87088; 87186

== ENCOUNTER → 2023-11-27 | Outpatient (CLI) | payer BC, SELFPAY ==
[2023-12-03 17:27] LABS: HPV Reflexed? NOT INDICATED
== END | disposition home or self-care (01) ==
LOC: LABSPEC 14:22
PROVIDERS: PCP Family Medicine; Referring Provider Obstetrics & Gynecology; Visit Provider Obstetrics & Gynecology
DX: Z12.4 Encounter for screening for malignant neoplasm of cervix (principal)
CPT/HCPCS: 88175; G0145